=== PATIENT | female | born 1995 | race Caucasian/White ===

== ENCOUNTER 2021-02-15 17:50 | Emergency (ER) | payer OTHER, BC, SELFPAY ==
[2021-02-15 18:05] VITALS: BP 137/84; PULSE 81; RESP 16; TEMP 37; O2SAT 99
[2021-02-15 18:07] VITALS: BP 137/84; PULSE 81; RESP 16; TEMP 37; O2SAT 99
--- NOTE | 2021-02-15 18:31 | ED.EAR ---
HPI - Ear Problem General Chief complaint: Ear Stated complaint: Ear Pain Time Seen by Provider: 02/15/21 18:21 Source: patient and RN notes reviewed Mode of arrival: ambulatory Limitations: no limitations History of Present Illness HPI Narrative: Patient presents today complaining of right ear pain x1 week with sore throat, congestion, sinus pressure, and headache x2 days. Patient saw a teledoc 3 days ago and was placed on azithromycin for her right ear pain and is on the last day of her pills and is not having any relief. She has not tried any [id number] medication for her symptoms. MD Complaint: ear pain Related Data Home Medications Medication Instructions Recorded Confirmed azithromycin 250 mg PO DIRECTED 02/15/21 02/15/21 medroxyprogesterone 10 mg PO DAILY 02/15/21 02/15/21 Allergies Allergy/AdvReac Type Severity Reaction Status Date / Time No Known Allergies Allergy Verified 02/15/21 18:04 Review of Systems Review of Systems: CONSTITUTIONAL: Denies body aches, fever, chills, or sweats. EYES: Denies visual changes, redness, or discharge. ENT: Denies rhinorrhea. + Sore throat, right ear pain, nasal congestion CARDIOVASCULAR: Denies chest pain, palpitations, or edema. RESPIRATORY: Denies cough or dyspnea. GASTROINTESTINAL: Denies abdominal pain, nausea, vomiting, or diarrhea. GENITOURINARY: Denies dysuria or hematuria. SKIN: Denies rash, itching, or wounds. MUSCULOSKELETAL: Denies back pain, joint pain, or myalgia. NEUROLOGIC: Denies numbness, tingling, or weakness.+ Headache PSYCH: Denies depression or anxiety. PMFSH Comments At time of signature, I have reviewed and agree with nursing past medical, surgical, social and family history unless otherwise noted. Please see nursing chart for further information. There is no relevant family history pertinent to the presenting complaint Exam Narrative: GENERAL: Well-appearing, well-nourished, and in no acute distress. HEAD: Normocephalic, atraumatic. EYES: EOMI. No redness or drainage. Conjunctivae normal. ENT: Mucous membranes pink and moist. Nares congested. No rhinorrhea. Left TM normal. Right TM is occluded with a deep cerumen impaction. Throat mildly erythematous without edema or exudate. Uvula midline. NECK: Normal AROM. Supple. No lymphadenopathy. CHEST: No respiratory distress. Clear to auscultation. HEART: Regular rate and rhythm. No murmur appreciated. Normal peripheral pulses. EXTREMITIES: Normal range of motion. No edema. SKIN: Warm, dry, no rash. Capillary refill normal. Normal skin turgor. NEURO: No focal deficits. Alert and oriented x3. Gait steady. PSYCH: Normal affect. No signs of depression or anxiety. Course Vital Signs Vital signs: Vital Signs Temperature 98.6 F 02/15/21 18:05 Pulse Rate 81 02/15/21 18:05 Respiratory Rate 16 02/15/21 18:05 Blood Pressure 137/84 02/15/21 18:05 Pulse Oximetry 99 02/15/21 18:05 Temperature 98.6 F 02/15/21 18:07 Pulse Rate 81 02/15/21 18:07 Respiratory Rate 16 02/15/21 18:07 Blood Pressure 137/84 02/15/21 18:07 Pulse Oximetry 99 02/15/21 18:07 Reviewed. Pt has been instructed to follow up with her PCP regarding her elevated blood pressure today. Medical Decision Making Differential Diagnosis Differential Diagnosis: URI, AOM, otitis externa, rhinitis, migraine Vital Signs Vital Signs: Vital Signs Temperature 98.6 F 02/15/21 18:05 Pulse Rate 81 02/15/21 18:05 Respiratory Rate 16 02/15/21 18:05 Blood Pressure 137/84 02/15/21 18:05 Pulse Oximetry 99 02/15/21 18:05 Temperature 98.6 F 02/15/21 18:07 Pulse Rate 81 02/15/21 18:07 Respiratory Rate 16 02/15/21 18:07 Blood Pressure 137/84 02/15/21 18:07 Pulse Oximetry 99 02/15/21 18:07 Critical Care Time Critical Care Time Critical Care Time: No Discharge Plan Discharge Clinical Impression: Right ear impacted cerumen URI (upper respiratory infection)
== END 2021-02-15 18:40 | disposition home or self-care (01) ==
PROVIDERS: Emergency Provider Nurse Practitioner; PCP Family Medicine
DX: H61.21 Impacted cerumen, right ear (principal); J06.9 Acute upper respiratory infection, unspecified; J02.9 Acute pharyngitis, unspecified; E28.2 Polycystic ovarian syndrome
CPT/HCPCS: 99213; G0463

== ENCOUNTER 2022-03-29 10:59 | Outpatient (RCR) | payer BC, SELFPAY ==
[2022-03-29 11:42] VITALS: BP 123/74; PULSE 89
== END 2022-06-27 23:59 | disposition home or self-care (01) ==
LOC: ANHOBOP 10:59
PROVIDERS: PCP Family Medicine; Visit Provider Obstetrics & Gynecology
DX: O36.8120 Decreased fetal movements, second trimester, not applicable or unspecified (principal); Z3A.21 21 weeks gestation of pregnancy
CPT/HCPCS: 59025

== ENCOUNTER 2024-05-03 20:19 | Emergency (ER) | payer OTHER, SELFPAY ==
[2024-05-03 20:20] VITALS: BP 135/79; PULSE 90; RESP 18; TEMP 36.2; O2SAT 100
--- OUTSIDE RECORDS SUMMARY | 2024-05-03 20:21 | XMS_ITS | Clinical Summary ---
Author Organization [facility] Address [address] [place] [address] Phone Care Team Providers Care [employer] P8 Developer Name Role Phone Lexx Varma MD Primary Care Provider [phone] Lexx Varma MD Unavailable [phone] Medications Norethindrone, Contraceptive, 0.35 MG Tablet TK 1 T PO QD 02/27/2019 Active Family History Medical History Relation Name Comments No Known Problems Father Liver Disease Maternal Aunt Thyroid Cancer Mother Liver Disease Paternal Grandmother MCGRATH Relation Name Status Comments Father Maternal Aunt Mother Paternal Grandmother Social History Tobacco Use Types Packs/Day Years Used Date Smoking Tobacco: Never Smokeless Tobacco: Never Tobacco Cessation:Counseling Given: No Alcohol Use Standard Drinks/Week Comments Yes 0 (1 standard drink = 0.6 oz pur e alcohol) coulpe times a month Sexually Active Control Partners Comments Yes Comments No Sex and Gender Information Value Date Recorded Sex Assigned at Not on file Legal Sex Female 2:51 AM EGG SEPARATOR Gender Identity Not on file Sexual Orientation Not on file 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 Not on file Not on file Student Not on file Not on file Not on file Last Filed Vital Signs Vital Sign Reading Time Taken Comments Blood Pressure 118/76 03/27/2019 9:25 AM EGG SEPARATOR Pulse 82 03/27/2019 9:25 AM EGG SEPARATOR Temperature - - Respiratory Rate 16 03/27/2019 9:25 AM EGG SEPARATOR Oxygen Saturation 98% 03/27/2019 9:25 AM EGG SEPARATOR Inhaled Oxygen Concentration - - Weight 94.8 kg (209 lb) 03/27/2019 9:25 AM EGG SEPARATOR Height 167.6 cm (5' 6 ) 03/27/2019 9:25 AM EGG SEPARATOR Body Mass Index 33.73 03/27/2019 9:25 AM EGG SEPARATOR Plan of Treatment Health Maintenance Due Date Last Done Comments Hepatitis C Virus (HCV) Screening 1994 Influenza Immunization (#1) 2023 03/27/2008 SARS-COV-2 Immunization ( season) 2023 02/28/2021, 07/02/2020, 06/11/2020 Respiratory Syncytial Virus (RSV) Immunization (Adult) (1 - 1-dose 75+ series) 2069 Hepatitis B Immunization Completed 996, 01/31/1995, 1994, Additional history exists DTaP/Tdap/Td Immunization Discontinued 2006, 03/21/1997, 12/14/1995, Additional history exists TdaP Immunization Completed 06/26/2006 Human Papillomavirus (HPV) Immunization Discontinued 11/04/2008 Meningococcal Immunization (ACWY) Aged Out 11/04/2008 No longer eligible based on patient's age to complete this topic Pneumococcal Immunization Combined Aged Out No longer eligible based on patient's age to complete this topic Rotavirus Immunization Aged Out No lo nger eligible based on patient's age to complete this topic Insurance MEDICAID [place] [employer] Care Teams [employer] P8 Developer Relationship Specialty Start Date End Date Lexx Varma MD [address] [place] [address] [place] [address] PCP - General Family Medicine 11/23/20 Lexx Varma MD [address] [place] [address] [place] [address] Family Medicine 11/23/20
--- OUTSIDE RECORDS SUMMARY | 2024-05-03 20:21 | XMS_ITS | Referral Summary ---
Author Organization [facility] Address [address] [place] [address] Care Team Providers Care Bight Maker Name Role Phone Hazel Foley RONN-MINCING MACHINE OPERATOR Primary Care Provider [phone] Source Comments [facility],non-owned Affiliates and Associated Physician Practices is amultiple site organization consisting of ambulatory clinics and [place]in [place] and [place]. This disclosure is being madepursuant to the Care Everywhere program and may not contain all information available regarding this patient. Last updated 17.[facility] Encounters Date Type Department Care Team Description 04/11/2024 Travel 04/11/2024 8:00 AM CONCRETE ENGINEERING TECHNICIAN Procedure visit [facility] - WAX COATING MACHINE TENDER [address] [place] [address] Encounter for imaging to assess myocardial viability 03/20/2024 Orders Only [facility] - WAX COATING MACHINE TENDER [address] [place] [phone] Jacobo Mukherjee MD Missed menses 02/23/2024 Orders Only [facility] - WAX COATING MACHINE TENDER [address] [place] [phone] Jacobo Mukherjee MD 02/05/2024 11:30 AM CDT Procedure visit [facility] - WAX COATING MACHINE TENDER [address] [place] [phone] Jacobo Mukherjee MD Encounter for IUD removal 02/05/2024 Travel from Last 3 Months Allergies No known active allergies Medications * Be aware that medications may not be up to date on this document. Alwaysverify current medications with the patient. Medication Sig Dispensed Refills Start Date End Date Status Vit-DSS-Fe Fum-FA ( vitamin with iron) tablet Take 1 (one) tablet by mouth once daily Active busPIRone (Buspar) 7.5 MG tablet TAKE 1 TABLET BY MOUTH TWICE DAILY AND 1 TABLET NEEDED FOR ANXIETY Active escitalopram (Lexapro) 10 MG tablet Take 1 (one) tablet by mouth once daily 10/04/2023 Active ondansetron, disintegrating, (Zofran ODT) 4 MG tablet Take 2 (two) tablets by mouth every 8 hours as needed 01/01/2024 Active semaglutide (Wegovy) 1.7 MG/0.75ML pen Inject 1.7 mg subcutaneously every 7 days 01/29/2024 Active letrozole (Femara) 2.5 MG tablet Take two tablets daily days 3-7 of your cycle 10 tablet 5 02/23/2024 Active Active Problems Problem Noted Date Diagnosed Date Irregular menses 12/19/2022 Postcoital bleeding 12/19/2022 Encounter for routine checki ng of intrauterine contraceptive device (IUD) 12/19/2022 Encounter for supervision of low-risk , antepartum 08/02/2022 Abdominal cramping affecting 3 Comments Yes Immunizations Name Administration Dates Next Due MMR 08/05/2022(Deferred: - Mother is rubella immune) TDAP (7yrs+) 08/04/2022(Deferred: See Comment s - received 05/16/22),05/16/2022 Social History Tobacco Use Types Packs/Day Years Used Date Smoking Tobacco: Never Smokeless Tobacco: Never Tobacco Cessation:Counseling Given: Not Answered Alcohol Use Standard Drinks/Week Comments Never 0 (1 standard drink = 0.6 oz pur e alcohol) AUDIT-C Answer Date Recorded Q1: How often do you have a drink containing alc ohol? Never 06/02/2020 Average Number of Drinks Not on file 021 Q3: How often do you have si x or more drinks on one occasion? Never 06/02/2020 Overall Financial Resource Strain (CARDIA) Answe r Date Recorded How hard is it for you to pa y for the very basics like food, housing, medical care, and heating? Not very hard 08/02/2022 PHQ-2 Answer Date Recorded PHQ2 TOTAL SCORE 0 10/19/2022 [facility] - Occupational Stress Questionnaire Answer Date Recorded Do you feel stress - tense, restless, nervous, or anxious, or unable to sleep at night because your mind is troubled all the time - these days? Not at all 08/02/2022 Hunger Vital Sign Answer Date Recorded Within the past 12 months, y ou worried that your food would run out before you got the money to buy more. Never true 08/03/19 Within the past 12 months, t he food you bought just didn't last and you didn't have money to get more. Never true 08/02/2022 PRAPARE - Transportation Answer Date Re corded In the past 12 months, has l ack of transportation kept you from medical appointments or from getting medications? No 07/10 In the past 12 months, has l ack of transportation kept you from meetings, work, or from getting things needed for daily living? No 08/02/2022 Housing Stability Vital Sign Answer Juventino e Recorded In the last 12 months, was t here a time when you were not able to pay the mortgage or rent on time? No 08/02/2022 In the last 12 months, how many places have you lived? 1 08/02/2022 In the last 12 months, was t here a time when you did not have a steady place to sleep or slept in a long-term (including now)? No 08/02/2022 [place] Depression Scale Answer Date Recorded [place] Depression Scale Total 1 08/04/2022 The thought of harming myself has occurred to me . Never 08/04/2022 Comments Yes Sex and Gender Information Value Date Recorded Sex Assigned at Not on file Gender Identity Not on file Sexual Orientation Straight 11/23/2020 11 :24 AM CDT Last Filed Vital Signs Vital Sign Reading Time Taken Comments Blood Pressure 120/80 02/05/2024 11:05 AM CDT Pulse 56 08/05/2022 9:55 AM CDT Temperature 36.8 ??C (98.2 ??F) 08/05/2022 9:55 AM CD T Respiratory Rate 18 08/05/2022 9:55 AM CDT Oxygen Saturation 98% 08/05/2022 9:55 AM CDT Inhaled Oxygen Concentration - - Weight 76.2 kg (168 lb) 02/05/2024 11:05 AM CDT Height 167.6 cm (5' 6 ) 02/05/2024 11:05 AM CDT Body Mass Index 27.12 02/05/2024 11:05 AM CDT Functional Status Functional Status Response Date of Assess ment Is person deaf or have serious hearing difficult y? No 08/02/2022 Is person blind or have serious difficulty seein g? No 08/02/2022 Does person have serious dif ficulty walking/climbing stairs? No 08/02/2022 Does person have difficulty dressing/bathing? No 08/02/2022 Does person have difficulty doing errands alone? No 08/02/2022 Cognitive Status Response Date of Assessm ent Does person have difficulty concentrating/remembering/making decisions? No 08/02/2022 Plan of Treatment Upcoming Encounters Date Type Department Care Team (Late st Contact Info) Description 05/08/2024 9:00 AM CONCRETE ENGINEERING TECHNICIAN visit [facility] - WAX COATING MACHINE TENDER [address] [phone] Jacobo Mukherjee MD [address] [place] [phone] 06/05/2024 9:00 AM CONCRETE ENGINEERING TECHNICIAN visit [facility] - WAX COATING MACHINE TENDER [address] [facility] [address] [place] [phone] Jacobo Mukherjee MD [address] [place] [address] [address] [place] [phone] Procedures Procedure Name Priority Date/Time Associated Diagnosis Comments SONOGRAM - TRANSVAGINAL Routine 04/11/2024 8:20 AM CONCRETE ENGINEERING TECHNICIAN Encounter for imaging to assess myocardial viability HCG BETA BLOOD QUANTITATIVE Routine 03/25/2024 10:35 AM CONCRETE ENGINEERING TECHNICIAN Missed menses HCG BETA BLOOD QUANTITATIVE BRYCE 03/19/2024 3:26 PM CONCRETE ENGINEERING TECHNICIAN Positive urine test (HCC) FL REMOVE INTRAUTERINE DEVICE Routine 02/05/2024 11:34 AM CDT Encounter for IUD removal CULTURE STREP B Routine 07/11/2022 3:51 PM CDT Normal , third trimester (HCC) HIV-1 HIV-2 ANTIBODY + HIV P24 AG PANEL Routine 05/16/2022 Supervision of normal first in third trimester (HCC) GTT 1 HR (50G) GESTATIONAL SCREEN Routine 04/30/2022 8:04 AM CONCRETE ENGINEERING TECHNICIAN 24 weeks gestation of (HCC) HEPATITIS C AB W/RFLX TO HCV RNA QN PCR 12/25/2021 12:34 PM CDT from Last 3 Months or Most Recently Relevant to Health Maintenance Results * SONOGRAM - TRANSVAGINAL (04/11/2024 8:20 AM CONCRETE ENGINEERING TECHNICIAN) Linked Results Indication ======== NOB History ====== OB History ? 2. Para 1 Maternal Assessment Physical Exam ??Height 168 cm, 5 ft 6 in. Weight 78 kg, 172 lb. Initial weight 78 kg, 172 lb. BMI 27.76 kg/m?. Initial BMI 27.76 kg/m?. Weight gain 0 ? kg, 0 lb Method ====== Transvaginal ultrasound. View: Sufficient ========= [place] . Number of embryos: 1 Dating ====== ? Date ?Details ? Gest. age ? JOAN LMP ?02/22/2024 ?7 w + 0 d ? 11/28/2024 U/S ? 04/11/2024 ? based upon CRL ?6 w + 6 d ? 11/29/2024 Assigned dating based on the LMP, selected on 04/11/2024 ?7 w + 0 d ? 11/28/2024 Assessment Gestational sac: visualized. Location: intrauterine Yolk sac: visualized Embryo: visualized Cardiac activity: present YS ? 3.3 ? mm ?3% ?Grisolia CRL ?8.5 ? mm ?6w 6d ?? 49% ? Hadlock FHR ?125 ? bpm Maternal Structures Uterus Size 97 mm x 70 mm x 50 mm. Vol 178.2 cm? Right Ovary ?Visualized ? Size 26 mm x 15 mm x 26 mm. Vol 5.3 cm? Left Ovary ? Visualized ? Size 40 mm x 34 mm x 48 mm. Vol 34.4 cm? Cyst(s) ? 1. ?Size 34.9 mm x 27.0 mm x 30.3 mm. Mean 30.7 mm. Vol 14.950 cm?. Simple cyst ? 2. ?Size 28.7 mm x 26.9 mm x 31.6 mm. Mean 29.1 mm. Vol 12.774 cm?. Simple cyst Cul de Sac ? Visualized. Minimal free fluid visualized Impression ========= Single, live, intrauterine at 7w 0d Follow-up ======== Follow up Follow up ultrasound in 3 weeks Coding ====== Procedures ? 40306: US Preg Uterus Transvaginal [place] PACS Anatomical Region Laterality Modality Other 04/11/2024 8:20 AM CONCRETE ENGINEERING TECHNICIAN Jacobo Mukherjee MD [facility] ORDERABLES * (ABNORMAL) HCG BETA BLOOD QUANTITATIVE (03/25/2024 10:35 AM CONCRETE ENGINEERING TECHNICIAN) Only the most recent of2 resultswithin the time period is included. HCG Quant 522(H) mIU/mL [facility] Comment: Reference Range Non or premenopausal ?<5 Postmenopausal ? <10 Values from different assay methods may vary. The use of this assay to monitor or to diagnose patients with cancer or any condition unrelated to has not been cleared or approved by the FDA or the pyrometallurgical engineer of the assay. Test Performed at: [email or web address] ??[id number] DEE ARELLANO MD Blood BLOOD SPECIMEN / Unknown 03/25/2024 10:35 AM CONCRETE ENGINEERING TECHNICIAN 03/25/2024 10:37 AM CONCRETE ENGINEERING TECHNICIAN Jacobo Mukherjee MD LAB - CHEMISTRY ORD ERABLES [address] [address] * FL REMOVE INTRAUTERINE DEVICE (02/05/2024 11:34 AM CDT) Narrative Jacobo Mukherjee MD - 02/05/2024 11:34 AM CDT Jacobo Mukherjee MD ? 02/05/2024 11:34 AM See note Jacobo Mukherjee MD PROCEDURE/MINOR SABRINA GICAL ORDERABLES * CULTURE STREP B (07/11/2022 3:51 PM CDT) [facility] Culture [facility] Comment: ??STREPTOCOCCUS, GROUP B CULTURE ?Micro Number: ?[id number] ??Test Status: ? Final ??Specimen Source: ?? Anorectum/va ??Specimen Quality: ??Adequate ??Result: ?No group B Streptococcus isolated ? Note per CDC guidelines optimal recovery is ? achieved by swabbing both the lower vagina and ? rectum (through the anal sphincter). Test Performed at: [email or web address] ??[phone] DEE ARELLANO MD Microbiology MISCELLANEOUS SAMPLES / Unknown 07/11/2022 3:51 PM CDT 07/12/2022 1:56 AM CDT Jacobo Mukherjee MD LAB - MICROBIOLOGY ORDERABLES Performing Organization Address [facility] Co de Phone Number [address] [address] * HIV-1 HIV-2 ANTIBODY + HIV P24 AG PANEL (05/16/2022) [facility] HIV Screen 4th Generation w Reflex NON-REACT DALIA NON-REACT DALIA [facility] Comment: HIV-1 antigen and HIV-1/HIV-2 antibodies were not detected. There is no laboratory evidence of HIV infection. PLEASE NOTE: This information has been disclosed to you from records whose confidentiality may be protected by state law. ??If your state requires such protection, then the state law prohibits you from making any further disclosure of the information without the specific written consent of the person to whom it pertains, or as otherwise permitted by law. A general authorization for the release of medical or other information is NOT sufficient for this purpose. ?? For additional information please refer to http://education.CEPA Safe Drive/faq/IZO786 (This link is being provided for informational/ educational purposes only.) The performance of this assay has not been clinically validated in patients less than 2 years old. Test Performed at: [facility] [address] [place], [place] ??[phone] DEE ARELLANO MD Blood BLOOD SPECIMEN / Unknown 05/16/2022 05/16/2022 3:17 PM CONCRETE ENGINEERING TECHNICIAN Jacobo Mukherjee MD LAB - CHEMISTRY ORD ERABLES Performing Organization Address [facility] Co de Phone Number [facility] [address] [place] [address] * GTT 1 HR (50G) GESTATIONAL SCREEN (04/30/2022 8:04 AM CONCRETE ENGINEERING TECHNICIAN) Pathologist [facility] Glucose Gestational Screen 128 <140 mg/dL [facility] Comment: REPORT COMMENT: FASTING:YES Test Performed at: [place] ??[phone] JENNIFER AMOR DO,MPH Blood BLOOD SPECIMEN / Unknown 04/30/2022 8:04 AM CONCRETE ENGINEERING TECHNICIAN 04/30/2022 8:10 AM CONCRETE ENGINEERING TECHNICIAN Jacobo Mukherjee MD LAB - CHEMISTRY ORD ERABLES Performing Organization Address [facility] Co de Phone Number [facility] [address] [place] [address] * HEPATITIS C AB W/RFLX TO HCV RNA QN PCR (12/25/2021 12:34 PM CDT) Pathologist [facility] Hepatitis C Antibody NON-REACTI VE NON-REACT DALIA [facility] Signal to Cut-Off 0.01 <1.00 [facility] Comment: HCV antibody was non-reactive. There is no laboratory evidence of HCV infection. In most cases, no further action is required. However, if recent HCV exposure is suspected, a test for HCV RNA (test code 89931) is suggested. For additional information please refer to http://education.CEPA [address]/faq/VBI78o5 (This link is being provided for informational/ educational purposes only.) Test Performed at: [facility] [address] [place], [place] ??[phone] JENNIFER AMOR DO,MPH 12/25/2021 12:3 4 PM CDT 12/25/2021 12:39 PM CDT Jacobo Mukherjee MD LAB - CHEMISTRY ORD ERABLES [facility] [address] [place] [address] from Last 3 Months or Most Recently Relevant to Health Maintenance Insurance Payer Benefit Plan / Group Subscriber ID Effective Dates Phone Address Type ANTHEM BLUE CROSS TRADITIONAL [id number] 01/18/2021-Pr esent [address] [place] [address] PPO ANTHEM BLUE CROSS TRADITIONAL [id number] 01/18/2021-Pr esent [address] [place] [address] PPO ANTHEM BLUE CROSS TRADITIONAL [id number] 01/18/2021-Pr esent [address] [place] [address] PPO ANTHEM BLUE CROSS TRADITIONAL [id number] 01/18/2021-Pr esent [address] [place] [address] PPO ANTHEM BLUE CROSS TRADITIONAL [id number] 01/18/2021-Pr esent [address] [place] [address] PPO ANTHEM BLUE CROSS TRADITIONAL [id number] 01/18/2021-Pr esent [address] [place] [address] PPO ANTHEM BLUE CROSS TRADITIONAL [id number] 01/18/2021-Pr esent [address] [place] [address] PPO ANTHEM BLUE CROSS TRADITIONAL [id number] 01/18/2021-Pr esent [address] [place] [address] PPO ANTHEM BLUE CROSS TRADITIONAL [id number] 01/18/2021-Pr esent [address] [place] [address] PPO ANTHEM BLUE CROSS TRADITIONAL [id number] 01/18/2021-Pr esent [address] [place] [address] PPO ANTHEM BLUE CROSS TRADITIONAL [id number] 01/18/2021-Pr esent [address] [place] [address] PPO ANTHEM BLUE CROSS TRADITIONAL [id number] 01/18/2021-Pr esent [address] [place] [address] PPO ANTHEM BLUE CROSS TRADITIONAL [id number] 01/18/2021-Pr esent [address] [place] [address] PPO ANTHEM BLUE CROSS TRADITIONAL [id number] 01/18/2021-Pr esent [address] [place] [address] PPO ANTHEM BLUE CROSS TRADITIONAL [id number] 01/18/2021-Pr esent [address] [place] [address] PPO ANTHEM BLUE CROSS TRADITIONAL [id number] 01/18/2021-Pr esent [address] [place] [address] PPO ANTHEM BLUE CROSS TRADITIONAL [id number] 01/18/2021-Pr esent [address] [place] [address] PPO ANTHEM BLUE CROSS TRADITIONAL [id number] 01/18/2021-Pr esent [address] [place] [address] PPO ANTHEM BLUE CROSS TRADITIONAL [id number] 01/18/2021-Pr esent [address] [place] [address] PPO ANTHEM BLUE CROSS TRADITIONAL [id number] 01/18/2021-Pr esent [address] [place] [address] PPO ANTHEM BLUE CROSS TRADITIONAL [id number] 01/18/2021-Pr esent [address] [place] [address] PPO ANTHEM BLUE CROSS TRADITIONAL [id number] 01/18/2021-Pr esent [address] [place] [address] PPO ANTHEM BLUE CROSS TRADITIONAL [id number] 01/18/2021-Pr esent [address] [place] [address] PPO ANTHEM BLUE CROSS TRADITIONAL [id number] 01/18/2021-Pr esent [address] [place] [address] PPO ANTHEM BLUE CROSS TRADITIONAL [id number] 01/18/2021-Pr esent [address] [place] [address] PPO CIGNA CIGNA OAP Skyera [id number] 04/10/2021-Pres ent [phone] [address] MELISSA THOMPSON [address] O [facility] [id number] Effective for all dates [address] [place] [address] Medicaid [place] ANTHEM BLUE CROSS TRADITIONAL [id number] 01/18/2021-Pr esent [address] [place] [address] PPO [facility] [id number] Effective for all dates [address] [place] [address] Medicaid [place] ANTHEM BLUE CROSS TRADITIONAL [id number] 01/18/2021-Pr esent [address] [place] [address] [facility]PO [facility] [id number] Effective for all dates [address] [place] [address] Medicaid [place] ANTHEM BLUE CROSS TRADITIONAL [id number] 01/18/2021-Pr esent [address] [place] [address] [facility]PO [facility] [id number] Effective for all dates [address] [place] [address] Medicaid [place] ANTHEM BLUE CROSS TRADITIONAL [id number] 01/18/2021-Pr esent [address] [place] [address] [facility]PO [facility] [id number] Effective for all dates [address] [place] [address] Medicaid [place] ANTHEM BLUE CROSS TRADITIONAL [id number] 01/18/2021-Pr esent [address] [place] [address] PPO [facility] [id number] Effective for all dates [address] [place] [address] Medicaid [place] ANTHEM BLUE CROSS TRADITIONAL [id number] 01/18/2021-Pr esent [address] [place] [address] PPO [facility] [id number] Effective for all dates [address] [place] [address] Medicaid [place] ANTHEM BLUE CROSS TRADITIONAL [id number] 01/18/2021-Pr esent [address] [place] [address] PPO [facility] [id number] Effective for all dates [address] [place] [address] Medicaid [place] ANTHEM BLUE CROSS TRADITIONAL [id number] 01/18/2021-Pr esent [address] [place] [address] PPO [facility] [id number] Effective for all dates [address] [place] [address] Medicaid [place] ANTHEM BLUE CROSS TRADITIONAL [id number] 01/18/2021-Pr esent [address] [place] [address] [facility]PO [facility] [id number] Effective for all dates [address] [place] [address] Medicaid [place] ANTHEM BLUE CROSS TRADITIONAL [id number] 01/18/2021-Pr esent [address] [place] [address] [facility]PO [facility] [id number] Effective for all dates [address] [place] [address] Medicaid [place] ANTHEM BLUE CROSS TRADITIONAL [id number] 01/18/2021-Pr esent [address] [place] [address] PPO [facility] [id number] Effective for all dates [address] [place] [address] Medicaid [place] ANTHEM BLUE CROSS TRADITIONAL [id number] 01/18/2021-Pr esent [address] [place] [address] [facility]PO [facility] [id number] Effective for all dates [address] [place] [address] Medicaid [place] ANTHEM BLUE CROSS TRADITIONAL [id number] 01/18/2021-Pr esent [address] [place] [address] PPO [facility] [id number] Effective for all dates [address] [place] [address] Medicaid [place] ANTHEM BLUE CROSS TRADITIONAL [id number] 01/18/2021-Pr esent [address] [place] [address] PPO [facility] [id number] Effective for all dates [address] [place] [address] Medicaid [place] ANTHEM BLUE CROSS TRADITIONAL [id number] 01/18/2021-Pr esent [address] [place] [address] PPO [facility] [id number] Effective for all dates [address] [place] [address] Medicaid [place] ANTHEM BLUE CROSS TRADITIONAL [id number] 01/18/2021-Pr esent [address] [place] [address] PPO [facility] [id number] Effective for all dates [address] [place] [address] Medicaid [place] ANTHEM BLUE CROSS TRADITIONAL [id number] 01/18/2021-Pr esent [address] [place] [address] PPO [facility] [id number] Effective for all dates [address] [place] [address] Medicaid [place] ANTHEM BLUE CROSS TRADITIONAL [id number] 01/18/2021-Pr esent [address] [place] [address] PPO [facility] [id number] Effective for all dates [address] [place] [address] Medicaid [place] ANTHEM BLUE CROSS TRADITIONAL [id number] 01/18/2021-Pr esent [address] [place] [address] PPO ANTHEM BLUE CROSS TRADITIONAL [id number] 01/18/2021-Pr esent [address] [place] [address] PPO ANTHEM BLUE CROSS TRADITIONAL [id number] 01/18/2021-Pr esent [address] [place] [address] PPO ANTHEM BLUE CROSS TRADITIONAL [id number] 01/18/2021-Pr esent [address] [place] [address] PPO ANTHEM BLUE CROSS TRADITIONAL [id number] 01/18/2021-Pr esent [address] [place] [address] PPO ANTHEM BLUE CROSS TRADITIONAL [id number] 01/18/2021-Pr esent [address] [place] [address] PPO ANTHEM BLUE CROSS TRADITIONAL [id number] 01/18/2021-Pr esent [address] [place] [address] PPO ANTHEM BLUE CROSS TRADITIONAL [id number] 01/18/2021-Pr esent [address] [place] [address] PPO ANTHEM BLUE CROSS TRADITIONAL [id number] 01/18/2021-Pr esent [address] [place] [address] PPO ANTHEM BLUE CROSS TRADITIONAL [id number] 01/18/2021-Pr esent [address] [place] [address] PPO ANTHEM BLUE CROSS TRADITIONAL [id number] 01/18/2021-Pr esent [address] [place] [address] PPO ANTHEM BLUE CROSS TRADITIONAL [id number] 01/18/2021-Pr esent [address] [place] [address] PPO ANTHEM BLUE CROSS TRADITIONAL [id number] 01/18/2021-Pr esent [address] [place] [address] PPO ANTHEM BLUE CROSS TRADITIONAL [id number] 01/18/2021-Pr esent [address] [place] [address] PPO ANTHEM BLUE CROSS TRADITIONAL [id number] 01/18/2021-Pr esent [address] [place] [address] PPO ANTHEM BLUE CROSS TRADITIONAL [id number] 01/18/2021-Pr esent [address] [place] [address] PPO ANTHEM BLUE CROSS TRADITIONAL [id number] 01/18/2021-Pr esent [address] [place] [address] PPO ANTHEM BLUE CROSS TRADITIONAL [id number] 01/18/2021-Pr esent [address] [place] [address] PPO ANTHEM BLUE CROSS TRADITIONAL [id number] 01/18/2021-Pr esent [address] [place] [address] PPO ANTHEM BLUE CROSS TRADITIONAL [id number] 01/18/2021-Pr esent [address] [place] [address] PPO ANTHEM BLUE CROSS TRADITIONAL [id number] 01/18/2021-Pr esent [address] [place] [address] PPO ANTHEM BLUE CROSS TRADITIONAL 01/18/2021-Pr esent [address] [place] [address] PPO [facility] PPO [id number] 11/09/2019-[facility] [address] [address] [place] [address] PPO ANTHEM BLUE CROSS TRADITIONAL 01/18/2021-Pr esent [address] [place] [address] PPO ANTHEM BLUE CROSS TRADITIONAL 01/18/2021-Pr esent [address] [place] [address] PPO [facility] PPO [id number] 11/09/2019-Pres ent [phone] [address] [address] [place] [address] PPO MEDICAID - OUT OF STATE MEDICAID - [place] [employer] [id number] Effective for all dates [address] [address] [place] [address] Medicaid Advance Directives * Full Code (Latest Code Status on File) Date Activated Date Inactivated Comments 08/02/2022 8:15 AM 08/05/2022 2:02 PM Care Teams Bight Maker Relationship Specialty Start Date End Date Hazel Foley APRN-NADINE [address] [place] [address] PCP - General Nurse Practitioner Family 02/05/24
--- OUTSIDE RECORDS SUMMARY | 2024-05-03 20:21 | XMS_ITS | Referral Summary ---
Author Organization [facility] [address] Address [address] [place] [id number] Care Team Providers Care Human Resources Supervisor Name Role Phone Lexx Varma MD Unavailable [phone] Hazel Foley NP Primary Care Provider [phone] Allergies No known active allergies Medications cetirizine (ZyrTEC) 10 mg tablet Take by mouth 020 Active levonorgestreL (MIRENA) IUD 1 each by intrauterine route once Active busPIRone (BUSPAR) 7.5 mg tablet TAKE 1 TABLET BY MOUTH TWICE DAILY AND 1 TABLET NEEDED FOR ANXIETY 90 tablet 3 024 Active ondansetron ODT (ZOFRAN-ODT) 4 mg disintegrating tablet Take 2 tablets (8 mg total) by mouth every 8 (eight) hours as needed for nausea or vomiting 20 tablet 024 Active semaglutide (WEGOVY) 1.7 mg/0.75 mL auto-injector Inject 0.75 mL (1.7 mg total) under the skin every 7 days 9 mL 1 024 Active escitalopram (LEXAPRO) 10 mg tablet TAKE 1 TABLET(10 MG) BY MOUTH DAILY 90 tablet 1 025 Active escitalopram (LEXAPRO) 10 mg tablet Take 1 tablet (10 mg total) by mouth daily 90 tablet 1 024 2024 Discontinued Active Problems Problem Noted Date Diagnosed Date Encounter for routine adult physical exam with abnormal findings 01/10/2024 Assessment & Plan (01/10/2024 9:05 AM CDT): -Recommended: Healthy diet. Avoiding junk food/fast food. -30 minutes of exercise most days of the week. Increase to 45 minutes for weight loss. Health Maintenance reviewed - reviewed labs. -Influenza vaccine every year Recommend: -There are no preventive care reminders to display for this patient. -F/u in 1 year for Annual PE or sooner if needed BMI 27.0-27.9,adult 01/10/2024 Other headache syndrome 10/04/2023 Assessment & Plan (10/04/2023 8:58 AM CDT): Patient will continue taking supportive measures (hydrating and ibuprofen as needed). If Headaches continue patient instructed to come back in to talk about migraine medications Class 2 severe obesity due t o excess calories with serious comorbidity and body mass index (BMI) of 35.0 to 35.9 in adult 08/03/2023 Assessment & Plan (01/10/2024 9:06 AM CDT): Improved. BMI down to 27.5. Doing quite well on Wegovy. Can continue on 1 mg as long as she is tolerating. Can increase to 1.7 mg when tolerating 1 mg well or weight loss lows. Assessment & Plan (10/04/2023 8:24 PM CDT): Continue with Wegovy. Will send over refill. Tolerating well without side effects. Increasing to 1.7mg weekly. F/u 3 months. Encouraged to reach out as needed. Assessment & Plan (08/03/2023 2:41 PM CDT): Increase Wegovy 2.5 mg weekly. She may call in 1 month and ask for refill of the 0.5 or if she feels like she wants to increase to 1 mg we could do that as well. Will have her follow-up in 2 months in office for med check Attention deficit hyperactiv ity disorder (ADHD), predominantly inattentive type 07/06/2023 Assessment & Plan (07/07/2023 7:59 AM CDT): CAARS score (scanned into media): Inattention/ Memory Problems: 70% Hyperactivity/ Restlessness:65% Impulsivity/emotional Lability:55% Problems with Self-Concept:50% ADHD Index: 67% Her screening is positive for ADD however patient states she is doing so much better on the Lexapro and symptoms are so much more controlled that she would like to hold off on starting any further medication at this time. She would like to see how well the Lexapro continues to do for her. Will have her follow-up in 3 months for med check. PCOS (polycystic ovarian syndrome) 06/08/2023 Assessment & Plan (01/10/2024 9:06 AM CDT): Improved. Patient currently has IUD and is managed by Gynecology. Has periodic spotting Assessment & Plan (08/03/2023 2:41 PM CDT): BMI Follow-up includes: nutrition counseling. Oral aphthous ulcer 06/08/2023 Assessment & Plan (06/08/2023 8:40 AM PLANING MACHINE OPERATOR): Seem to be resolving. Told her to call or message me if they seem to reoccur and we can try medication Anxiety 08/27/2019 Assessment & Plan (01/10/2024 9:06 AM CDT): Stable. Doing well on Lexapro 10 mg once daily Assessment & Plan (10/04/2023 8:23 PM CDT): Improved, continue lexapro at 10mg. Buspar 7.5 bid, third dose as needed. F/u 6 months Assessment & Plan (08/03/2023 2:40 PM CDT): States she wanted to discuss anxiety as well today. She still sees improvement from starting Lexapro. She used to not be able to walk through crowds. The other week she went to a baseball game with her and was able to get out of her chair and go to the bathroom and this was new for her. She would never have been able to get off the chair in a crowded baseball stadium and manage the crowd even to go to the bathroom. However she is noticed that she is still having some anxiety. She is still having thoughts that something bad is going to happen to her daughter. When she takes a shower she was afraid that her daughter is going to suffocate while lying in bed with her . If she is out with her in someone else's watching her daughter she is worried that something bad could happen to her and her and her daughter would be left without parents. At the same time she is having sexual side effects and this is causing difficulty for her. Plan: Will try adding BuSpar 7.5 mg b.i.d.. May add 3rd dose in the afternoon if needed. After 3-4 weeks can decrease Lexapro to 5 mg once daily. Will have her follow-up in 2 months for med check. May call in interim if any problems or concerns with medication changes Assessment & Plan (07/07/2023 7:58 AM CDT): Much improved on Lexapro 10 mg once daily. We will continue current medication and have her follow-up in 3 months for recheck Assessment & Plan (06/08/2023 8:36 AM PLANING MACHINE OPERATOR): Discussed starting a medication and pt is agreeable. Will start lexapro . Discussed starting dose and titration to full dose, possible SE and time frame for expected results. Call if any suicidal thoughts or questions concerning SE. Do not abruptly stop medication without calling office. Follow up in 3-4 weeks for recheck and continuation of medications. Seasonal allergies 08/27/2019 Overview (05/24/2023): Last Assessment & Plan: Condition: stable Discussed with Nikik to continue to take her allergy medications daily. If symptoms should worsen discussed with her other pharmaceutical options. Follow up as needed with PCP. Resolved Problems Problem Noted Date Diagnosed Date Resolved Date Acute non-recurrent frontal sinusitis 07/07/2023 10/04/2023 Assessment & Plan (07/07/2023 7:59 AM CDT): 1. Sudafed 2. Augmentin 3. Nasal saline rinses as needed for congestion. 4. Follow-up in 5-7 days - if symptoms worsen or persist Irregular menses 12/19/2022 06/08/2023 Postcoital bleeding 12/19/2022 06/08/19 Abdominal cramping affecting 07/04/2022 06/08/2023 GERD (gastroesophageal reflux disease) 08/27/2019 06/08/2023 Overview (05/24/2023): Last Assessment & Plan: Condition: stable Reviewed use of antacid medication and/or diet modifications of decreasing caffeine, spicy foods, chocolate, and avoiding alcohol, tobacco, NSAIDs, and reducing citrus acids. Follow up as scheduled with PCP/specialist. Immunizations Name Administration Dates Next Due DTP 01/31/1995 DTP / HiB 12/14/1995,1994,1994 DTaP 2016,07/12/2016,03/21/1997 HPV, Bivalent 11/04/2008 HPV9 04/16/2018,09/20/2017 Hep A, Adult 09/22/2015 Hep A, Pediatric 06/26/2006,10/05/2004 Hep B, Adolescent or Pediatric 6,01/31/1995,1994,09/08,1994 HiB 03/21/1997 IPV 11/26/1999 Influenza, Quadrivalent, Spl it, Preservative Free, Intramuscular 05/07/2019 Influenza, Trivalent, Preser vative Free, Intramuscular 01/10/2024 Influenza, Unspecified 06/08/2023(Deferr ed: Patient Refused),04/10/2022(Deferred: Patient Refused),03/27/2008 MMR 11/26/1999,03/21/1997 Meningococcal ACWY, Unspecified 11/04/2008 OPV 03/21/1997, 6,1994,09/22 Pfizer SARS-CoV-2 Monovalent Vaccination (12+ Yrs) PURPLE 07/02/2020,06/11/2020 Tdap 05/16/2022,06/26/2006 Varicella 11/04/2008,03/27/2008 Social History Tobacco Use Types Packs/Day Years Used Date Smoking Tobacco: Never Smokeless Tobacco: Never Tobacco Cessation:Counseling Given: Not Answered PHQ-2 Answer Date Recorded PHQ-2 Total Score (If total score is 3 or more points, staff should administer the PHQ-9) 0 01/10/2024 Comments Unknown Sex and Gender Information Value Date Recorded Sex Assigned at Not on file Legal Sex Female 10:18 AM PLANING MACHINE OPERATOR Gender Identity Not on file Sexual Orientation Not on file Last Filed Vital Signs Vital Sign Reading Time Taken Comments Blood Pressure 124/74 01/10/2024 8:32 AM CDT Pulse 82 01/10/2024 8:32 AM CDT Temperature 36.7 ??C (98.1 ??F) 01/10/2024 8:32 AM CD T Respiratory Rate 20 05/24/2023 11:0 3 AM PLANING MACHINE OPERATOR Oxygen Saturation 98% 01/10/2024 8:32 AM CDT Inhaled Oxygen Concentration - - Weight 77.4 kg (170 lb 11.2 oz) 01/10/2024 8:32 AM CDT Height 167.6 cm (5' 6 ) 01/10/2024 8:32 AM CDT Body Mass Index 27.55 01/10/2024 8:32 AM CDT Plan of Treatment Not on file Insurance [employer] Care Teams Human Resources Supervisor Relationship Specialty Start Date End Date Hazel Foley NP PCP - General Family Medicine 06/08/23 Lexx Varma MD 05/10/23
--- OUTSIDE RECORDS SUMMARY | 2024-05-03 20:21 | XMS_ITS | Clinical Summary ---
Author Organization [facility] Address [address] [address] [place] [phone] Phone Care Team Providers Care Wine Maker Name Role Phone Unavailable Primary Care Provider Unavailabl e Medications semaglutide, weight loss, (Wegovy) 0.25 mg/0.5 mL Pen Injector Inject 0.5 mL (0.25 mg total) under the skin every 7 days 2 mL 07/12/2023 4:40 PM CDT 07/11/2023 Active semaglutide, weight loss, (Wegovy) 0.5 mg/0.5 mL Pen Injector Inject 0.5 mL (0.5 mg total) under the skin every 7 days 2 mL 1 08/03/2023 5:39 PM CDT 08/03/2023 Active Encounters Date Type Department Care Team Description 05/01/2024 External Device Data [facility] Provider, Abstract 04/30/2024 External Device Data [facility] Provider, Abstract from Last 3 Months Social History Tobacco Use Types Packs/Day Years Used Date Smoking Tobacco: Never Assessed Comments Unknown Sex and Gender Information Value Date Recorded Sex Assigned at Not on file Legal Sex Female 3:28 PM CDT Gender Identity Not on file Sexual Orientation Not on file Plan of Treatment Health Maintenance Due Date Last Done Comments DTAP/TDAP/TD VACCINES (1 - Tdap) 2013 HEPATITIS B VACCINES (1 of 3 - 19+ 3-dose series) 2013 CERVICAL CANCER SCREENING 07/28/2015 INFLUENZA VACCINE (#1) 2023 HPV VACCINES Aged Out No longer eligi ble based on patient's age to complete this topic PNEUMOCOCCAL VACCINE 0-64 YEARS Aged Out No longer eligible based on patient's age to complete this topic Insurance RX [employer] Member Subscriber Plan / Payer (Ef fective 2023-Present) Name:Nikki Reddy Relation to Subscriber:Self Name:Nikki Reddy Subscriber ID:Not on file Payer ID:Not on file Group ID:[id number] Type:RX Commercial Address: [place]
--- OUTSIDE RECORDS SUMMARY | 2024-05-03 20:21 | XMS_ITS | Patient Health Summary ---
Author Organization [facility] Active[employer] Address [address] [place] [address] Care Team Providers Care Hotel Baggage Handler Name Role Phone Hazel Foley RONN-MARKETING REPORTING ANALYST Primary Care Provider [phone] Note from [facility],non-owned Affiliates and Associated Physician Practices is amultiple site organization consisting of ambulatory clinics and hospital sitesin [place], [place], [place] and [place]. This disclosure is being madepursuant to the Care Everywhere program and may not contain all information available regarding this patient. Last updated 17.[facility] Allergies No known active allergies Medications * Be aware that medications may not be up to date on this document. Alwaysverify current medications with the patient. * Vit-DSS-Fe Fum-FA ( vitamin with iron) tablet Take 1 (one) tablet by mouth once daily * busPIRone (Buspar) 7.5 MG tablet TAKE 1 TABLET BY MOUTH TWICE DAILY AND 1 TABLET NEEDED FOR ANXIETY * escitalopram (Lexapro) 10 MG tablet(Started 10/04/2023) Take 1 (one) tablet by mouth once daily * ondansetron, disintegrating, (Zofran ODT) 4 MG tablet(Started 01/01/2024) Take 2 (two) tablets by mouth every 8 hours as needed * semaglutide (Wegovy) 1.7 MG/0.75ML pen(Started 01/29/2024) Inject 1.7 mg subcutaneously every 7 days * letrozole (Femara) 2.5 MG tablet(Started 02/23/2024) Take two tablets daily days 3-7 of your cycle 5 refills by 02/22/2025 Active Problems Problem Noted Date Diagnosed Date Irregular menses 12/19/2022 Postcoital bleeding 12/19/2022 Encounter for routine checki ng of intrauterine contraceptive device (IUD) 12/19/2022 Encounter for supervision of low-risk , antepartum 08/02/2022 Abdominal cramping affecting Immunizations * TDAP (7yrs+)(Given 05/16/2022) Social History Tobacco Use Types Packs/Day Years [...] Date Recorded PHQ2 TOTAL SCORE 0 10/19/2022 [facility] - Occupational Stress [...] place to sleep or slept in a long term (including now)? No 08/02/2022 [place] Depression Scale Answer Date Recorded [place] Depression Scale Total 1 08/04/2022 The thought [...] Mass Index 27.12 02/05/2024 11:05 AM CDT Procedures * SONOGRAM - TRANSVAGINAL(Performed 04/11/2024) Performed for Encounter for imaging to assess myocardial viability * HCG BETA BLOOD QUANTITATIVE(Performed 03/25/2024) Performed for Missed menses * HCG BETA BLOOD QUANTITATIVE(Performed 03/19/2024) Performed for Positive urine test (HCC) * AR REMOVE INTRAUTERINE DEVICE(Performed 02/05/2024) Performed for Encounter for IUD removal * CULTURE URINE(Performed 03/21/2023) Performed for Dysuria * AR SONO EXAM, TRANSVAGINAL(Performed 01/09/2023) Performed for Irregular menses * IMAGING/RADIOLOGY/XRAY RESULTS ORDER(Performed 01/09/2023) * AR SONO EXAM, TRANSVAGINAL(Performed 09/28/2022) Performed for Encounter for routine checking of intrauterine contraceptive device (IUD) * HCG URINE QUALITATIVE - POINT OF CARE (AMB)(Performed 09/28/2022) Performed for Encounter for insertion of intrauterine contraceptive device (IUD) * IMAGING/RADIOLOGY/XRAY RESULTS ORDER(Performed 09/28/2022) * COMPREHENSIVE METABOLIC PANEL(Performed 08/04/2022) * CBC W AUTO DIFFERENTIAL(Performed 08/04/2022) * BLOOD GASES CORD CONNOR (ISTAT)(Performed 08/03/2022) * BLOOD GASES CORD ART (ISTAT)(Performed 08/03/2022) * NEURAXIAL BLOCK(Performed 08/02/2022) * BLOOD TYPE VERIFICATION(Performed 08/02/2022) * TYPE + SCREEN PANEL(Performed 08/02/2022) * SYPHILIS ANTIBODY CASCADING REFLEX(Performed 08/02/2022) * CBC W AUTO DIFFERENTIAL(Performed 08/02/2022) * URINALYSIS - POINT OF CARE (AMB) [facility](Performed 07/25/2022) Performed for Third trimester ([facility]) * URINALYSIS - POINT OF CARE (AMB) [facility](Performed 07/18/2022) Performed for Supervision of normal first in third trimester ([facility]) * CULTURE STREP B(Performed 07/11/2022) Performed for Normal , third trimester ([facility]) * AR SONO FU OR REPEAT(Performed 07/11/2022) Performed for Supervision of normal first in third trimester ([facility]), Low weight gain, antepartum, third trimester ([facility]), Encounter for ultrasound to assess growth ([facility]), Maternal obesity, antepartum, third trimester ([facility]) * IMAGING/RADIOLOGY/XRAY RESULTS ORDER(Performed 07/11/2022) * URINALYSIS - POINT OF CARE (AMB) [facility](Performed 07/11/2022) Performed for Normal , third trimester ([facility]) * NON-STRESS TEST(Performed 07/04/2022) * URINE MICROSCOPIC ONLY REFLEX TO CULTURE(Performed 07/04/2022) Performed for Abdominal cramping affecting ([facility]) * URINALYSIS REFLEX MICROSCOPIC REFLEX CULTURE(Performed 07/04/2022) Performed for Abdominal cramping affecting ([facility]) * CULTURE URINE(Performed 07/04/2022) Performed for Abdominal cramping affecting ([facility]) * CULTURE URINE(Performed 06/28/2022) Performed for Supervision of normal first in third trimester ([facility]) * URINALYSIS - POINT OF CARE (AMB) [facility](Performed 06/27/2022) Performed for Supervision of normal first in third trimester ([facility]) * AR SONO FU OR REPEAT(Performed 06/13/2022) Performed for Low weight gain, antepartum, third trimester ([facility]), Encounter for ultrasound to assess growth ([facility]), Maternal obesity, antepartum, third trimester ([facility]) * IMAGING/RADIOLOGY/XRAY RESULTS ORDER(Performed 06/13/2022) * URINALYSIS - POINT OF CARE (AMB) [facility](Performed 06/13/2022) Performed for Supervision of normal first in third trimester ([facility]) * URINALYSIS - POINT OF CARE (AMB) [facility](Performed 05/30/2022) Performed for Supervision of normal first in third trimester ([facility]) * AR SONO FU OR REPEAT(Performed 05/16/2022) Performed for Low weight gain during in second trimester ([facility]), Obesity affecting in second trimester ([facility]), Encounter for ultrasound to assess growth ([facility]) * IMAGING/RADIOLOGY/XRAY RESULTS ORDER(Performed 05/16/2022) * HIV-1 HIV-2 ANTIBODY + HIV P24 AG PANEL(Performed 05/16/2022) Performed for Supervision of normal first in third trimester ([facility]) * TREPONEMA PALLIDUM POS REFLX RPR(Performed 05/16/2022) Performed for Supervision of normal first in third trimester ([facility]) * CBC W/O DIFFERENTIAL(Performed 05/16/2022) Performed for Supervision of normal first in third trimester ([facility]) * GTT 1 HR (50G) GESTATIONAL SCREEN(Performed 04/30/2022) Performed for 24 weeks gestation of ([facility]) * URINALYSIS - POINT OF CARE (AMB) [facility](Performed 04/18/2022) Performed for 24 weeks gestation of ([facility]) * AR ULTRASND,PREG UTERUS,IMAGE DOC(Performed 03/21/2022) Performed for Encounter for anatomic survey ([facility]), 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 ([facility]), Obesity affecting in second trimester ([facility]), BMI 34.0-34.9,adult * IMAGING/RADIOLOGY/XRAY RESULTS ORDER(Performed 03/21/2022) * URINALYSIS - POINT OF CARE (AMB) [facility](Performed 03/21/2022) Performed for 20 weeks gestation of ([facility]) * CULTURE URINE(Performed 03/09/2022) * URINALYSIS - POINT OF CARE (AMB) [facility](Performed 02/14/2022) Performed for 15 weeks gestation of ([facility]) * LAB RESULTS ORDER(Performed 02/02/2022) * URINALYSIS - POINT OF CARE (AMB) [facility](Performed 01/17/2022) Performed for 11 weeks gestation of ([facility]) * BLOOD TYPE ABO+ RH PANEL(Performed 12/25/2021) * ANTIBODY SCREEN(Performed 12/25/2021) * TREPONEMA PALLIDUM POS REFLX RPR(Performed 12/25/2021) * RUBELLA ANTIBODY IGG(Performed 12/25/2021) * HEPATITIS C AB W/RFLX TO HCV RNA QN PCR(Performed 12/25/2021) * HEPATITIS B SURFACE ANTIGEN W RFLX CONFIRMATION(Performed 12/25/2021) * CBC W AUTO DIFFERENTIAL(Performed 12/25/2021) * HIV-1 HIV-2 ANTIBODY + HIV P24 AG PANEL(Performed 12/25/2021) * C. TRACHOMATIS + N. GONORRHOEAE + TRICH IHSAN(Performed 12/20/2021) Performed for 6 weeks gestation of ([facility]) * AR ULTRASND,PREG UTER,TRANSVAGIN(Performed 12/20/2021) Performed for PCOS (polycystic ovarian syndrome), Maternal obesity, antepartum, first trimester ([facility]), Encounter for routine ultrasound ([facility]) * IMAGING/RADIOLOGY/XRAY RESULTS ORDER(Performed 12/20/2021) * URINALYSIS - POINT OF CARE (AMB) [facility](Performed 12/20/2021) Performed for 6 weeks gestation of ([facility]) * HCG BETA BLOOD QUANTITATIVE(Performed 12/11/2021) Performed for Early stage of ([facility]) * HCG BETA BLOOD QUANTITATIVE(Performed 12/09/2021) Performed for Early stage of ([facility]) * HCG BETA BLOOD QUANTITATIVE(Performed 11/26/2021) Performed for Low maternal serum human chorionic gonadotropin (hCG) * HCG BETA BLOOD QUANTITATIVE(Performed 11/24/2021) Performed for Early stage of (HCC) * AR SPERM WASHING FOR ARTIF INSEM(Performed 11/15/2021) Performed for Infertility associated with anovulation * AR ARTIF INSEMINATION,INTRA-UTERINE(Performed 11/15/2021) Performed for Infertility associated with anovulation * LIPID PROFILE(Performed 10/27/2021) Performed for PCO (polycystic ovaries) * GTT 2 HR (75G) NON GESTATIONAL(Performed 10/27/2021) Performed for PCO (polycystic ovaries) * PROLACTIN(Performed 10/27/2021) Performed for PCO (polycystic ovaries) * TSH(Performed 10/27/2021) Performed for PCO (polycystic ovaries) * HYDROXYPROGESTERONE 17- QUANT(Performed 10/27/2021) Performed for PCO (polycystic ovaries) * DHEA SULFATE(Performed 10/27/2021) Performed for PCO (polycystic ovaries) * TESTOSTERONE TOTAL(Performed 10/27/2021) Performed for PCO (polycystic ovaries) * VITAMIN D 25-HYDROXY(Performed 10/27/2021) Performed for PCO (polycystic ovaries) * HCG URINE QUALITATIVE - POINT OF CARE (AMB)(Performed 09/21/2021) Performed for PCOS (polycystic ovarian syndrome) * US SONOHYSTEROGRAM(Performed 09/21/2021) Performed for PCOS (polycystic ovarian syndrome) Results * SONOGRAM - TRANSVAGINAL (04/11/2024 8:20 AM RECORDING CLERK) Linked Results Indication ======== NOB History ====== OB History ? 2. Para 1 Maternal Assessment Physical Exam ??Height 168 cm, 5 ft 6 in. Weight 78 kg, 172 lb. Initial weight 78 kg, 172 lb. BMI 27.76 kg/m?. Initial BMI 27.76 kg/m?. Weight gain 0 ? kg, 0 lb Method ====== Transvaginal ultrasound. View: Sufficient ========= Pope . Number of embryos: 1 Dating ====== [...] in 3 weeks Coding ====== Procedures ? 53319: US Preg Uterus Transvaginal Flickme PACS Anatomical Region Laterality Modality Other 04/11/2024 8:20 AM RECORDING CLERK Emily Mukherjee MD [facility] ORDERABLES * (ABNORMAL) HCG BETA BLOOD QUANTITATIVE (03/25/2024 10:35 AM RECORDING CLERK) Only the most recent of6 resultswithin the time period is included. HCG Quant 522(H) mIU/mL [facility] Comment: Reference Range Non or premenopausal ?<5 Postmenopausal ? <10 Values from different assay methods may vary. The use of this assay to monitor or to diagnose patients with cancer or any condition unrelated to has not been cleared or approved by the FDA or the numerical control lathe operator of the assay. Test Performed at: [facility] ??[id number] DEE ARELLANO MD Blood BLOOD SPECIMEN / Unknown 03/25/2024 10:35 AM RECORDING CLERK 03/25/2024 10:37 AM RECORDING CLERK Emily Mukherjee MD LAB - CHEMISTRY ORD ERABLES [facility] [address] [place] [address] * AR REMOVE INTRAUTERINE DEVICE (02/05/2024 11:34 AM CDT) Narrative Emily Mukherjee MD - 02/05/2024 11:34 AM CDT Emily Mukherjee MD ? 02/05/2024 11:34 AM See note Emily Mukherjee MD PROCEDURE/MINOR SABRINA GICAL ORDERABLES * CULTURE URINE (03/21/2023 3:48 PM RECORDING CLERK) Only the most recent of4 resultswithin the time period is included. Culture [facility] Comment: ??CULTURE, URINE, ROUTINE ?Micro Number: ?[id number] ??Test Status: ? Final ??Specimen Source: ?? Urine, clean catch ??Specimen Quality: ??Adequate ??Result: ?Mixed genital cierra isolated. These superficial ? bacteria are not indicative of a urinary tract ? infection. No further organism identification is ? warranted on this specimen. If clinically ? indicated, recollect clean-catch, mid-stream ? urine and transfer immediately to Urine Culture ? Transport Tube. REPORT COMMENT: FASTING:NO Test Performed at: [facility] ??[id number] DEE ARELLANO MD Urine URINE SPECIMEN OBTAINED BY CLEAN CATCH PROCEDURE / Unknown 03/21/2023 3:48 PM RECORDING CLERK 03/21/2023 3:49 PM RECORDING CLERK Emily Mukherjee MD LAB - MICROBIOLOGY ORDERABLES [facility] [address] [place] [address] * AR SONO EXAM, TRANSVAGINAL (01/09/2023 9:05 AM CDT) Narrative Herbie Branham RDMS - 01/09/2023 9:05 AM CDT Herbie Branham RDMS ? 01/09/2023 ??9:05 AM Documentation in digisonics. Daphnie Pederson CLINICAL DOCUMENTATION DEVELOPER-MARKETING REPORTING ANALYST PROCEDURE/MINOR CROWDER RGICAL ORDERABLES * IMAGING RADIOLOGY XRAY RESULTS ORDER (01/09/2023) Only the most recent of7 resultswithin the time period is included. Anatomical Region Laterality Modality Other Narrative 01/09/2023 Ordered by an unspecified provider. Scanned Document IMAGING * AR SONO EXAM, TRANSVAGINAL (09/28/2022 11:34 AM CDT) Narrative Brittni Fallon RDMS - 09/28/2022 11:34 AM CDT Brittni Fallon RDMS ? 09/28/2022 11:35 AM Documentation in digisonics. Emily Mukherjee MD PROCEDURE/MINOR SABRINA GICAL ORDERABLES * HCG URINE QUALITATIVE - POINT OF CARE (AMB) (09/28/2022 10:55 AM CDT) Only the most recent of2 resultswithin the time period is included. HCG Qual Urine Negative Negative [facility] [address] QC Verified Yes Yes [facility] [address] Urine URINE / Unknown 09/28/2022 1 0:55 AM CDT Emily Mukherjee MD LAB - POINT OF CARE ORDERABLES [facility] [address] [place] [address], [facility] [phone] * (ABNORMAL) COMPREHENSIVE METABOLIC PANEL (08/04/2022 8:51 AM CDT) Glucose 87 70 - 105 mg/dL 08/04/2022 9:33 AM [facility] Sodium 139 136 - 145 mmol/L 08/04/2022 9:33 AM [facility] Potassium 3.6 3.5 - 5.1 mmol/L 08/04/2022 9:33 AM [facility] Chloride 111(H) 98 - 107 mmol/L 08/04/2022 9:33 AM [facility] CO2 18(L) 23 - 31 mmol/L 08/04/2022 9:33 AM [facility] Calcium 8.7 8.4 - 10.4 mg/dL 08/04/2022 9:33 AM [facility] Anion Gap 10 8 - 18 mmol/L 08/04/2022 9:33 AM [facility] BUN 5(L) 7 - 18.7 mg/dL 08/04/2022 9:33 AM [facility] Creatinine 0.62 0.57 - 1.11 mg/dL 08/04/2022 9:33 AM [facility] Alkaline Phosphatase 94 40 - 150 U/L 08/04/2022 9:33 AM [facility] ALT 8 0 - 61 U/L 08/04/2022 9:33 AM [facility] AST 17 5 - 34 U/L 08/04/2022 9:33 AM [facility] Protein Total 5.5(L) 6.4 - 8.3 gm/dL 08/04/2022 9:33 AM [facility] Albumin 2.8(L) 3.5 - 5.2 gm/dL 08/04/2022 9:33 AM [facility] Bilirubin Total 0.5 0.2 - 1.2 mg/dL 08/04/2022 9:33 AM [facility] eGFR by CKD-EPI >90 >=90 mL/min/1.7 3 m2 08/04/2022 9:33 AM [facility] Blood BLOOD SPECIMEN / Unknown Lab Venipuncture / Unknown 08/04/2022 8:51 AM CDT 08/04/2022 9:13 AM T Ani Hope MD LAB - CHEMISTRY ORDE RABLES [facility] Organization Address City/State/ZIP Co de Phone Number [facility] [address] [place] [address] * (ABNORMAL) CBC W AUTO DIFFERENTIAL (08/04/2022 3:23 AM CDT) Only the most recent of3 resultswithin the time period is included. WBC 17.6(H) 4.4 - 10.7 x10E9/L 08/04/2022 3:51 AM CDT [facility] WBC Corrected 08/04/2022 3:51 AM CDT [facility] RBC 3.70(L) 3.80 - 5.20 x10E12/L 08/04/2022 3:51 AM CDT [facility] Hemoglobin 10.3(L) 12.0 - 15.6 gm/dL 08/04/2022 3:51 AM CDT [facility] Hematocrit 31.5(L) 35.9 - 45.5 % 08/04/2022 3:51 AM CDT [facility] MCV 85.1 80.7 - 98.3 fl 08/04/2022 3:51 AM CDT [facility] MCH 27.8 26.7 - 34.0 pg 08/04/2022 3:51 AM CDT [facility] MCHC 32.7 30.8 - 35.9 gm/dL 08/04/2022 3:51 AM CDT [facility] Platelet Count 207 153 - 416 x10E9/L 08/04/2022 3:51 AM CDT [facility] RDW-CV 14.7 12.1 - 14.9 % 08/04/2022 3:51 AM CDT [facility] MPV 10.8 9.4 - 12.9 fl 08/04/2022 3:51 AM CDT [facility] Neutrophils % 76.1(H) 44.0 - 73.0 % 08/04/2022 3:51 AM CDT [facility] Lymphocytes % 13.3(L) 20.0 - 43.0 % 08/04/2022 3:51 AM CDT [facility] Monocytes % 9.2 5.0 - 13.0 % 08/04/2022 3:51 AM CDT [facility] Eosinophils % 0.4 0.0 - 6.0 % 08/04/2022 3:51 AM CDT [facility] Basophils % 0.3 0.0 - 2.0 % 08/04/2022 3:51 AM CDT [facility] Immature Granulocytes 0.7 0 - 1 % 08/04/2022 3:51 AM CDT [facility] Neutrophil Absolute 13.38(H) 2.01 - 7.14 x10E9/L 08/04/2022 3:51 AM CDT [facility] Lymphocytes Absolute 2.34 1.07 - 3.94 x10E9/L 08/04/2022 3:51 AM CDT [facility] Monocytes Absolute 1.62(H) 0.26 - 1.07 x10E9/L 08/04/2022 3:51 AM CDT [facility] Eosinophils Absolute 0.07 0 - 0.47 x10E9/L 08/04/2022 3:51 AM CDT [facility] Basophils Absolute 0.05 0 - 0.08 x10E9/L 08/04/2022 3:51 AM CDT [facility] Immature Granulocytes Absolute 0.12(H) 0.00 - 0.06 x10E9/L 08/04/2022 3:51 AM CDT [facility] nRBC Auto 0 /100 WBC 08/04/2022 3:51 AM CDT [facility] Blood BLOOD SPECIMEN / Unknown Lab Venipuncture / Unknown 08/04/2022 3:23 AM CDT 08/04/2022 3:42 AM CDT Daniel Arauz MD LAB - HEMATOLOGY ORD ERABLES [facility] [address] [place], [place] [id number] * (ABNORMAL) BLOOD GASES CORD CONNOR (ISTAT) (08/03/2022 9:54 AM CDT) pH Cord Venous POCT 7.23(L) 7.28 - 7.40 pH 08/03/2022 10:01 AM CDT [facility] pCO2 Cord Venous POCT 42.4 35 - 45 mm hg 08/03/2022 10:01 AM CDT [facility] pO2 Cord Venous POCT 33 22 - 33 mm hg 08/03/2022 10:01 AM [facility] HCO3 Cord Arterial POCT 17.6(L) 22 - 24 mmol/L 08/03/2022 10:01 AM [facility] BE Cord Venous POCT Calc -10(L) -6.4 - 1.6 mmol/L 08/03/2022 10:01 AM [facility] TCO2 Cord Venous POCT 19(L) 22 - 30 mmol/L 08/03/2022 10:01 AM [facility] O2 Saturation % Cord Venous Calc POCT 52 % 08/03/2022 10:01 AM [facility] Site CORD CONNOR 08/03/2022 10:01 AM [facility] Sample iSTAT CORD CONNOR 08/03/2022 10:01 AM [facility] Blood CORD BLOOD SPECIMEN / Unknown 08/03/2022 9:54 AM CDT 08/03/2022 10:01 AM T Daniel Arauz MD LAB - POINT OF CARE ORDERABLES [facility] [address] [place], [place] [id number] * (ABNORMAL) BLOOD GASES CORD ART (ISTAT) (08/03/2022 9:49 AM CDT) pH Cord Arterial POCT 7.08(L) 7.20 - 7.34 pH 08/03/2022 10:01 AM [facility] pCO2 Cord Arterial POCT 69.2(H) 45 - 55 mm hg 08/03/2022 10:01 AM [facility] pO2 Cord Arterial POCT 20 12 - 25 mm hg 08/03/2022 10:01 AM [facility] HCO3 Cord Arterial POCT 20.3(L) 22 - 24 mmol/L 08/03/2022 10:01 AM [facility] BE Cord Arterial POCT -11(L) -2.9 - 8.3 mmol/L 08/03/2022 10:01 AM [facility] TCO2 Cord Arterial POCT 22 mmol/L 08/03/2022 10:01 AM CDT [facility] O2 Saturation Cord Art % Calc POCT 17 % 08/03/2022 10:01 AM CDT [facility] Site CORD ART 08/03/2022 10:01 AM CDT [facility] Sample iSTAT CORD ART 08/03/2022 10:01 AM CDT [facility] Blood CORD BLOOD SPECIMEN / Unknown 08/03/2022 9:49 AM CDT 08/03/2022 10:01 AM CDT Daniel Arauz MD LAB - POINT OF CARE ORDERABLES [facility] [address] [place], [place] [id number] * EPIDURAL BLOCK PERF (08/02/2022 11:30 PM CDT) Narrative Dulce Maria Holland APRN-CRNA - 08/02/2022 11:30 PM CDT Dulce Maria Holland APRN-CRNA ? 08/02/2022 11:41 PM Neuraxial Block Note ?? Pre-Procedure: ?? Procedure Name: ??Neuraxial Block Patient Location: ??OB Indications: ??labor analgesia Pre-Anesthetic Checklist: ??Patient identified, IV Checked, Risks and benefits discussed, Surgical consent verified, Monitors and equipment, Site examined, Pre-op evaluation done, Time-out performed, Informed consent obtained, Questions answered/anesthesia questions answered and Allergies reviewed Anticoagulation/ Anti-thrombosis status confirmed? ??Yes Monitors: ??BP and continuous pluse ox Patient Condition: ??awake Patient Sedated? ??No Procedure: ?? Block Type: ??Epidural Prep: ??Betadine Sterile Field: ??mask, cap/hat, sterile established and sterile gloves Approach: ??midline Skin was localized? ??Yes Skin localized with: lidocaine (XYLOCAINE MPF) 1 % injection - Infiltration 1 mL - 08/02/2022 11:30:00 PM Epidural Block: ?? Is this procedure for postop pain? ??No Needle Type: ??Tuohy Needle gauge: ??18 G Needle length: ??90 mm Placement Site: ??L3-L4 Number of Attempts: ??1 Loss of Resistance: ??7 ?? air Catheter length at skin (cm): ??11 CSF Aspirated from catheter: ??No Blood Aspirated: ??No Test Dose: ??lidocaine 1.5% with 1-200,000 epinephrine ?? 5 ??mL at ?? 08/02/2022 11:33 PM Test Dose Response: ??No Epidural Infusion Medications: ? Ropivacaine: ??0.2% with Fentanyl 2mcg/mL in NS , ??at 12 mL/hr Degree of difficulty: ??none Procedure Tolerance: ??tolerated well Sensory Level: ??T7 Motor Blockade: ??Yes Position post procedure: ??left uterine displacement Vital Signs: ??Vital signs moniitored and stable throughout. ??See nursing vitals flowsheet for details. Start Time: ??08/02/2022 11:30 PM End Time: ??08/02/2022 11:33 PM Total Time: ??3 Staff: ?? Anesthesia Provider: ??Dulce Maria Holland APRN-QUICK MIXER OPERATOR ?? - ?? performed the procedure Dat Gage DO GENERAL ANESTHESIA O RDERABLES * BLOOD TYPE VERIFICATION (08/02/2022 9:42 AM CDT) ABO Rh A POS 08/02/2022 10:29 AM CDT [facility] Blood Bank BLOOD SPECIMEN / Unknown Venipuncture / Unknown 08/02/2022 9:42 AM CDT 08/02/2022 9:54 AM CDT Daniel Arauz MD LAB - BLOOD BANK ORD ERABLES [facility] [address] [phone] * SYPHILIS ANTIBODY CASCADING REFLEX (08/02/2022 8:42 AM CDT) Treponema pallidum Antibody Non Reactive Non Reactive 08/02/2022 10:29 AM CDT [facility] Comment: No Laboratory evidence of syphilis infection. ?? Note: ??Circulating antibodies may be low or undetectable in early infection. ??If recent exposure is suspected, re-draw sample in 2-4 weeks and repeat testing. Blood BLOOD SPECIMEN / Unknown Venipuncture / Unknown 08/02/2022 8:42 AM CDT 08/02/2022 9:21 AM CDT Daniel Arauz MD LAB - SEROLOGY ORDER NOHEMY Performing Organization Address [facility] Co de Phone Number [facility] [address] [place] [address] * TYPE + SCREEN PANEL (08/02/2022 8:42 AM CDT) ABO Rh A POS 08/02/2022 10:16 AM CDT [facility] Comment:No history; collect retype. Antibody Screen NEG 10:16 AM CDT [facility] Blood Bank BLOOD SPECIMEN / Unknown Venipuncture / Unknown 08/02/2022 8:42 AM CDT 08/02/2022 9:21 AM CDT Daniel Arauz MD LAB - BLOOD BANK ORD ERABLES Performing Organization Address [facility] Co de Phone Number [facility] BLOOD BANK LAB [address] [place] [address] * URINALYSIS - POINT OF CARE (AMB) [facility] (07/25/2022) Only the most recent of11 resultswithin the time period is included. Specific [place] UA 1.015 pH UA 7 WBC UA + Nitrite UA n Protein UA trace Glucose UA n Ketones UA POCT n Urobilinogen UA n Bilirubin UA POCT n Blood Urine POCT n Urine URINE / Unknown 07/25/2022 Emliy Mukherjee MD LAB - POINT OF CARE ORDERABLES * CULTURE STREP B (07/11/2022 3:51 PM CDT) Culture [facility] Comment: ??STREPTOCOCCUS, GROUP B CULTURE ?Micro Number: ?[id number] ??Test Status: ? Final ??Specimen Source: ?? Anorectum/va ??Specimen Quality: ??Adequate ??Result: ?No group B Streptococcus isolated ? Note per CDC guidelines optimal recovery is ? achieved by swabbing both the lower vagina and ? rectum (through the anal sphincter). Test Performed at: [facility] ??[phone] DEE ARELLANO MD Microbiology MISCELLANEOUS SAMPLES / Unknown 07/11/2022 3:51 PM CDT 07/12/2022 1:56 AM CDT Emily Mukherjee MD LAB - MICROBIOLOGY ORDERABLES Performing Organization Address [facility]/State/[facility] Co de Phone Number [address] [address] * AR SONO FU OR REPEAT (07/11/2022 3:12 PM CDT) Narrative Herbie Branham RDMS - 07/11/2022 3:12 PM CDT Herbie Branham RDMS ? 07/11/2022 ??3:12 PM Documentation in digisonics. Emily Mukherjee MD PROCEDURE/MINOR SABRINA GICAL ORDERABLES * NON-STRESS TEST (07/04/2022 10:34 PM CDT) Anatomical Region Laterality Modality Other Narrative 07/04/2022 10:34 PM CDT Jazmin Wahl MD ? 07/05/2022 ??1:31 AM Name: ??Nikki Christine Reddy Date of : ??1995 Today's Date: ??07/04/2022 35w2d ?NST RESULTS (POPE) OBJECTIVE FINDINGS Temp: 98.4 ??F (36.9 ??C), ??, Resp: 18, BP: 130/81 NST Indication(s): labor Uterine Irritability: No Contractions: Not present OBJECTIVE FINDINGS Movement: Present Monitoring Mode: External Baseline: 130 BPM Variability: Moderate Decelerations: None Accelerations: Yes OTHER INFORMATION Carin Hernandez RN Non-Stress Test [facility] Patient Name: Nikki Reddy LMP: Patient's last menstrual period was 09/14/2021. Gestational Age: 35w3d as of 07/05/2022 Estimated Date of Delivery: 08/06/22 Indications: Abdominal pain in NST date: 07/05/2022 NST duration: >20 mins Interpretation: Baseline: ??130 beats/minute moderate variability ?Reactive ?Contractions: ??none ?Decelerations: ??none Impression and Plan: FWB reassuring, continue monitoring as scheduled. Jazmin Wahl MD 07/05/2022 1:30 AM Cindy Jesus MD [facility] ORDERABLES * (ABNORMAL) URINE MICROSCOPIC ONLY REFLEX TO CULTURE (07/04/2022 10:12 PM CDT) Reflex Status Culture to follow 07/04/2022 10:34 PM CDT [facility] RBC UA 3-5 0 - 5 # /hpf 07/04/2022 10:34 PM CDT [facility] WBC UA 6-10(A) 0 - 5 # /hpf 07/04/2022 10:34 PM CDT [facility] Bacteria UA Trace(A) None Seen 07/04/2022 10:34 PM CDT [facility] Squamous Epithelial Cells >20(A) 0 - 5 /hpf 07/04/2022 10:34 PM CDT [facility] Mucus UA 1+ /LPF 07/04/2022 10:34 PM CDT [facility] Urine URINE SPECIMEN OBTAINED BY CLEAN CATCH PROCEDURE / Unknown Collection / Unknown 07/04/2022 10:12 PM CDT 07/04/2022 10:19 PM CDT Narrative [facility] - 07/04/2022 10:34 PM CDT Adrienne Leo MD LAB - URINALYSIS OR DERABLES Performing Organization Address City/[facility]/ZIP Co de Phone Number [facility] [address] [place] [address] * (ABNORMAL) URINALYSIS REFLEX MICROSCOPIC REFLEX CULTURE (07/04/2022 10:12 PM CDT) Color UA Kamila(A) Straw, Yellow 07/04/2022 10:26 PM CDT [facility] Clarity UA Cloudy(A) Clear 07/04/2022 10:26 PM CDT [facility] Glucose UA Negative Negative 07/04/2022 10:26 PM CDT [facility] Bilirubin UA Negative Negative 07/04/2022 10:26 PM CDT [facility] Ketone UA 1+(A) Negative 07/04/2022 10:26 PM CDT [facility] Specific [place] UA 1.019 1.005 - 1.030 07/04/2022 10:26 PM CDT [facility] Blood UA Negative Negative 07/04/2022 10:26 PM CDT [facility] pH UA 6.0 5.0 - 8.0 pH 07/04/2022 10:26 PM CDT [facility] Protein UA Negative Negative 07/04/2022 10:26 PM CDT [facility] Urobilinogen UA Negative Negative mg/dL 07/04/2022 10:26 PM CDT [facility] Nitrite UA Negative Negative 07/04/2022 10:26 PM CDT [facility] Leukocyte UA 3+(A) Negative 07/04/2022 10:26 PM CDT [facility] Urine Microscopy Urine microscopy to follow 07/04/2022 10:26 PM CDT [facility] Reflex Status Culture to follow 07/04/2022 10:26 PM CDT [facility] Urine URINE SPECIMEN OBTAINED BY CLEAN CATCH PROCEDURE / Unknown Collection / Unknown 07/04/2022 10:12 PM CDT 07/04/2022 10:19 PM CDT Narrative [facility] - 07/04/2022 10:26 PM CDT Adrienne Leo MD LAB - URINALYSIS OR DERABLES [facility] [address] [place] [address] * AR SONO FU OR REPEAT (06/13/2022 3:16 PM RECORDING CLERK) Narrative Vasyl Brittni ChipVIOLETTE - 06/13/2022 3:16 PM RECORDING CLERK Brittni FallonVIOLETTE ? 06/13/2022 ??3:16 PM Documentation in digisonics. Emily Mukherjee MD PROCEDURE/MINOR SABRINA GICAL ORDERABLES * AR SONO FU OR REPEAT (05/16/2022 3:02 PM RECORDING CLERK) Narrative Herbie Branham RDMS - 05/16/2022 3:02 PM RECORDING CLERK Herbie Branham RDMS ? 05/16/2022 ??3:03 PM Documentation in digisonics. Emily Mukherjee MD PROCEDURE/MINOR SABRINA GICAL ORDERABLES * HIV-1 HIV-2 ANTIBODY + HIV P24 AG PANEL (05/16/2022) Only the most recent of2 resultswithin the time period is included. [facility] HIV Screen 4th Generation w Reflex NON-REACT [...] ?? For additional information please refer to http://education.FullStory.Corent Technology/faq/GQU161 (This link is being provided for informational/ educational purposes only.) The performance of this assay has not been clinically validated in patients less than 2 years old. Test Performed at: [facility] [id number] [place] [address] ??[phone] DEE ARELLANO MD Blood BLOOD SPECIMEN / Unknown 05/16/2022 05/16/2022 3:17 PM RECORDING CLERK Emily Mukherjee MD LAB - CHEMISTRY ORD ACNA Performing Organization Address [facility]/ZIP Co de Phone Number [facility] [address] [place] [address] * TREPONEMA PALLIDUM POS REFLX RPR (05/16/2022) Only the most recent of2 resultswithin the time period is included. Pathologist [facility] Treponema pallidum Antibody EIA NEGATIVE NEGATIVE [facility] Comment: No antibodies to T. pallidum (the agent causing syphilis) were detected in the specimen. This result, however, does not exclude very recent T. pallidum infection; testing of a second specimen, collected 2-4 weeks after this specimen, is recommended if the index of suspicion for recent infection is high. REPORT COMMENT: FASTING:NO Test Performed at: [facility] [address] ??[phone] IZZY Griffiths NESTOR Blood BLOOD SPECIMEN / Unknown 05/16/2022 05/16/2022 3:17 PM RECORDING CLERK Emily Mukherjee MD LAB - SEROLOGY JESSICA LOPEZ Performing Organization Address City/[facility]/ZIP Co de Phone Number [facility] [address] [place] [address] * (ABNORMAL) CBC W/O DIFFERENTIAL (05/16/2022) Pathologist [facility] White Blood Cell Count 13.1(H) 3.8 - 10.8 Thousand/u L [facility] RBC 4.38 3.80 - 5.10 Million/uL [facility] Hemoglobin 12.1 11.7 - 15.5 g/dL [facility] Hematocrit 36.8 35.0 - 45.0 % [facility] MCV 84.0 80.0 - 100.0 fL [facility] MCH 27.6 27.0 - 33.0 pg [facility] MCHC 32.9 32.0 - 36.0 g/dL [facility] RDW 13.8 11.0 - 15.0 % [facility] Platelet Count 343 140 - 400 Thousand/u L [facility] MPV 10.6 7.5 - 12.5 fL [facility] Comment: Test Performed at: [facility] [id number] [address] [place] ??[phone] DEE ARELLANO MD Blood BLOOD SPECIMEN / Unknown 05/16/2022 05/16/2022 3:17 PM RECORDING CLERK Emily Mukherjee MD LAB - HEMATOLOGY OR DERABLES Performing Organization Address [facility] Co de Phone Number [facility] [address] [place] [address] * GTT 1 HR (50G) GESTATIONAL SCREEN (04/30/2022 8:04 AM RECORDING CLERK) Glucose Gestational Screen 128 <140 mg/dL [facility] Comment: REPORT COMMENT: FASTING:YES Test Performed at: [facility] ??[phone] JENNIFER AMOR DO,MPH Blood BLOOD SPECIMEN / Unknown 04/30/2022 8:04 AM RECORDING CLERK 04/30/2022 8:10 AM RECORDING CLERK Emily Mukherjee MD LAB - CHEMISTRY ORD ERABLES Performing Organization Address [facility] Co de Phone Number [phone] [place] [address] * AR ULTRASND,PREG UTERUS,IMAGE DOC (03/21/2022 3:39 PM RECORDING CLERK) Narrative Camelia Montes - 03/21/2022 3:39 PM RECORDING CLERK Camelia Montes ? 03/21/2022 ??3:39 PM Documentation in digisonics. Emily Mukherjee MD PROCEDURE/MINOR SABRINA GICAL ORDERABLES * LAB RESULTS ORDER (02/02/2022) 02/02/2022 Narrative 02/02/2022 Ordered by an unspecified provider. Scanned Document LAB - THERAPEUTIC DR LYNN MONITORING ORDERABLES * HEPATITIS C AB W/RFLX TO HCV RNA QN PCR (12/25/2021 12:34 PM CDT) Hepatitis C Antibody NON-REACTI VE NON-REACT DALIA [facility] Signal to Cut-Off 0.01 <1.00 [facility] Comment: HCV antibody was non-reactive. There is no laboratory evidence of HCV infection. In most cases, no further action is required. However, if recent HCV exposure is suspected, a test for HCV RNA (test code 36591) is suggested. For additional information please refer to http://education.RevoDeals/faq/GUI74z7 (This link is being provided for informational/ educational purposes only.) Test Performed at: [facility] [address] [place], [place] ??[address] JENNIFER AMOR DO,MPH 12/25/2021 12:3 4 PM CDT 12/25/2021 12:39 PM CDT Emily Mukherjee MD LAB - CHEMISTRY ORD ANCA Performing Organization Address [facility] de Phone Number [facility] [address] [place] [address] * RUBELLA ANTIBODY IGG (12/25/2021 12:34 PM CDT) Rubella Antibody 2.43 Index [facility] Comment: ?Index ?Interpretation ?----- ?<0.90 ?Not consistent with immunity ?0.90-0.99 ?Equivocal ?> or = 1.00 ?Consistent with immunity The presence of rubella IgG antibody suggests immunization or past or current infection with rubella virus. Test Performed at: [facility] [address] [place], [place] ??[phone] JENNIFER AMOR DO,MPH 12/25/2021 12:3 4 PM CDT 12/25/2021 12:39 PM CDT Emily Mukherjee MD LAB - SEROLOGY ORDYazan LOPEZ Performing Organization Address [facility] de Phone Number [facility] [address] [place] [address] * BLOOD TYPE ABO+ RH PANEL (12/25/2021 12:34 PM CDT) [facility] ABO A [facility] Rh Type RH(D) POSITIVE [facility] Comment: For additional information, please refer to http://education.LineMetrics/faq/SLS915 (This link is being provided for informational/ educational purposes only.) REPORT COMMENT: VARIFIED ALL INFO FASTING:NO PATIENT UNABLE TO VOID; ADVISED TO RETURN FOR COL Test Performed at: [facility] [address] [place] [address] ??[phone] JENNIFER AMOR DO,MPH 12/25/2021 12:3 4 PM CDT 12/25/2021 12:39 PM CDT Emily Mukherjee MD LAB - BLOOD BANK OR DERABLES Performing Organization Address [facility] de Phone Number [facility] [address] [place] [address] * ANTIBODY SCREEN (12/25/2021 12:34 PM CDT) [facility] Antibody Screen NO ANTIBODIES DETECTED [facility] Comment: ?Reference range ?No antibodies detected This assay is a screening test for the detection of red blood cell antibodies. The test is not to be used for pretransfusion screening or for the medical management of an alloimmunized . ? Test Performed at: [facility] ??[phone] JENNIFER AMOR DO,MPH 12/25/2021 12:3 4 PM CDT 12/25/2021 12:39 PM CDT Emily Mukherjee MD LAB - BLOOD BANK OR DERABLES Performing Organization Address [facility] de Phone Number [facility] [address] [place] [address] * HEPATITIS B SURFACE ANTIGEN W RFLX CONFIRMATION (12/25/2021 12:34 PM CDT) [facility] Hepatitis B Virus Surface Antigen NON-REACT DALIA NON-REACT DALIA [facility] Comment: Test Performed at: [facility] [place], [place] ??[address] JENNIFER AMOR DO,MPH Confirmation [facility] Comment: Test Performed at: [facility] [address] [place], [place] ??[address] JENNIFER AMOR DO,MPH 12/25/2021 12:3 4 PM CDT 12/25/2021 12:39 PM CDT Emily Mukherjee MD LAB - CHEMISTRY ORD ERABLES [facility] [address] [place] [address] * C. TRACHOMATIS + N. GONORRHOEAE + TRICH IHSAN (12/20/2021 4:34 PM CDT) Chlamydia Trachomatis IHSAN Not detected Not detected 12/22/2021 4:09 PM CDT [facility] Neisseria Gonorrhoeae IHSAN Not detected Not detected 12/22/2021 4:09 PM CDT [facility] Trichomonas Vaginalis IHSAN Not detected Not detected 12/22/2021 4:09 PM CDT [facility] Microbiology VAGINA AND CERVIX, CS / Unknown Collection / Unknown 12/20/2021 4:34 PM CDT 12/21/2021 12:41 PM CDT Narrative [facility] - 12/22/2021 4:09 PM CDT This analysis was performed using Gen-Probe Aptima Combo 2 and Gen-Probe Aptima Assay. These methodologies are U.S. FDA approved for Chlamydia trachomatis, Neisseria gonorrhoeae testing for urine and urogenital swabs from men and women, and cervical cells submitted in ThinPrep vials. Performance characteristics of testing for Trichomonas vaginalis on specimens using the Gen-Probe Aptima Trichomonas vaginalis Assay on the ViSSee system and rectal and pharyngeal swabs with Gen-Probe Aptima combo 2 were determined by the [facility] at [facility]. ??They have not been cleared or approved by the U.S Food and Drug Administration (FDA). ??The FDA has determined that such clearance approval is not necessary. ??This test is used for clinical purposes and should not be regarded as investigational or for research. ??This laboratory is certified under the Clinical Laboratory Improvements Amendments of 1988 (CLIA 1988), as qualified to perform high complexity laboratory testing. Emily Mukherjee MD LAB - MICROBIOLOGY ORDERABLES [facility] [address] [place] [address], [facility] [phone] * AR ULTRASND,PREG UTER,TRANSVAGIN (12/20/2021 2:57 PM CDT) Narrative Brittni Fallon RDMS - 12/20/2021 2:57 PM CDT Brittni Fallon RDMS ? 12/20/2021 ??2:58 PM Documentation in digisonics. Emily Mukherjee MD PROCEDURE/MINOR SABRINA GICAL ORDERABLES * AR ARTIF INSEMINATION,INTRA-UTERINE, AR SPERM WASHING FOR ARTIF INSEM (11/15/2021 8:29 AM CDT) Narrative Emily Mukherjee MD - 11/15/2021 8:29 AM CDT Emily Mukherjee MD ? 11/15/2021 ??8:31 AM Patient here for IUI. Informed Consent was obtained. Wash was performed here in the office. Speculum was introduced and the IUI catheter was placed into the uterine cavity and the washed specimen was slowly introduced. Speculum removed. Patient tolerated the procedure well. See IUI flowsheet for details. TNTC total motile inseminated Emily Mukherjee MD PROCEDURE/MINOR SABRINA GICAL ORDERABLES * HYDROXYPROGESTERONE 17- QUANT (10/27/2021 7:46 AM CDT) 17-Hydroxyproges terone LC/MS/MS 29 ng/dL [facility] Comment: Adult Female Reference Ranges for 17-Hydroxyprogesterone: ??Pre-Menopausal Mid Follicular: ??23-102 ng/dL ??Pre-Menopausal Surge: ? 67-349 ng/dL ??Pre-Menopausal Mid Luteal: ? 139-431 ng/dL ??Postmenopausal Phase: ?< or = 45 ng/dL : ?? First Trimester: ??78-457 ng/dL ?? Second Trimester: 90-357 ng/dL ?? Third Trimester: 144-578 ng/dL This test was developed and its analytical performance characteristics have been determined by [facility]. It has not been cleared or approved by FDA. This assay has been validated pursuant to the CLIA regulations and is used for clinical purposes. Test Performed at: [facility] [address] [place], [place] ??[address] AMANUEL CARRANZA MD,PHD,TITI Blood BLOOD SPECIMEN / Unknown 10/27/2021 7:46 AM CDT 10/27/2021 7:48 AM CDT Emily Mukherjee MD LAB - CHEMISTRY ORD ERABLES Performing Organization Address City/State/[facility] Co de Phone Number [facility] [address] [place] [address] * GTT 2 HR (75G) NON GESTATIONAL (10/27/2021 7:46 AM CDT) Fasting Specimen 92 65 - 99 mg/dL [facility] 2 Hour Specimen 108 <140 mg/dL [facility] See Below [facility] Comment: [place] Diabetes Association Diagnostic Criteria for Diabetes Mellitus ?Glucose Value (mg/dL) Interpretation ?Fasting ?2 hr Tolerance ?------- ? Normal ?<100 ? <140 Impaired Fasting ?100-125 Impaired Tolerance ? 140-199 Diabetes ? > or =126* ? > or =200* * Must be confirmed by testing on a subsequent day. Test Performed at: [facility] [place] [address] [place], [place] ??[phone] JENNIFER AMOR DO,MPH Blood BLOOD SPECIMEN / Unknown 10/27/2021 7:46 AM CDT 10/27/2021 7:48 AM CDT Emily Mukherjee MD LAB - CHEMISTRY ORD ERABLES Performing Organization Address [facility] de Phone Number [facility] [phone] [place] [address] * DHEA SULFATE (10/27/2021 7:46 AM CDT) Dehydroepiandrosterone Sulfate (DHEAS) 282 14 - 349 mcg/dL [facility] Comment: Test Performed at: [facility] [place] [address] [place], [place] ??[address] JENNIFER AMOR DO,MPH Blood BLOOD SPECIMEN / Unknown 10/27/2021 7:46 AM CDT 10/27/2021 7:48 AM CDT Emily Mukherjee MD LAB - CHEMISTRY ORD ERABLES Performing Organization Address [facility] de Phone Number [facility] [phone] [place] [address] * TESTOSTERONE TOTAL (10/27/2021 7:46 AM CDT) Pathologist [facility] Testosterone Total MS 38 2 - 45 ng/dL [facility] Comment: For additional information, please refer to https://education.FullStory.Corent Technology/faq/TotalTestosteroneLCMSMS (This link is being provided for informational/educational purposes only.) (Note) This test was developed and its analytical performance characteristics have been determined by [facility]. It has not been cleared or approved by the FDA. This assay has been validated pursuant to the CLIA regulations and is used for clinical purposes. [facility] [address] [address],[address] [facility] [address] Emily Hooks MD REPORT COMMENT: FASTING:YES Test Performed at: [facility] [address] [address] [address] [place], [place] ??[phone] EMILY HOOKS MD Blood BLOOD SPECIMEN / Unknown 10/27/2021 7:46 AM CDT 10/27/2021 7:48 AM CDT Emily Mukherjee MD LAB - CHEMISTRY ORD KnowledgeTreeBLES Performing Organization Address [facility] Phone Number [facility] [address] [place] [address] * PROLACTIN (10/27/2021 7:46 AM CDT) Pathologist [facility] Prolactin 8.1 ng/mL [facility] Comment: ?Reference Range Females ?Non- ?3.0-30.0 ? 10.0-209.0 ?Postmenopausal ?2.0-20.0 ? Test Performed at: [facility] ??[phone] JENNIFER AMOR DO,MPH Blood BLOOD SPECIMEN / Unknown 10/27/2021 7:46 AM CDT 10/27/2021 7:48 AM CDT Emily Mukherjee MD LAB - CHEMISTRY ORD KnowledgeTreeBLES Performing Organization Address [facility] Phone Number [facility] [address] [place] [address] * (ABNORMAL) VITAMIN D 25-HYDROXY (10/27/2021 7:46 AM CDT) Pathologist [facility] Vitamin D, 25 Hydroxy 22(L) 30 - 100 ng/mL [facility] Comment: Vitamin D Status ? 25-OH Vitamin D: Deficiency: ?<20 ng/mL Insufficiency: ? 20 - 29 ng/mL Optimal: ? > or = 30 ng/mL For 25-OH Vitamin D testing on patients on D2-supplementation and patients for whom quantitation of D2 and D3 fractions is required, the QuestAssureD(TM) 25-OH VIT D, (D2,D3), LC/MS/MS is recommended: order code 24287 (patients >2yrs). See Note 1 Note 1 For additional information, please refer to http://education.LineMetrics/faq/LTR503 (This link is being provided for informational/ educational purposes only.) Test Performed at: [facility] [address] [place], [place] ??[phone] JENNIFER AMOR DO,MPH Blood BLOOD SPECIMEN / Unknown 10/27/2021 7:46 AM CDT 10/27/2021 7:48 AM CDT Emily Mukherjee MD LAB - CHEMISTRY ORD ERABLES Performing Organization Address [facility] Phone Number [facility] [address] [place] [phone] * TSH (10/27/2021 7:46 AM CDT) TSH 2.01 mIU/L [facility] Comment: ?Reference Range ?> or = 20 Years ??0.40-4.50 ? Ranges ?First trimester ?0.26-2.66 ?Second trimester ?? 0.55-2.73 ?Third trimester ?0.43-2.91 Test Performed at: [facility] [address] [place], [place] ??[address] JENNIFER AMOR DO,MPH Blood BLOOD SPECIMEN / Unknown 10/27/2021 7:46 AM CDT 10/27/2021 7:48 AM CDT Emily Mukherjee MD LAB - CHEMISTRY ORD ERABLES Performing Organization Address [facility] Co de Phone Number [facility] [address] [place] [phone] * (ABNORMAL) LIPID PROFILE (10/27/2021 7:46 AM CDT) Cholesterol 165 <200 mg/dL [facility] HDL Cholesterol 50 > OR = 50 mg/dL [facility] Triglycerides 205(H) <150 mg/dL [facility] Comment: If a non-fasting specimen was collected, consider repeat triglyceride testing on a fasting specimen if clinically indicated. Luca et al. J. of Clin. Lipidol. 2015;9:129-169. LDL Calculated 85 mg/dL (calc) [facility] Comment: Reference range: <100 Desirable range <100 mg/dL for primary prevention; ?? <70 mg/dL for patients with CHD or diabetic patients with > or = 2 CHD risk factors. LDL-C is now calculated using the Sandor-Carla calculation, which is a validated novel method providing better accuracy than the Friedewald equation in the estimation of LDL-C. Sandor SS et al. SHAUNA. 2013;310(19): 2529-5291 (http://education.LineMetrics/faq/AXT749) CHOL/HDLC RATIO 3.3 <5.0 (calc) [facility] Non HDL Cholesterol 115 <130 mg/dL (calc) [facility] Comment: For patients with diabetes plus 1 major ASCVD risk factor, treating to a non-HDL-C goal of <100 mg/dL (LDL-C of <70 mg/dL) is considered a therapeutic option. Test Performed at: [facility] [address] [place] [address] ??[phone] JENNIFER AMOR DO,MPH Blood BLOOD SPECIMEN / Unknown 10/27/2021 7:46 AM CDT 10/27/2021 7:48 AM CDT Emily Mukherjee MD LAB - CHEMISTRY ORD ERABLES Performing Organization Address [facility] Co de Phone Number [facility] [address] [place] [address] * US SONOHYSTEROGRAM (09/21/2021) Anatomical Region Laterality Modality Pelvis, Abdomen Ultrasound Narrative 09/21/2021 Tabby Roberts MD ? 09/21/2021 ??2:35 PM See digi Procedure Note Tabby Roberts MD - 09/21/2021 2:34 PM CDT See digi Tabby Roberts MD [facility] Care Teams Hotel Baggage Handler Relationship Specialty Start Date End Date Hazel Foley, CLINICAL DOCUMENTATION DEVELOPER-MARKETING REPORTING ANALYST [address] [place] [address] PCP - General Nurse Practitioner Family 02/05/24
--- OUTSIDE RECORDS SUMMARY | 2024-05-03 20:21 | XMS_ITS | Encounter Summary ---
Author Organization [facility] Address [address] [place] [address] Care Team Providers Care Ferryboat Ticket Taker Name Role Phone Unavailable Primary Care Provider Unavailabl e Encounter Details Date Type Department Care Team (Late st Contact Info) Description 05/01/2024 External Device Data [facility] ABSTRACTION Provider, Abstract NO ADDRESS ON FILE Social History Tobacco Use Types Packs/Day Years Used Date Smoking Tobacco: Never Assessed Comments Unknown Sex and Gender Information Value Date Recorded Sex Assigned at Not on file Legal Sex Female 3:28 PM CDT Gender Identity Not on file Sexual Orientation Not on file documented as of this encounter Plan of Treatment Not on file documented as of this encounter Visit Diagnoses Not on filedocumented in this encounter
--- OUTSIDE RECORDS SUMMARY | 2024-05-03 20:21 | XMS_ITS | Encounter Summary ---
Author Organization [facility] Address [address] [place] [address] Care Team Providers Care Wool Tamper Name Role Phone Lexx Varma MD Primary Care Provider [phone] Hazel Foley Primary Care Provider [phone] Reason for Visit * Reason Onset Date Comments Concerns 12/21/2022 Encounter Details Date Type Department Care Team (Late st Contact Info) Description 12/21/2022 Telephone [facility] - GEOPHYSICAL PROSPECTING PERMIT AGENT [address] [place] [address] Daphnie Pederson APRN-CNP [address] [place] [address] Concerns Social History Tobacco Use Types Packs/Day Years Used Date Smoking Tobacco: Never Smokeless Tobacco: Never Alcohol Use Standard Drinks/Week Comments Never 0 [...] Date Recorded PHQ2 TOTAL SCORE 0 10/19/2022 [facility] - Occupational Stress Questionnaire Answer Date Recorded [...] money to buy more. Never true 08/03/19 23 Within the past 12 months, t he [...] place to sleep or slept in a fci (including now)? No 08/02/2022 Bradford Depression Scale Answer Date Recorded Bradford Depression Scale Total 1 08/04/2022 The thought of harming myself has occurred to me . Never 08/04/2022 Sex and Gender Information Value Date Recorded Sex Assigned at Not on file Gender Identity Not on file Sexual Orientation Straight 11/23/2020 11 :24 AM CDT documented as of this encounter Functional Status Functional Status Response Date of [...] person have difficulty concentrating/remembering/making decisions? No 08/02/2022 documented as of this encounter Miscellaneous Notes * Telephone Encounter - Camelia Paredes RN - 12/21/2022 10:14 AM CDT RN returned call to [facility] main lab. They received the patients sureswab but should have went to [facility]. They cannot run this lab there with the swab it was collected on. RN will make CAN FILLER aware * Telephone Encounter - Claribel Land - 12/21/2022 9:55 AM CDT Caryn from [facility] lab called because patient swap test for BV was sent to there main lab it was suppose to go straight to [facility] they would like to know next steps. Thank You Claribel [phone] documented in this encounter Plan of Treatment Upcoming Encounters Date Type Department Care Team (Late st Contact Info) Description 05/08/2024 9:00 AM [employer] OFFICER visit [facility] - GEOPHYSICAL PROSPECTING PERMIT AGENT [address] [place] [phone] Jacobo Mukherjee MD [address] [place] [phone] 06/05/2024 9:00 AM [employer] OFFIC[employer] visit [facility] - GEOPHYSICAL PROSPECTING PERMIT AGENT [address] [place] [phone] Jacobo Mukherjee MD [address] [place] [phone] Scheduled Orders Name Type Priority Associated Diagnoses Orde r Schedule SURESWAB VAGINOSIS/VAGINITIS PLUS Microbiology Routine Irregular menses Ordered: 12/21/2022 documented as of this encounter Visit Diagnoses Diagnosis Irregular menses- Primary Irregular menstrual cycle documented in this encounter Care Teams Wool Tamper Relationship Specialty Start Date End Date Lexx Varma MD [address] [place] [phone] PCP - General 04/07/20 02/04/24 Hazel Foley APRN-CERAMICS INSTRUCTOR [facility] [place] [address] PCP - General Nurse Practitioner Family 02/05/24 documented as of this encounter
--- OUTSIDE RECORDS SUMMARY | 2024-05-03 20:21 | XMS_ITS | Encounter Summary ---
Author Organization [facility] Address [address] [place] [address] Care Team Providers Care Medical Imaging Specialist Name Role Phone Unavailable Primary Care Provider Unavailabl e Encounter Details Date Type Department Care Team (Late st Contact Info) Description 04/30/2024 External Device Data [facility] ABSTRACTION Provider, [...]
--- OUTSIDE RECORDS SUMMARY | 2024-05-03 20:21 | XMS_ITS | Clinical Summary ---
Author Organization [facility] [address] [place] Address [address] [place] [phone] Care Team Providers Care Rodding Machine Tender Name Role Phone Lexx Varma MD Unavailable [phone] Hazel Foley NP Primary Care Provider [phone] Allergies No known active allergies Medications cetirizine [...] 06/08/2023 Assessment & Plan (06/08/2023 8:40 AM ELECTION WATCHER): Seem to be resolving. Told her to [...] recheck Assessment & Plan (06/08/2023 8:36 AM ELECTION WATCHER): Discussed starting a medication and pt is [...] Assessment & Plan: Condition: stable Discussed with Nikki to continue to take her allergy medications [...] Yrs) PURPLE 07/02/2020,06/11/2020 Tdap 05/16/2022,06/26/2006 Varicella 11/04/2008,03/27/2008 Medical History Medical History Date Comments GERD (gastroesophageal reflux disease) Anxiety Depression Migraines ADHD (attention deficit hyperactivity disorder) Family History Relation Name Status Comments Brother 1 Alive Brother 2 Alive Father Alive Mother Alive Sister Alive Social History Tobacco Use Types Packs/Day Years Used Date Smoking Tobacco: Never Smokeless Tobacco: Never Tobacco Cessation:Counseling Given: Not Answered PHQ-2 Answer Date Recorded PHQ-2 Total Score (If total score is 3 or more points, staff should administer the PHQ-9) 0 01/10/2024 Comments Unknown Sex and Gender Information Value Date Recorded Sex Assigned at Not on file Legal Sex Female 10:18 AM ELECTION WATCHER Gender Identity Not on file Sexual Orientation Not on file Obstetrics History Last Filed Vital Signs Vital Sign Reading Time Taken Comments Blood Pressure 124/74 01/10/2024 8:32 AM CDT Pulse 82 01/10/2024 8:32 AM CDT Temperature 36.7 ??C (98.1 ??F) 01/10/2024 8:32 AM CD T Respiratory Rate 20 05/24/2023 11:0 3 AM ELECTION WATCHER Oxygen Saturation 98% 01/10/2024 8:32 AM CDT Inhaled Oxygen Concentration - - Weight 77.4 kg (170 lb 11.2 oz) 01/10/2024 8:32 AM CDT Height 167.6 cm (5' 6 ) 01/10/2024 8:32 AM CDT Body Mass Index 27.55 01/10/2024 8:32 AM CDT Plan of Treatment Health Maintenance Due Date Last Done Comments Cervical Cancer Screening 1994 Hepatitis C Screening 1995 Covid-19 Vaccine ( season) 2023 07/02/2020, 06/11/2020 Depression Screening 01/09/2025 01/10/2024, 10/04/2023, 08/03/2023, Additional history exists Regular Well Visit/Exam 18-64 01/09/2025 01/10/2024 DTaP/Tdap/Td Vaccine (9 - Td or Tdap) 05/16/2032 05/16/2022, 2016, 07/12/2016, Additional history exists Varicella Vaccines Completed 11/04/2008, 03/27/2008 HPV Vaccines Completed 04/16/2018, 09/08, 11/04/2008 Influenza Vaccine Completed 01/10/2024, , 03/27/2008 Pneumococcal vaccine <65 Aged Out No longer eligible based on patient's age to complete this topic Insurance [employer] Care Teams Rodding Machine Tender Relationship Specialty Start Date End Date Hazel Foley NP PCP - General Family Medicine 06/08/23 Lexx Varma MD 05/10/23
--- OUTSIDE RECORDS SUMMARY | 2024-05-03 20:21 | XMS_ITS | Clinical Summary ---
Author Organization [facility] Address [address] [place] [address] Care Team Providers Care Pulmonologist Intensivist Name Role Phone Hazel Foley RONN-ROTARY SCREEN PRINTING MACHINE OPERATOR Primary Care Provider [phone] Source Comments [facility],non-owned Affiliates and Associated Physician Practices is amultiple site organization consisting of ambulatory clinics and hospital sitesin [place], [place], [place] and [place]. This disclosure is being madepursuant to the Care Everywhere program and may not contain all information available regarding this patient. Last updated 17.[facility] Allergies No known active allergies Medications * [...] low-risk , antepartum 08/02/2022 Abdominal cramping affecting Comments Yes Encounters Date Type Department Care Team Description 04/11/2024 8:00 AM HUMAN RESOURCES OPERATIONS COORDINATOR Procedure visit [facility] - TALENT SOLUTIONS MANAGER [address] [place] [address] [address] [place] [address] Encounter for imaging to assess myocardial viability 04/11/2024 Travel 03/20/2024 Orders Only [facility] - TALENT SOLUTIONS MANAGER [address] [place] [address] Ave [address] [place] [address] Jacobo Mukherjee MD Missed menses 02/23/2024 Orders Only [facility] - TALENT SOLUTIONS MANAGER [address] [place] [address] [address] [place] [address] Jacobo Mukherjee MD 02/05/2024 11:30 AM CDT Procedure visit [facility] - TALENT SOLUTIONS MANAGER [address] [place] [address] Ave [address] [place] [address] Jacobo Mukherjee MD Encounter for IUD removal 02/05/2024 Travel from Last 3 Months Immunizations Name Administration Dates Next Due MMR 08/05/2022(Deferred: - Mother is rubella immune) TDAP (7yrs+) 08/04/2022(Deferred: See Comment s - received 05/16/22),05/16/2022 Family History Medical History Relation Name Comments Hypertension Mother Depression Other family hx Diabetes; unknown type Other family hx High Cholesterol Other family hx Cancer - Breast Neg Hx Relation Name Status Comments Mother Other family hx Social History Tobacco Use Types Packs/Day Years [...] Date Recorded PHQ2 TOTAL SCORE 0 10/19/2022 [facility] - Occupational Stress [...] place to sleep or slept in a usp (including now)? No 08/02/2022 Oberon Depression Scale Answer Date Recorded Oberon Depression Scale Total 1 08/04/2022 The thought [...] Mass Index 27.12 02/05/2024 11:05 AM CDT Plan of Treatment Upcoming Encounters Date Type Department Care Team (Late st Contact Info) Description 05/08/2024 9:00 AM HUMAN RESOURCES OPERATIONS COORDINATOR visit [facility] - TALENT SOLUTIONS MANAGER [address] [place] [address] [place] [phone] Jacobo Mukherjee MD [address] [place] [address] [address] [place] [phone] 06/05/2024 9:00 AM HUMAN RESOURCES OPERATIONS COORDINATOR visit [facility] - TALENT SOLUTIONS MANAGER [address] [place] [phone] Jacobo Mukherjee MD [address] [place] [address] [address] [place] [phone] Health Maintenance Due Date Last Done Comments PAP SMEAR 1994 HEPATITIS B VACCINE (1 of 3 - 19+ 3-dose series) 2013 COVID-19 VACCINE ( season) 2023 02/28/2021, 07/02/2020, 06/11/2020 DEPRESSION SCREENING 04/10/2024 DTAP/TDAP/TD VACCINES (2 - Td or Tdap) 05/16/2032 05/16/2022 ZOSTER VACCINE (1 of 2) 2044 Respiratory Syncytial Virus (RSV) Vaccine Pt: or over 60 yrs (1 - 1-dose 75+ series) 2069 HEPATITIS C SCREENING Completed 12/25/2021 HIV SCREENING Completed 05/16/2022, 12/25/2021 INFLUENZA VACCINE Completed 01/10/2024, , 05/07/2019, Additional history exists HIB VACCINE Aged Out No longer eligi ble based on patient's age to complete this topic HPV VACCINE Aged Out No longer eligi ble based on patient's age to complete this topic MENINGOCOCCAL (Group B) VACCINE Aged Out No longer eligible based on patient's age to complete this topic MENINGOCOCCAL VACCINE Aged Out No jane marisol eligible based on patient's age to complete this topic PNEUMOCOCCAL VACCINE Aged Out No long er eligible based on patient's age to complete this topic Procedures Procedure Name Priority Date/Time Associated Diagnosis Comments SONOGRAM - TRANSVAGINAL Routine 04/11/2024 8:20 AM HUMAN RESOURCES OPERATIONS COORDINATOR Encounter for imaging to assess myocardial viability HCG BETA BLOOD QUANTITATIVE Routine 03/25/2024 10:35 AM HUMAN RESOURCES OPERATIONS COORDINATOR Missed menses HCG BETA BLOOD QUANTITATIVE BRYCE 03/19/2024 3:26 PM HUMAN RESOURCES OPERATIONS COORDINATOR Positive urine test (HCC) MD REMOVE INTRAUTERINE DEVICE Routine 02/05/2024 11:34 AM CDT Encounter for IUD removal CULTURE STREP B Routine 07/11/2022 3:51 PM CDT Normal , third trimester (HCC) HIV-1 HIV-2 ANTIBODY + HIV P24 AG PANEL Routine 05/16/2022 Supervision of normal first in third trimester (HCC) GTT 1 HR (50G) GESTATIONAL SCREEN Routine 04/30/2022 8:04 AM HUMAN RESOURCES OPERATIONS COORDINATOR 24 weeks gestation of (HCC) HEPATITIS C AB W/RFLX TO HCV RNA QN PCR 12/25/2021 12:34 PM CDT from Last 3 Months or Most Recently Relevant to Health Maintenance Results * SONOGRAM - TRANSVAGINAL (04/11/2024 8:20 AM HUMAN RESOURCES OPERATIONS COORDINATOR) Linked Results Indication ======== NOB History ====== [...] in 3 weeks Coding ====== Procedures ? 75285: US Preg Uterus Transvaginal [facility] PACS Anatomical Region Laterality Modality Other 04/11/2024 8:20 AM HUMAN RESOURCES OPERATIONS COORDINATOR Jacobo Mukherjee MD [facility] ORDERABLES * (ABNORMAL) HCG BETA BLOOD QUANTITATIVE (03/25/2024 10:35 AM HUMAN RESOURCES OPERATIONS COORDINATOR) Only the most recent of2 resultswithin the time period is included. HCG Quant 522(H) mIU/mL [facility] Comment: Reference Range Non or premenopausal ?<5 Postmenopausal ? <10 Values from different assay methods may vary. The use of this assay to monitor or to diagnose patients with cancer or any condition unrelated to has not been cleared or approved by the FDA or the manual arts teacher of the assay. Test Performed at: [facility] ??[id number] DEE ARELLANO MD Blood BLOOD SPECIMEN / Unknown 03/25/2024 10:35 AM HUMAN RESOURCES OPERATIONS COORDINATOR 03/25/2024 10:37 AM HUMAN RESOURCES OPERATIONS COORDINATOR Jacobo Mukherjee MD LAB - CHEMISTRY ORD ERABLES [address] [address] * MD REMOVE INTRAUTERINE DEVICE (02/05/2024 11:34 AM CDT) Narrative Jacobo Mukherjee MD - 02/05/2024 11:34 AM CDT Jacobo Mukherjee MD ? 02/05/2024 11:34 AM See note Jacobo Mukherjee MD PROCEDURE/MINOR SABRINA GICAL ORDERABLES * CULTURE STREP B (07/11/2022 3:51 PM CDT) Culture [facility] Comment: ??STREPTOCOCCUS, GROUP B CULTURE ?Micro Number: ?[id number] ??Test Status: ? Final ??Specimen Source: ?? Anorectum/va ??Specimen Quality: ??Adequate ??Result: ?No group B Streptococcus isolated ? Note per CDC guidelines optimal recovery is ? achieved by swabbing both the lower vagina and ? rectum (through the anal sphincter). Test Performed at: [facility] ??[phone] DEE ARELLANO MD Microbiology MISCELLANEOUS SAMPLES / Unknown 07/11/2022 3:51 PM CDT 07/12/2022 1:56 AM CDT Jacobo Mukherjee MD LAB - MICROBIOLOGY ORDERABLES Performing Organization Address [facility]/ZIP Co de Phone Number [address] [address] * HIV-1 HIV-2 ANTIBODY + HIV P24 AG PANEL (05/16/2022) HIV Screen 4th Generation w Reflex NON-REACT [...] ?? For additional information please refer to http://education.ITI Tech/faq/PQS943 (This link is being provided for informational/ educational purposes only.) The performance of this assay has not been clinically validated in patients less than 2 years old. Test Performed at: [facility] [address] [place], [place] ??[address] DEE ARELLANO MD Blood BLOOD SPECIMEN / Unknown 05/16/2022 05/16/2022 3:17 PM HUMAN RESOURCES OPERATIONS COORDINATOR Jacobo Mukherjee MD LAB - CHEMISTRY ORD ERABLES Performing Organization Address [facility]/ZIP Co de Phone Number [address] [address] * GTT 1 HR (50G) GESTATIONAL SCREEN (04/30/2022 8:04 AM HUMAN RESOURCES OPERATIONS COORDINATOR) Glucose Gestational Screen 128 <140 mg/dL [facility] Comment: REPORT COMMENT: FASTING:YES Test Performed at: [facility] [address] [place], [place] ??[address] JENNIFER AMOR DO,MPH Blood BLOOD SPECIMEN / Unknown 04/30/2022 8:04 AM HUMAN RESOURCES OPERATIONS COORDINATOR 04/30/2022 8:10 AM HUMAN RESOURCES OPERATIONS COORDINATOR Jacobo Mukherjee MD LAB - CHEMISTRY ORD ERABLES Performing Organization Address [facility] Co de Phone Number [facility] [address] [place] [address] * HEPATITIS C AB W/RFLX TO HCV RNA QN PCR (12/25/2021 12:34 PM CDT) [facility] Hepatitis C Antibody NON-REACTI VE NON-REACT DALIA [facility] Signal to Cut-Off 0.01 <1.00 [facility] Comment: HCV antibody was non-reactive. There is no laboratory evidence of HCV infection. In most cases, no further action is required. However, if recent HCV exposure is suspected, a test for HCV RNA (test code 45158) is suggested. For additional information please refer to http://education.ITI Tech/faq/XPQ59k4 (This link is being provided for informational/ educational purposes only.) Test Performed at: [facility] [address] [place], [place] ??[phone] JENNIFER AMOR DO,MPH 12/25/2021 12:3 4 PM CDT 12/25/2021 12:39 PM CDT Jacobo Mukherjee MD LAB - CHEMISTRY ORD ERABLES Performing Organization Address City/[facility] Co de Phone Number [facility] [address] [place] [address] from Last 3 Months or Most Recently Relevant to Health Maintenance Insurance Payer Benefit Plan / Group Subscriber ID Effective Dates Phone Address Type WINIFRED BLUE CROSS TRADITIONAL [id number] 01/18/2021-Pr esent [address] [place] [address] PPO [employer]RED [employer]OSS TRADITIONAL [id number] 01/18/2021-Pr esent [address] [place] [address] PPO ANTHEM BLUE CROSS TRADITIONAL [id number] 01/18/2021-Pr esent [address] [place] [address] PPO ANTHEM BLUE CROSS TRADITIONAL [id number] 01/18/2021-Pr esent [address] [place] [address] PPO ANTHEM BLUE CROSS TRADITIONAL [id number] 01/18/2021-Pr esent [address] [place] [address] PPO ANTHEM BLUE CROSS TRADITIONAL [id number] 01/18/2021-Pr esent [address] [place] [address] PPO ANTHEM BLUE CROSS TRADITIONAL [id number] 01/18/2021-Pr esent [address] [place] [address] PPO ANTHEM BLUE CROSS TRADITIONAL [id number] 01/18/2021-Pr esent [address] [place] [address] PPO ANTHEM BLUE CROSS TRADITIONAL [id number] 01/18/2021-Pr esent [address] [place] [address] PPO ANTHEM BLUE CROSS TRADITIONAL [id number] 01/18/2021-Pr esent [address] [place] [address] PPO ANTHEM BLUE CROSS TRADITIONAL [id number] 01/18/2021-Pr esent [address] [place] [address] PPO ANTHEM BLUE CROSS TRADITIONAL [id number] 01/18/2021-Pr esent [address] [place] [address] PPO ANTHEM BLUE CROSS TRADITIONAL [id number] 01/18/2021-Pr esent [address] [place] [address] PPO ANTHEM BLUE CROSS TRADITIONAL [id number] 01/18/2021-Pr esent [address] [place] [address] PPO ANTHEM BLUE CROSS TRADITIONAL [id number] 01/18/2021-Pr esent [address] [place] [address] PPO ANTHEM BLUE CROSS TRADITIONAL [id number] 01/18/2021-Pr esent [address] [place] [address] PPO ANTHEM BLUE CROSS TRADITIONAL [id number] 01/18/2021-Pr esent [address] [place] [address] PPO ANTHEM BLUE CROSS TRADITIONAL [id number] 01/18/2021-Pr esent [address] [place] [address] PPO ANTHEM BLUE CROSS TRADITIONAL [id number] 01/18/2021-Pr esent [address] [place] [address] PPO ANTHEM BLUE CROSS TRADITIONAL [id number] 01/18/2021-Pr esent [address] [place] [address] PPO ANTHEM BLUE CROSS TRADITIONAL [id number] 01/18/2021-Pr esent [address] [place] [address] PPO ANTHEM BLUE CROSS TRADITIONAL [id number] 01/18/2021-Pr esent [address] [place] [address] PPO ANTHEM BLUE CROSS TRADITIONAL [id number] 01/18/2021-Pr esent [address] [place] [address] PPO ANTHEM BLUE CROSS TRADITIONAL [id number] 01/18/2021-Pr esent [address] [place] [address] PPO ANTHEM BLUE CROSS TRADITIONAL [id number] 01/18/2021-Pr esent [address] [place] [address] PPO CIGNA CIGNA OAP [employer] [id number] 04/10/2021-Pres ent [phone] [address] [place] TH[place] [address] [facility] [id number] Effective for all dates [address] [place] [address] Medicaid [place] ANTHEM BLUE CROSS TRADITIONAL [id number] 01/18/2021-Pr esent [address] [place] [address] [facility]PO [facility] [id number] Effective for all dates [address] [place] [address] Medicaid [place] ANTHEM BLUE CROSS TRADITIONAL [id number] 01/18/2021-Pr esent [address] [place] [address] [facility]PO [facility] [id number] Effective for all dates [address] [place] [address] Medicaid [place] ANTHEM BLUE CROSS TRADITIONAL [id number] 01/18/2021-Pr esent [address] [place] [address] [facility]PO [facility] [id number] Effective for all dates [address] [place] [address] Medicaid [place] ANTHEM BLUE CROSS TRADITIONAL [id number] 01/18/2021-Pr esent [address] [place] [address] [facility] [id number] Effective for all dates [address] [place] [address] Medicaid [place] ANTHEM BLUE CROSS TRADITIONAL [id number] 01/18/2021-Pr esent [address] [place] [address] PPO [facility] [id number] Effective for all dates [address] [place] [address] Medicaid [place] ANTHEM BLUE CROSS TRADITIONAL [id number] 01/18/2021-Pr esent [address] [place] [address] [facility] [id number] Effective for all dates [address] [place] [address] Medicaid [place] ANTHEM BLUE CROSS TRADITIONAL [id number] 01/18/2021-Pr esent [address] [place] [address] [facility] [id number] Effective for all dates [address] [place] [address] Medicaid [place] ANTHEM BLUE CROSS TRADITIONAL [id number] 01/18/2021-Pr esent [address] [place] [address] [facility] [id number] Effective for all dates [address] [place] [address] Medicaid [place] ANTHEM BLUE CROSS TRADITIONAL [id number] 01/18/2021-Pr esent [address] [place] [address] [facility] [id number] Effective for all dates [address] [place] [address] Medicaid [place] ANTHEM BLUE CROSS TRADITIONAL [id number] 01/18/2021-Pr esent [address] [place] [address] PPO [facility] [id number] Effective for all dates [address] [place] [address] Medicaid [place] ANTHEM BLUE CROSS TRADITIONAL [id number] 01/18/2021-Pr esent [address] [place] [address] PPO [facility] [id number] Effective for all dates [address] [place] [address] Medicaid [place] ANTHEM BLUE CROSS TRADITIONAL [id number] 01/18/2021-Pr esent [address] [place] [address] [facility] [id number] Effective for all dates [address] [place] [address] Medicaid [place] ANTHEM BLUE CROSS TRADITIONAL [id number] 01/18/2021-Pr esent [address] [place] [address] PPO [facility] [id number] Effective for all dates [address] [place] [address] Medicaid [place] ANTHEM BLUE CROSS TRADITIONAL [id number] 01/18/2021-Pr esent [address] [place] [address] [facility] [id number] Effective for all dates [address] [place] [address] Medicaid [place] ANTHEM BLUE CROSS TRADITIONAL [id number] 01/18/2021-Pr esent [address] [place] [address] [facility]PO [facility] [id number] Effective for all dates [address] [place] [address] Medicaid [place] ANTHEM BLUE CROSS TRADITIONAL [id number] 01/18/2021-Pr esent [address] [place] [address] PPO [facility] [id number] Effective for all dates [address] [place] [address] Medicaid [place] ANTHEM BLUE CROSS TRADITIONAL [id number] 01/18/2021-Pr esent [address] [place] [address] PPO [facility] [id number] Effective for all dates [address] [place] [address] Medicaid [place] ANTHEM BLUE CROSS TRADITIONAL [id number] 01/18/2021-Pr esent [address] [place] [address] [facility] [id number] Effective for all dates [address] [place] [address] Medicaid [place] ANTHEM BLUE CROSS TRADITIONAL [id number] 01/18/2021-Pr esent [address] [place] [address] PPO ANTHEM BLUE CROSS TRADITIONAL [id number] 01/18/2021-Pr esent [address] [place] [address] PPO ANTHEM BLUE CROSS TRADITIONAL [id number] 01/18/2021-Pr esent [address] [place] [address] PPO ANTHEM BLUE CROSS TRADITIONAL [id number] 01/18/2021-Pr esent [address] [place] [address] PPO ANTHEM BLUE CROSS TRADITIONAL [id number] 01/18/2021-Pr esent [address] [place] [address] PPO ANTHEM BLUE CROSS TRADITIONAL [id number] 01/18/2021-Pr esent [address] [place] [address] PPO ANTHEM BLUE CROSS TRADITIONAL [id number] 01/18/2021-Pr esent [address] [place] [address] PPO ANTHEM BLUE CROSS TRADITIONAL [id number] 01/18/2021-Pr esent [address] [place] [address] PPO ANTHEM BLUE CROSS TRADITIONAL [id number] 01/18/2021-Pr esent [address] [place] [address] PPO ANTHEM BLUE CROSS TRADITIONAL [id number] 01/18/2021-Pr esent [address] [place] [address] PPO ANTHEM BLUE CROSS TRADITIONAL [id number] 01/18/2021-Pr esent [address] [place] [address] PPO ANTHEM BLUE CROSS TRADITIONAL [id number] 01/18/2021-Pr esent [address] [place] [address] PPO ANTHEM BLUE CROSS TRADITIONAL [id number] 01/18/2021-Pr esent [address] [place] [address] PPO ANTHEM BLUE CROSS TRADITIONAL [id number] 01/18/2021-Pr esent [address] [place] [address] PPO ANTHEM BLUE CROSS TRADITIONAL [id number] 01/18/2021-Pr esent [address] [place] [address] PPO ANTHEM BLUE CROSS TRADITIONAL [id number] 01/18/2021-Pr esent [address] [place] [address] PPO ANTHEM BLUE CROSS TRADITIONAL [id number] 01/18/2021-Pr esent [address] [place] [address] PPO ANTHEM BLUE CROSS TRADITIONAL [id number] 01/18/2021-Pr esent [address] [place] [address] PPO ANTHEM BLUE CROSS TRADITIONAL [id number] 01/18/2021-Pr esent [address] [place] [address] PPO ANTHEM BLUE CROSS TRADITIONAL [id number] 01/18/2021-Pr esent [address] [place] [address] PPO ANTHEM BLUE CROSS TRADITIONAL [id number] 01/18/2021-Pr esent [address] [place] [address] PPO ANTHEM BLUE CROSS TRADITIONAL 01/18/2021-Pr esent [address] [place] [address] PPO [facility] PPO [id number] 11/09/2019-Pres ent [address] [address] [place] [address] PPO ANTHEM BLUE CROSS TRADITIONAL 01/18/2021-Pr esent [address] [place] [address] PPO ANTHEM BLUE CROSS TRADITIONAL 01/18/2021-Pr esent [address] [place] [address] PPO [facility] PPO [id number] 11/09/2019-Pres ent [address] [address] [place] [address] PPO MEDICAID - OUT OF STATE MEDICAID - [place] [employer] [id number] Effective for all dates [address] [address] [place] [address] Medicaid Advance Directives * Full Code (Latest Code Status on File) Date Activated Date Inactivated Comments 08/02/2022 8:15 AM 08/05/2022 2:02 PM Care Teams Pulmonologist Intensivist Relationship Specialty Start Date End Date Hazel Foley APRN-ROTARY SCREEN PRINTING MACHINE OPERATOR [address] [place] [address] PCP - General Nurse Practitioner Family 02/05/24
--- OUTSIDE RECORDS SUMMARY | 2024-05-03 23:29 | XMS_ITS | Encounter Summary ---
Author Organization [facility] Address [address] [place] [address] Care Team Providers Care Drag Car Racer Name Role Phone Lexx Varma MD Primary Care Provider [phone] Hazel Foley Primary Care Provider [phone] Reason for Visit * Reason Onset Date Comments Concerns 12/21/2022 Encounter Details Date Type Department Care Team (Late st Contact Info) Description 12/21/2022 Telephone [facility] - EVENT DECORATOR [address] [place] [address] Daphnie Pederson APRN-CNP [address] [place] [address] Concerns Social History Tobacco Use [...] Date Recorded PHQ2 TOTAL SCORE 0 10/19/2022 [facility] - Occupational Stress Questionnaire Answer Date Recorded [...] place to sleep or slept in a chcf (including now)? No 08/02/2022 [place] Depression Scale Answer Date Recorded [place] Depression Scale Total 1 08/04/2022 The thought [...] AM CDT RN returned call to [facility] main lab. They received the patients sureswab but should have went to [facility]. They cannot run this lab there with the swab it was collected on. RN will make BIKE ASSEMBLER aware * Telephone Encounter - Claribel Land - 12/21/2022 9:55 AM CDT Caryn from [facility] lab called because patient swap test for BV was sent to there main lab it was suppose to go straight to [facility] they would like to know next steps. Thank You Claribel [phone] documented in this encounter Plan of Treatment Upcoming Encounters Date Type Department Care Team (Late st Contact Info) Description 05/08/2024 9:00 AM ORDNANCE KEEPER visit [facility] - EVENT DECORATOR [address] [place] [phone] Jacobo Mukherjee MD [address] [place] [phone] 06/05/2024 9:00 AM ORDNANCE KEEPER visit [facility] - EVENT DECORATOR [address] [place] [phone] Jacobo Mukherjee MD [address] [place] [phone] Scheduled Orders Name Type Priority Associated Diagnoses Orde r Schedule SURESWAB VAGINOSIS/VAGINITIS PLUS Microbiology Routine Irregular menses Ordered: 12/21/2022 documented as of this encounter Visit Diagnoses Diagnosis Irregular menses- Primary Irregular menstrual cycle documented in this encounter Care Teams Drag Car Racer Relationship Specialty Start Date End Date Lexx Varma MD [address] [place] [phone] PCP - General 04/07/20 02/04/24 Hazel Foley APRN-HATCHERY MAN [facility] [place] [address] PCP - General Nurse Practitioner Family 02/05/24 documented as of this encounter
--- OUTSIDE RECORDS SUMMARY | 2024-05-03 23:29 | XMS_ITS | Clinical Summary ---
Author Organization [facility] [email or web address] Address [address] [facility] [place] [address] Care Team Providers Care Wrong Address Clerk Name Role Phone Hazel Foley RONN-WELT MAKER Primary Care Provider [phone] Source Comments [facility] [email or web address],non-owned Affiliates and Associated Physician Practices is amultiple site organization consisting of ambulatory clinics and hospital sitesin [place], [place], [place] and [place]. This disclosure is being madepursuant to the Care Everywhere program and may not contain all information available regarding this patient. Last updated 17.[facility] [email or web address] Allergies No known active allergies Medications * [...] Department Care Team Description 04/11/2024 8:00 AM ANTENNA RIGGER Procedure visit [facility] - RADIOISOTOPE TECHNICIAN [address] [place] [address] Ave [address] [place] [address] Encounter for imaging to assess myocardial viability 04/11/2024 Travel 03/20/2024 Orders Only [facility] - RADIOISOTOPE TECHNICIAN [address] [place] [address] Ave [address] [place] [address] Jacobo Mukherjee MD Missed menses 02/23/2024 Orders Only [facility] - RADIOISOTOPE TECHNICIAN [address] [place] [address] Ave [address] [place] [address] Jacobo Mukherjee MD 02/05/2024 11:30 AM CDT Procedure visit [facility] - RADIOISOTOPE TECHNICIAN [address] [place] [address] [address] [place] [address] Jacobo Mukherjee MD Encounter for IUD removal [...] Date Recorded PHQ2 TOTAL SCORE 0 10/19/2022 [employer] [facility] - Occupational Stress [...] place to sleep or slept in a prison (including now)? No 08/02/2022 [place] Depression Scale Answer Date Recorded [place] Depression Scale Total 1 08/04/2022 The thought [...] st Contact Info) Description 05/08/2024 9:00 AM ANTENNA RIGGER visit [facility] - RADIOISOTOPE TECHNICIAN [address] [place] [address] [place] [phone] Jacobo Mukherjee MD [address] [place] [address] [place] [phone] 06/05/2024 9:00 AM ANTENNA RIGGER visit [facility] - RADIOISOTOPE TECHNICIAN [address] [facility] [address] [place] [phone] Jacobo Mukherjee MD [address] [place] [address] [address] [place] [phone] Health Maintenance Due Date Last Done Comments [...] SONOGRAM - TRANSVAGINAL Routine 04/11/2024 8:20 AM ANTENNA RIGGER Encounter for imaging to assess myocardial viability HCG BETA BLOOD QUANTITATIVE Routine 03/25/2024 10:35 AM ANTENNA RIGGER Missed menses HCG BETA BLOOD QUANTITATIVE BRYCE 03/19/2024 3:26 PM ANTENNA RIGGER Positive urine test (HCC) [place] REMOVE INTRAUTERINE DEVICE Routine 02/05/2024 11:34 AM CDT Encounter for IUD removal CULTURE STREP B Routine 07/11/2022 3:51 PM CDT Normal , third trimester (HCC) HIV-1 HIV-2 ANTIBODY + HIV P24 AG PANEL Routine 05/16/2022 Supervision of normal first in third trimester (HCC) GTT 1 HR (50G) GESTATIONAL SCREEN Routine 04/30/2022 8:04 AM ANTENNA RIGGER 24 weeks gestation of (HCC) HEPATITIS C AB W/RFLX TO HCV RNA QN PCR 12/25/2021 12:34 PM CDT from Last 3 Months or Most Recently Relevant to Health Maintenance Results * SONOGRAM - TRANSVAGINAL (04/11/2024 8:20 AM ANTENNA RIGGER) Linked Results Indication ======== NOB History ====== [...] in 3 weeks Coding ====== Procedures ? 11183: US Preg Uterus Transvaginal [facility] [employer] PACS Anatomical Region Laterality Modality Other 04/11/2024 8:20 AM ANTENNA RIGGER Jacobo Mukherjee MD [facility] ORDERABLES * (ABNORMAL) HCG BETA BLOOD QUANTITATIVE (03/25/2024 10:35 AM ANTENNA RIGGER) Only the most recent of2 resultswithin the time period is included. HCG Quant 522(H) mIU/mL [facility] Comment: Reference Range Non or premenopausal ?<5 Postmenopausal ? <10 Values from different assay methods may vary. The use of this assay to monitor or to diagnose patients with cancer or any condition unrelated to has not been cleared or approved by the FDA or the computer peripheral equipment operator of the assay. Test Performed at: [facility] ??[id number] DEE ARELLANO MD Blood BLOOD SPECIMEN / Unknown 03/25/2024 10:35 AM ANTENNA RIGGER 03/25/2024 10:37 AM ANTENNA RIGGER Jacobo Mukherjee MD LAB - CHEMISTRY ORD ERABLES [address] [address] * NH REMOVE INTRAUTERINE DEVICE (02/05/2024 11:34 AM CDT) Narrative Jacobo Mukherjee MD - 02/05/2024 11:34 AM CDT Jacobo Mukherjee MD ? 02/05/2024 11:34 AM See note Jacobo Mukherjee MD PROCEDURE/MINOR SABRINA GICAL ORDERABLES * CULTURE STREP B (07/11/2022 3:51 PM CDT) Culture [facility] Comment: ??STREPTOCOCCUS, GROUP B CULTURE ?Micro Number: ?[id number] ??Test Status: ? Final ??Specimen Source: ?? Anorectum/va ??Specimen Quality: ??Adequate ??Result: ?No group B Streptococcus isolated ? Note per CDC guidelines optimal recovery is ? achieved by swabbing both the lower vagina and ? rectum (through the anal sphincter). Test Performed at: [facility] ??[id number] DEE ARELLANO MD Microbiology MISCELLANEOUS SAMPLES / Unknown 07/11/2022 3:51 PM CDT 07/12/2022 1:56 AM CDT aJcobo Mukherjee MD LAB - MICROBIOLOGY ORDERABLES Performing Organization Address [facility]/ZIP Co de Phone Number [address] [address] * HIV-1 HIV-2 ANTIBODY + HIV P24 [...] ?? For additional information please refer to http://education.[employer]/faq/ARG704 (This link is being provided for informational/ educational purposes only.) The performance of this assay has not been clinically validated in patients less than 2 years old. Test Performed at: [facility] [place] [address] [place], [place] ??[phone] DEE ARELLANO MD Blood BLOOD SPECIMEN / Unknown 05/16/2022 05/16/2022 3:17 PM ANTENNA RIGGER Jacobo Mukherjee MD LAB - CHEMISTRY ORD ERABLES Performing Organization Address [facility]/ZIP Co de Phone Number [address] [address] * GTT 1 HR (50G) GESTATIONAL SCREEN (04/30/2022 8:04 AM ANTENNA RIGGER) Glucose Gestational Screen 128 <140 mg/dL [facility] Comment: REPORT COMMENT: FASTING:YES Test Performed at: [facility] [address] [place] ??[address] JENNIFER AMOR DO,MPH Blood BLOOD SPECIMEN / Unknown 04/30/2022 8:04 AM ANTENNA RIGGER 04/30/2022 8:10 AM ANTENNA RIGGER Jacobo Mukherjee MD LAB - CHEMISTRY ORD ERABLES Performing Organization Address [facility] Co de Phone Number [facility] [address] [place] [address] * HEPATITIS C AB W/RFLX TO HCV RNA QN PCR (12/25/2021 12:34 PM CDT) [facility] Hepatitis C Antibody NON-REACTI VE NON-REACT DALIA [facility] Signal to Cut-Off 0.01 <1.00 [facility] Comment: HCV antibody was non-reactive. There is no laboratory evidence of HCV infection. In most cases, no further action is required. However, if recent HCV exposure is suspected, a test for HCV RNA (test code 74379) is suggested. For additional information please refer to http://education.[employer]/faq/FLK09g6 (This link is being provided for informational/ educational purposes only.) Test Performed at: [facility] [address] [place], [place] ??[address] JENNIFER AMOR DO,MPH 12/25/2021 12:3 4 PM CDT 12/25/2021 12:39 PM CDT Jacobo Mukherjee MD LAB - CHEMISTRY ORD ERABLES Performing Organization Address City/[facility] Co de Phone Number [facility] [address] [place] [address] from Last 3 Months or Most Recently Relevant to Health Maintenance Insurance Payer Benefit Plan / Group Subscriber ID Effective Dates Phone Address Type [employer] [id number] 01/18/2021-Pr esent [address] [place] [address] PPO [employer] [id number] 01/18/2021-Pr esent [address] [place] [address] PPO [employer]M [employer] [id number] 01/18/2021-Pr esent [address] [place] [address] PPO [employer]M [employer] [id number] 01/18/2021-Pr esent [address] [place] [address] PPO [employer]M [employer]AL [id number] 01/18/2021-Pr esent [address] [place] [address] PPO AN[employer]M [employer] [id number] 01/18/2021-Pr esent [address] [place] [address] PPO [employer]M [employer]AL [id number] 01/18/2021-Pr esent [address] [place] [address] PPO AN[employer]M [employer]AL [id number] 01/18/2021-Pr esent [address] [place] [address] PPO ANTHEM [employer]ITIONAL [id number] 01/18/2021-Pr esent [address] [place] [address] PPO AN[employer]M [employer]AL [id number] 01/18/2021-Pr esent [address] [place] [address] PPO [employer]M [employer]AL [id number] 01/18/2021-Pr esent [address] [place] [address] PPO AN[employer]M [employer]AL [id number] 01/18/2021-Pr esent [address] [place] [address] PPO ANTHEM [employer]OSS [employer]ITIONAL [id number] 01/18/2021-Pr esent [address] [place] [address] PPO ANTHEM [employer]ITIONAL [id number] 01/18/2021-Pr esent [address] [place] [address] PPO [employer]M [employer]AL [id number] 01/18/2021-Pr esent [address] [place] [address] PPO ANTHEM [employer]AL [id number] 01/18/2021-Pr esent [address] [place] [address] PPO ANTHEM [employer]ITIONAL [id number] 01/18/2021-Pr esent [address] [place] [address] PPO ANTHEM [employer]OSS TRADITIONAL [id number] 01/18/2021-Pr esent [address] [place] [address] PPO ANTHEM [employer]ITIONAL [id number] 01/18/2021-Pr esent [address] [place] [address] PPO [employer]M [employer]AL [id number] 01/18/2021-Pr esent [address] [place] [address] PPO ANTHEM [employer]AL [id number] 01/18/2021-Pr esent [address] [place] [address] PPO AN[employer]M [employer]AL [id number] 01/18/2021-Pr esent [address] [place] [address] PPO AN[employer]M [employer]AL [id number] 01/18/2021-Pr esent [address] [place] [address] PPO ANTHEM [employer]AL [id number] 01/18/2021-Pr esent [address] [place] [address] PPO ANTHEM [employer]ITIONAL [id number] 01/18/2021-Pr esent [address] [place] [address] PPO CIGNA CIGNA OAP [employer] [id number] 04/10/2021-Pres ent [address] MELISSA THOMPSON [phone] [facility] [id number] Effective for all dates [address] [place] [address] Medicaid [place] ANTHEM [employer]ADITIONAL [id number] 01/18/2021-Pr esent [address] [place] [address] [facility] [id number] Effective for all dates [address] [place] [address] Medicaid [place] ANTHEM [employer]ITIONAL [id number] 01/18/2021-Pr esent [address] [place] [address] [facility] [id number] Effective for all dates [address] [place] [address] Medicaid [place] ANTHEM BL[employer] CROSS TRADITIONAL [id number] 01/18/2021-Pr esent [address] [place] [address] [facility] [id number] Effective for all dates [address] [place] [address] Medicaid [place] ANTHEM BL[employer] CROSS TRADITIONAL [id number] 01/18/2021-Pr esent [address] [place] [address] PPO [facility] [id number] Effective for all dates [address] [place] [address] Medicaid [place] ANTHEM BLUE CROSS TRADITIONAL [id number] 01/18/2021-Pr esent [address] [place] [address] PPO [facility] [id number] Effective for all dates [address] [place] [address] Medicaid [place] ANTHEM BLUE CROSS TRADITIONAL [id number] 01/18/2021-Pr esent [address] [place] [address] PPO IVY [facility] [id number] Effective for all dates [address] [place] [address] Medicaid [place] ANTHEM [employer] TRADITIONAL [id number] 01/18/2021-Pr esent [address] [place] [address] PPO IVY [facility] [id number] Effective for all dates [address] [place] [address] Medicaid [place] ANTHEM [employer]ITIONAL [id number] 01/18/2021-Pr esent [address] [place] [address] PPO IVY [facility] [id number] Effective for all dates [address] [place] [address] Medicaid [place] ANTHEM BL[employer] CROSS TRADITIONAL [id number] 01/18/2021-Pr esent [address] [place] [address] PPO IVY [facility] [id number] Effective for all dates [address] [place] [address] Medicaid [place] ANTHEM BL[employer] CROSS TRADITIONAL [id number] 01/18/2021-Pr esent [address] [place] [address] PPO [facility] [id number] Effective for all dates [address] [place] [address] Medicaid [place] ANTHEM BLUE CROSS TRADITIONAL [id number] 01/18/2021-Pr esent [address] [place] [address] PPO [facility] [id number] Effective for all dates [address] [place] [address] Medicaid [place] ANTHEM BLUE CROSS TRADITIONAL [id number] 01/18/2021-Pr esent [address] [place] [address] PPO IVY [facility] [id number] Effective for all dates [address] [place] [address] Medicaid [place] ANTHEM BLUE CROSS TRADITIONAL [id number] 01/18/2021-Pr esent [address] [place] [address] PPO [facility] [id number] Effective for all dates [address] [place] [address] Medicaid [place] ANTHEM BLUE CROSS TRADITIONAL [id number] 01/18/2021-Pr esent [address] [place] [address] PPO IVY [facility] [id number] Effective for all dates [address] [place] [address] Medicaid [place] ANTHEM [employer]OSS TRADITIONAL [id number] 01/18/2021-Pr esent [address] [place] [address] PPO [facility] [id number] Effective for all dates [address] [place] [address] Medicaid [place] ANTHEM BLUE CROSS TRADITIONAL [id number] 01/18/2021-Pr esent [address] [place] [address] PPO [facility] [id number] Effective for all dates [address] [place] [address] Medicaid [place] ANTHEM BLUE CROSS TRADITIONAL [id number] 01/18/2021-Pr esent [address] [place] [address] PPO [facility] [id number] Effective for all dates [address] [place] [address] Medicaid [place] ANTHEM BLUE CROSS TRADITIONAL [id number] 01/18/2021-Pr esent [address] [place] [address] PPO IVY [facility] [id number] Effective for all dates [address] [place] [address] Medicaid [place] ANTHEM BLUE CROSS TRADITIONAL [id number] 01/18/2021-Pr esent [address] [place] [address] PPO ANTHEM BL[employer]OSS TRADITIONAL [id number] 01/18/2021-Pr esent [address] [place] [address] PPO ANTHEM BL[employer]OSS TRADITIONAL [id number] 01/18/2021-Pr esent [address] [place] [address] PPO ANTHEM [employer] TRADITIONAL [id number] 01/18/2021-Pr esent [address] [place] [address] PPO ANTHEM [employer] TRADITIONAL [id number] 01/18/2021-Pr esent [address] [place] [address] PPO ANTHEM BLUE CROSS TRADITIONAL [id number] 01/18/2021-Pr esent [address] [place] [address] PPO ANTHEM BL[employer] CROSS TRADITIONAL [id number] 01/18/2021-Pr esent [address] [place] [address] PPO ANTHEM BL[employer] CROSS TRADITIONAL [id number] 01/18/2021-Pr esent [address] [place] [address] PPO ANTHEM [employer] CROSS TRADITIONAL [id number] 01/18/2021-Pr esent [address] [place] [address] PPO ANTHEM BLUE CROSS TRADITIONAL [id number] 01/18/2021-Pr esent [address] [place] [address] PPO ANTHEM BL[employer] CROSS TRADITIONAL [id number] 01/18/2021-Pr esent [address] [place] [address] PPO ANTHEM BL[employer] CROSS TRADITIONAL [id number] 01/18/2021-Pr esent [address] [place] [address] PPO ANTHEM [employer] TR[employer]ITIONAL [id number] 01/18/2021-Pr esent [address] [place] [address] PPO ANTHEM BLUE CROSS TRADITIONAL [id number] 01/18/2021-Pr esent [address] [place] [address] PPO ANTHEM BLUE CROSS TRADITIONAL [id number] 01/18/2021-Pr esent [address] [place] [address] PPO ANTHEM [employer] CROSS TRADITIONAL [id number] 01/18/2021-Pr esent [address] [place] [address] PPO ANTHEM [employer]OSS TRADITIONAL [id number] 01/18/2021-Pr esent [address] [place] [address] PPO ANTHEM BLUE CROSS TRADITIONAL [id number] 01/18/2021-Pr esent [address] [place] [address] PPO ANTHEM BLUE CROSS TRADITIONAL [id number] 01/18/2021-Pr esent [address] [place] [address] PPO ANTHEM [employer]OSS TRADITIONAL [id number] 01/18/2021-Pr esent [address] [place] [address] PPO ANTHEM BL[employer] CROSS TRADITIONAL [id number] 01/18/2021-Pr esent [address] [place] [address] PPO ANTHEM [employer] CROSS TRADITIONAL 01/18/2021-Pr esent [address] [place] [address] PPO [facility] PPO [id number] 11/09/2019-Pres ent [address] [address] [place] [address] PPO ANTHEM [employer]ITIONAL 01/18/2021-Pr esent [address] [place] [address] PPO ANTHEM [employer]UE CROSS TRADITIONAL 01/18/2021-Pr esent [address] [place] [address] PPO [facility] PPO [id number] 11/09/2019-Pres ent [address] [address] [place] [address] PPO MEDICAID - OUT OF STATE MEDICAID [place] [employer] [id number] Effective for all dates [address] [address] [place] [address] Medicaid Advance Directives * Full Code (Latest Code Status on File) Date Activated Date Inactivated Comments 08/02/2022 8:15 AM 08/05/2022 2:02 PM Care Teams Wrong Address Clerk Relationship Specialty Start Date End Date Hazel Foley APRN-WELT MAKER [address] [place] [address] PCP - General Nurse Practitioner Family 02/05/24
--- OUTSIDE RECORDS SUMMARY | 2024-05-03 23:29 | XMS_ITS | Referral Summary ---
Author Organization [facility] Address [address] [place] [address] Care Team Providers Care Radio Division Lieutenant Name Role Phone Hazel Foley RONN-SUBSTATION SUPERVISOR Primary Care Provider [phone] Source Comments [facility],non-owned Affiliates and Associated Physician Practices is amultiple site organization consisting of ambulatory clinics and hospital sitesin [place], [place], [place] and [place]. This disclosure is being madepursuant to the Care Everywhere program and may not contain all information available regarding this patient. Last updated 17.[facility] Encounters Date Type Department Care Team Description 04/11/2024 Travel 04/11/2024 8:00 AM TRIM CARPENTER Procedure visit [facility] - PAPER MACHINE SUPERVISOR [address] [place] [address] Encounter for imaging to assess myocardial viability 03/20/2024 Orders Only [facility] - PAPER MACHINE SUPERVISOR [address] [place] [phone] Jacobo Mukherjee MD Missed menses 02/23/2024 Orders Only [facility] - PAPER MACHINE SUPERVISOR [address] [place] [phone] Jacobo Mukherjee MD 02/05/2024 11:30 AM CDT Procedure visit [facility] - PAPER MACHINE SUPERVISOR [address] [place] [phone] Jacobo Mukherjee MD Encounter for IUD removal [...] Date Recorded PHQ2 TOTAL SCORE 0 10/19/2022 [facility] - Occupational Stress [...] place to sleep or slept in a retirement (including now)? No 08/02/2022 [place] Depression Scale Answer Date Recorded [place] Depression Scale Total 1 08/04/2022 The thought [...] st Contact Info) Description 05/08/2024 9:00 AM TRIM CARPENTER visit [facility] - PAPER MACHINE SUPERVISOR [address] [phone] Jacobo Mukherjee MD [address] [place] [phone] 06/05/2024 9:00 AM TRIM CARPENTER visit [facility] - PAPER MACHINE SUPERVISOR [address] [facility] [address] [place] [phone] Jacobo Mukherjee MD [address] [place] [address] [address] [place] [phone] Procedures Procedure Name Priority Date/Time Associated Diagnosis Comments SONOGRAM - TRANSVAGINAL Routine 04/11/2024 8:20 AM TRIM CARPENTER Encounter for imaging to assess myocardial viability HCG BETA BLOOD QUANTITATIVE Routine 03/25/2024 10:35 AM TRIM CARPENTER Missed menses HCG BETA BLOOD QUANTITATIVE BRYCE 03/19/2024 3:26 PM TRIM CARPENTER Positive urine test (HCC) DC REMOVE INTRAUTERINE DEVICE Routine 02/05/2024 11:34 AM CDT Encounter for IUD removal CULTURE STREP B Routine 07/11/2022 3:51 PM CDT Normal , third trimester (HCC) HIV-1 HIV-2 ANTIBODY + HIV P24 AG PANEL Routine 05/16/2022 Supervision of normal first in third trimester (HCC) GTT 1 HR (50G) GESTATIONAL SCREEN Routine 04/30/2022 8:04 AM TRIM CARPENTER 24 weeks gestation of (HCC) HEPATITIS C AB W/RFLX TO HCV RNA QN PCR 12/25/2021 12:34 PM CDT from Last 3 Months or Most Recently Relevant to Health Maintenance Results * SONOGRAM - TRANSVAGINAL (04/11/2024 8:20 AM TRIM CARPENTER) Linked Results Indication ======== NOB History ====== [...] in 3 weeks Coding ====== Procedures ? 21563: US Preg Uterus Transvaginal e-volo PACS Anatomical Region Laterality Modality Other 04/11/2024 8:20 AM TRIM CARPENTER Jacobo Mukherjee MD [facility] ORDERABLES * (ABNORMAL) HCG BETA BLOOD QUANTITATIVE (03/25/2024 10:35 AM TRIM CARPENTER) Only the most recent of2 resultswithin the time period is included. HCG Quant 522(H) mIU/mL [facility] Comment: Reference Range Non or premenopausal ?<5 Postmenopausal ? <10 Values from different assay methods may vary. The use of this assay to monitor or to diagnose patients with cancer or any condition unrelated to has not been cleared or approved by the FDA or the teacher dancing of the assay. Test Performed at: [facility] ??[id number] DEE ARELLANO MD Blood BLOOD SPECIMEN / Unknown 03/25/2024 10:35 AM TRIM CARPENTER 03/25/2024 10:37 AM TRIM CARPENTER Jacobo Mukherjee MD LAB - CHEMISTRY ORD ERABLES [address] [address] * DC REMOVE INTRAUTERINE DEVICE (02/05/2024 11:34 AM CDT) Narrative Jacobo Mukherjee MD - 02/05/2024 11:34 AM CDT Jacobo Mukherjee MD ? 02/05/2024 11:34 AM See note Jacobo Mukherjee MD PROCEDURE/MINOR SAB[facility] ORDERABLES * CULTURE STREP B (07/11/2022 3:51 PM CDT) [facility] Culture [facility] Comment: ??STREPTOCOCCUS, GROUP B CULTURE ?Micro Number: ?[id number] ??Test Status: ? Final ??Specimen Source: ?? Anorectum/va ??Specimen Quality: ??Adequate ??Result: ?No group B Streptococcus isolated ? Note per CDC guidelines optimal recovery is ? achieved by swabbing both the lower vagina and ? rectum (through the anal sphincter). Test Performed at: [facility] ??[phone] DEE ARELLANO MD Microbiology MISCELLANEOUS SAMPLES / Unknown 07/11/2022 3:51 PM CDT 07/12/2022 1:56 AM CDT Jacobo Mukherjee MD LAB - MICROBIOLOGY ORDERABLES Performing Organization Address [facility] Co de Phone Number [address] [address] * HIV-1 HIV-2 ANTIBODY + HIV P24 AG PANEL (05/16/2022) [facility] HIV Screen 4th Generation w Reflex NON-REACT [...] ?? For additional information please refer to http://education.RIISnet/faq/JUP746 (This link is being provided for informational/ educational purposes only.) The performance of this assay has not been clinically validated in patients less than 2 years old. Test Performed at: [facility] [address] [place], [place] ??[phone] DEE ARELLANO MD Blood BLOOD SPECIMEN / Unknown 05/16/2022 05/16/2022 3:17 PM TRIM CARPENTER Jacobo Mukherjee MD LAB - CHEMISTRY ORD ERABLES Performing Organization Address [facility] Co de Phone Number [facility] [address] [place] [address] * GTT 1 HR (50G) GESTATIONAL SCREEN (04/30/2022 8:04 AM TRIM CARPENTER) Pathologist [facility] Glucose Gestational Screen 128 <140 mg/dL [facility] Comment: REPORT COMMENT: FASTING:YES Test Performed at: [facility] [place], [place] ??[phone] JENNIFER AMOR DO,MPH Blood BLOOD SPECIMEN / Unknown 04/30/2022 8:04 AM TRIM CARPENTER 04/30/2022 8:10 AM TRIM CARPENTER Jacobo Mukherjee MD LAB - CHEMISTRY ORD ERABLES Performing Organization Address [facility] Co de Phone Number [facility] [address] [place] [address] * HEPATITIS C AB W/RFLX TO HCV RNA QN PCR (12/25/2021 12:34 PM CDT) Pathologist [facility] Hepatitis C Antibody NON-REACTI VE NON-REACT [place] [facility] Signal to Cut-Off 0.01 <1.00 [facility] Comment: HCV antibody was non-reactive. There is no laboratory evidence of HCV infection. In most cases, no further action is required. However, if recent HCV exposure is suspected, a test for HCV RNA (test code 79323) is suggested. For additional information please refer to http://education.RIISnet/faq/CBH09z0 (This link is being provided for informational/ educational purposes only.) Test Performed at: [facility] [address] [place], [place] ??[phone] JENNIFER AMOR DO,MPH 12/25/2021 12:3 4 PM CDT 12/25/2021 12:39 PM CDT Jacobo Mukherjee MD LAB - CHEMISTRY ORD ERABLES [facility] [address] [place] [address] from Last 3 Months or Most Recently Relevant to Health Maintenance Insurance Payer Benefit Plan / Group Subscriber ID Effective Dates Phone Address Type ANTHEM BLUE CROSS TRADITIONAL [id number] 01/18/2021-Pr esent [address] [place] [address] PPO ANTHEM BLUE CROSS TRADITIONAL [id number] 01/18/2021-Pr esent [address] [place] [address] PPO ANTHEM BLUE CROSS TRADITIONAL [id number] 01/18/2021-Pr esent [address] [place] [address] PPO ANTHEM BLUE CROSS TRADITIONAL [id number] 01/18/2021-Pr esent [address] [place] [address] PPO ANTHEM BLUE CROSS TRADITIONAL [id number] 01/18/2021-Pr esent [address] [place] [address] PPO ANTHEM BLUE CROSS TRADITIONAL [id number] 01/18/2021-Pr esent [address] [place] [address] PPO ANTHEM BLUE CROSS TRADITIONAL [id number] 01/18/2021-Pr esent [address] [place] [address] PPO ANTHEM BLUE CROSS TRADITIONAL [id number] 01/18/2021-Pr esent [address] [place] [address] PPO ANTHEM BLUE CROSS TRADITIONAL [id number] 01/18/2021-Pr esent [address] [place] [address] PPO ANTHEM BLUE CROSS TRADITIONAL [id number] 01/18/2021-Pr esent [address] [place] [address] PPO ANTHEM BLUE CROSS TRADITIONAL [id number] 01/18/2021-Pr esent [address] [place] [address] PPO ANTHEM BLUE CROSS TRADITIONAL [id number] 01/18/2021-Pr esent [address] [place] [address] PPO ANTHEM BLUE CROSS TRADITIONAL [id number] 01/18/2021-Pr esent [address] [place] [address] PPO ANTHEM BLUE CROSS TRADITIONAL [id number] 01/18/2021-Pr esent [address] [place] [address] PPO ANTHEM BLUE CROSS TRADITIONAL [id number] 01/18/2021-Pr esent [address] [place] [address] PPO ANTHEM BLUE CROSS TRADITIONAL [id number] 01/18/2021-Pr esent [address] [place] [address] PPO ANTHEM BLUE CROSS TRADITIONAL [id number] 01/18/2021-Pr esent [address] [place] [address] PPO ANTHEM BLUE CROSS TRADITIONAL [id number] 01/18/2021-Pr esent [address] [place] [address] PPO ANTHEM BLUE CROSS TRADITIONAL [id number] 01/18/2021-Pr esent [address] [place] [address] PPO ANTHEM BLUE CROSS TRADITIONAL [id number] 01/18/2021-Pr esent [address] [place] [address] PPO ANTHEM BLUE CROSS TRADITIONAL [id number] 01/18/2021-Pr esent [address] [place] [address] PPO ANTHEM BLUE CROSS TRADITIONAL [id number] 01/18/2021-Pr esent [address] [place] [address] PPO ANTHEM BLUE CROSS TRADITIONAL [id number] 01/18/2021-Pr esent [address] [place] [address] PPO ANTHEM BLUE CROSS TRADITIONAL [id number] 01/18/2021-Pr esent [address] [place] [address] PPO ANTHEM BLUE CROSS TRADITIONAL [id number] 01/18/2021-Pr esent [address] [place] [address] PPO CIGNA CIGNA OAP [employer] [id number] 04/10/2021-Pres ent [address] [place] [address] [facility] [id number] Effective for all dates [address] [place] [address] Medicaid [place] ANTHEM BLUE CROSS TRADITIONAL [id number] 01/18/2021-Pr esent [address] [place] [address] PPO [facility] [id number] Effective for all dates [address] [place] [address] Medicaid [place] ANTHEM BLUE CROSS TRADITIONAL [id number] 01/18/2021-Pr esent [address] [place] [address] [facility]PO [facility] [id number] Effective for all dates [address] [place] [address] Medicaid [place] ANTHEM BLUE CROSS TRADITIONAL [id number] 01/18/2021-Pr esent [address] [place] [address] [facility]PO [facility] [id number] Effective for all dates [address] [place] [address] Medicaid [place] ANTHEM BLUE CROSS TRADITIONAL [id number] 01/18/2021-Pr esent [address] [place] [address] PPO [facility] [id number] Effective for all dates [address] [place] [address] Medicaid [place] ANTHEM BLUE CROSS TRADITIONAL [id number] 01/18/2021-Pr esent [address] [place] [address] PPO [facility] [id number] Effective for all dates [address] [place] [address] Medicaid [place] ANTHEM BLUE CROSS TRADITIONAL [id number] 01/18/2021-Pr esent [address] [place] [address] PPO [facility] [id number] Effective for all dates [address] [place] [address] Medicaid [place] ANTHEM BLUE CROSS TRADITIONAL [id number] 01/18/2021-Pr esent [address] [place] [address] PPO [facility] [id number] Effective for all dates [address] [place] [address] Medicaid [place] ANTHEM BLUE CROSS TRADITIONAL [id number] 01/18/2021-Pr esent [address] [place] [address] PPO [facility] [id number] Effective for all dates [address] [place] [address] Medicaid [place] ANTHEM BLUE CROSS TRADITIONAL [id number] 01/18/2021-Pr esent [address] [place] [address] PPO [facility] [id number] Effective for all dates [address] [place] [address] Medicaid [place] ANTHEM BLUE CROSS TRADITIONAL [id number] 01/18/2021-Pr esent [address] [place] [address] PPO [facility] [id number] Effective for all dates [address] [place] [address] Medicaid [place] ANTHEM BLUE CROSS TRADITIONAL [id number] 01/18/2021-Pr esent [address] [place] [address] PPO [facility] [id number] Effective for all dates [address] [place] [address] Medicaid [place] ANTHEM BLUE CROSS TRADITIONAL [id number] 01/18/2021-Pr esent [address] [place] [address] PPO [facility] [id number] Effective for all dates [address] [place] [address] Medicaid [place] ANTHEM BLUE CROSS TRADITIONAL [id number] 01/18/2021-Pr esent [address] [place] [address] PPO [facility] [id number] Effective for all dates [address] [place] [address] Medicaid [place] ANTHEM BLUE CROSS TRADITIONAL [id number] 01/18/2021-Pr esent [address] [place] [address] PPO [facility] [id number] Effective for all dates [address] [place] [address] Medicaid [place] ANTHEM BLUE CROSS TRADITIONAL [id number] 01/18/2021-Pr esent [address] [place] [address] PPO [facility] [id number] Effective for all dates [address] [place] [address] Medicaid [place] ANTHEM BLUE CROSS TRADITIONAL [id number] 01/18/2021-Pr esent [address] [place] [address] PPO [facility] [id number] Effective for all dates [address] [place] [address] Medicaid [place] ANTHEM BLUE CROSS TRADITIONAL [id number] 01/18/2021-Pr esent [address] [place] [address] PPO [facility] [id number] Effective for all dates [address] [place] [address] Medicaid [place] ANTHEM BLUE CROSS TRADITIONAL [id number] 01/18/2021-Pr esent [address] [place] [address] PPO [facility] [id number] Effective for all dates [address] [place] [address] Medicaid [place] ANTHEM BLUE CROSS TRADITIONAL [id number] 01/18/2021-Pr esent [address] [place] [address] PPO ANTHEM BLUE CROSS TRADITIONAL [id number] 01/18/2021-Pr esent [address] [place] [address] PPO ANTHEM BLUE CROSS TRADITIONAL [id number] 01/18/2021-Pr esent [address] [place] [address] PPO ANTHEM BLUE CROSS TRADITIONAL [id number] 01/18/2021-Pr esent [address] [place] [address] PPO ANTHEM BLUE CROSS TRADITIONAL [id number] 01/18/2021-Pr esent [address] [place] [address] PPO ANTHEM BLUE CROSS TRADITIONAL [id number] 01/18/2021-Pr esent [address] [place] [address] PPO ANTHEM BLUE CROSS TRADITIONAL [id number] 01/18/2021-Pr esent [address] [place] [address] PPO ANTHEM BLUE CROSS TRADITIONAL [id number] 01/18/2021-Pr esent [address] [place] [address] PPO ANTHEM BLUE CROSS TRADITIONAL [id number] 01/18/2021-Pr esent [address] [place] [address] PPO ANTHEM BLUE CROSS TRADITIONAL [id number] 01/18/2021-Pr esent [address] [place] [address] PPO ANTHEM BLUE CROSS TRADITIONAL [id number] 01/18/2021-Pr esent [address] [place] [address] PPO ANTHEM BLUE CROSS TRADITIONAL [id number] 01/18/2021-Pr esent [address] [place] [address] PPO ANTHEM BLUE CROSS TRADITIONAL [id number] 01/18/2021-Pr esent [address] [place] [address] PPO ANTHEM BLUE CROSS TRADITIONAL [id number] 01/18/2021-Pr esent [address] [place] [address] PPO ANTHEM BLUE CROSS TRADITIONAL [id number] 01/18/2021-Pr esent [address] [place] [address] PPO ANTHEM BLUE CROSS TRADITIONAL [id number] 01/18/2021-Pr esent [address] [place] [address] PPO ANTHEM BLUE CROSS TRADITIONAL [id number] 01/18/2021-Pr esent [address] [place] [address] PPO ANTHEM BLUE CROSS TRADITIONAL [id number] 01/18/2021-Pr esent [address] [place] [address] PPO ANTHEM BLUE CROSS TRADITIONAL [id number] 01/18/2021-Pr esent [address] [place] [address] PPO ANTHEM BLUE CROSS TRADITIONAL [id number] 01/18/2021-Pr esent [address] [place] [address] PPO ANTHEM BLUE CROSS TRADITIONAL [id number] 01/18/2021-Pr esent [address] [place] [address] PPO ANTHEM BLUE CROSS TRADITIONAL 01/18/2021-Pr esent [address] [place] [address] PPO [facility]MR PPO [id number] 11/09/2019-[facility] [address] [address] [place] [address] PPO ANTHEM BLUE CROSS TRADITIONAL 01/18/2021-Pr esent [address] [place] [address] PPO ANTHEM BLUE CROSS TRADITIONAL 01/18/2021-Pr esent [address] [place] [address] PPO [facility]MR PPO [id number] 11/09/2019-Pres ent [id number] [phone] [address] [place] [address] PPO MEDICAID - OUT OF STATE MEDICAID - [place] PUBLIC [employer] [id number] Effective for all dates [address] [address] [place] [address] Medicaid Advance Directives * Full Code (Latest Code Status on File) Date Activated Date Inactivated Comments 08/02/2022 8:15 AM 08/05/2022 2:02 PM Care Teams Radio Division Lieutenant Relationship Specialty Start Date End Date Hazel Foley APRN-NADINE [address] [place] [address] PCP - General Nurse Practitioner Family 02/05/24
--- OUTSIDE RECORDS SUMMARY | 2024-05-03 23:29 | XMS_ITS | Encounter Summary ---
Author Organization [facility] Address [address] [place] [address] Care Team Providers Care Purchasing Intern Name Role Phone Unavailable Primary Care Provider [...]
--- OUTSIDE RECORDS SUMMARY | 2024-05-03 23:29 | XMS_ITS | Referral Summary ---
Author Organization [facility] [address] [place] Address [address] [place] [address] Care Team Providers Care Direct Sales Consultant Name Role Phone Lexx Varma MD Unavailable [phone] Hazel Foley NP Primary Care Provider [phone] Allergies No known active allergies Medications cetirizine [...] 06/08/2023 Assessment & Plan (06/08/2023 8:40 AM CARTOGRAPHY PROFESSOR): Seem to be resolving. Told her to [...] recheck Assessment & Plan (06/08/2023 8:36 AM CARTOGRAPHY PROFESSOR): Discussed starting a medication and pt is [...] on file Legal Sex Female 10:18 AM CARTOGRAPHY PROFESSOR Gender Identity Not on file Sexual Orientation Not on file Last Filed Vital Signs Vital Sign Reading Time Taken Comments Blood Pressure 124/74 01/10/2024 8:32 AM CDT Pulse 82 01/10/2024 8:32 AM CDT Temperature 36.7 ??C (98.1 ??F) 01/10/2024 8:32 AM CD T Respiratory Rate 20 05/24/2023 11:0 3 AM CARTOGRAPHY PROFESSOR Oxygen Saturation 98% 01/10/2024 8:32 AM CDT Inhaled Oxygen Concentration - - Weight 77.4 kg (170 lb 11.2 oz) 01/10/2024 8:32 AM CDT Height 167.6 cm (5' 6 ) 01/10/2024 8:32 AM CDT Body Mass Index 27.55 01/10/2024 8:32 AM CDT Plan of Treatment Not on file Insurance ROSALINDA LEUNGGIANCE Care Teams Direct Sales Consultant Relationship Specialty Start Date End Date Hazel Foley NP PCP - General Family Medicine 06/08/23 Lexx Varma MD 05/10/23
--- OUTSIDE RECORDS SUMMARY | 2024-05-03 23:29 | XMS_ITS | Clinical Summary ---
Author Organization [facility] [address] [place] Address [address] [place] [address] Care Team Providers Care Sample Selector Name Role Phone Lexx Varma MD Unavailable [phone] Hazel Foley NP Primary Care Provider [phone] Allergies No known active allergies Medications cetirizine [...] 06/08/2023 Assessment & Plan (06/08/2023 8:40 AM TRANSPORT PILOT): Seem to be resolving. Told her to [...] recheck Assessment & Plan (06/08/2023 8:36 AM TRANSPORT PILOT): Discussed starting a medication and pt is [...] on file Legal Sex Female 10:18 AM TRANSPORT PILOT Gender Identity Not on file Sexual Orientation Not on file Obstetrics History Last Filed Vital Signs Vital Sign Reading Time Taken Comments Blood Pressure 124/74 01/10/2024 8:32 AM CDT Pulse 82 01/10/2024 8:32 AM CDT Temperature 36.7 ??C (98.1 ??F) 01/10/2024 8:32 AM CD T Respiratory Rate 20 05/24/2023 11:0 3 AM TRANSPORT PILOT Oxygen Saturation 98% 01/10/2024 8:32 AM CDT [...] this topic Insurance ROSALINDA ALLEGIANCE Care Teams Sample Selector Relationship Specialty Start Date End Date Hazel Foley NP PCP - General Family Medicine 06/08/23 Lexx Varma MD 05/10/23
--- OUTSIDE RECORDS SUMMARY | 2024-05-03 23:29 | XMS_ITS | Patient Health Summary ---
Author Organization [facility] [employer] Address [address] [place] [address] Care Team Providers Care Pediatric Hospitalist Name Role Phone Hazel Foley RONN-DIE REPAIRER FORGING Primary Care Provider [phone] Note from [facility],non-owned Affiliates and Associated Physician Practices is amultiple site organization consisting of ambulatory clinics and hospital sitesin [place], [place], [place] and [place]. This disclosure is being madepursuant to the Care Everywhere program and may not contain all information available regarding this patient. Last updated 17.[facility] Allergies No known active allergies Medications * [...] Date Recorded PHQ2 TOTAL SCORE 0 10/19/2022 [facility] - Occupational [...] place to sleep or slept in a penitentiary (including now)? No 08/02/2022 Flynn Depression Scale Answer Date Recorded Flynn Depression Scale Total 1 08/04/2022 The thought [...] Performed for Positive urine test (HCC) * NE REMOVE INTRAUTERINE DEVICE(Performed 02/05/2024) Performed for Encounter for IUD removal * CULTURE URINE(Performed 03/21/2023) Performed for Dysuria * NE SONO EXAM, TRANSVAGINAL(Performed 01/09/2023) Performed for Irregular menses * IMAGING/RADIOLOGY/XRAY RESULTS ORDER(Performed 01/09/2023) * NE SONO EXAM, TRANSVAGINAL(Performed 09/28/2022) Performed for Encounter [...] (AMB) [facility](Performed 07/25/2022) Performed for Third trimester ([facility]) * URINALYSIS - POINT OF CARE (AMB) [facility](Performed 07/18/2022) Performed for Supervision of normal first in third trimester ([facility]) * CULTURE STREP B(Performed 07/11/2022) Performed for Normal , third trimester ([facility]) * NE SONO FU OR REPEAT(Performed 07/11/2022) Performed for Supervision of normal first in third trimester ([facility]), Low weight gain, antepartum, third trimester ([facility]), Encounter for ultrasound to assess growth ([facility]), Maternal obesity, antepartum, third trimester ([facility]) * IMAGING/RADIOLOGY/XRAY RESULTS ORDER(Performed 07/11/2022) * URINALYSIS - POINT OF CARE (AMB) [facility](Performed 07/11/2022) Performed for Normal , third trimester ([facility]) * NON-STRESS TEST(Performed 07/04/2022) * URINE MICROSCOPIC ONLY REFLEX TO CULTURE(Performed 07/04/2022) Performed for Abdominal cramping affecting ([facility]) * URINALYSIS REFLEX MICROSCOPIC REFLEX CULTURE(Performed 07/04/2022) Performed for Abdominal cramping affecting ([facility]) * CULTURE URINE(Performed 07/04/2022) Performed for Abdominal cramping affecting ([facility]) * CULTURE URINE(Performed 06/28/2022) Performed for Supervision of normal first in third trimester ([facility]) * URINALYSIS - POINT OF CARE (AMB) [facility](Performed 06/27/2022) Performed for Supervision of normal first in third trimester ([facility]) * NE SONO FU OR REPEAT(Performed 06/13/2022) Performed for Low weight gain, antepartum, third trimester ([facility]), Encounter for ultrasound to assess growth ([facility]), Maternal obesity, antepartum, third trimester ([facility]) * IMAGING/RADIOLOGY/XRAY RESULTS ORDER(Performed 06/13/2022) * URINALYSIS - POINT OF CARE (AMB) [facility](Performed 06/13/2022) Performed for Supervision of normal first in third trimester ([facility]) * URINALYSIS - POINT OF CARE (AMB) [facility](Performed 05/30/2022) Performed for Supervision of normal first in third trimester ([facility]) * NE SONO FU OR REPEAT(Performed 05/16/2022) Performed for Low weight gain during in second trimester ([facility]), Obesity affecting in second trimester ([facility]), Encounter for ultrasound to assess growth ([facility]) * IMAGING/RADIOLOGY/XRAY RESULTS ORDER(Performed 05/16/2022) * HIV-1 HIV-2 ANTIBODY + HIV P24 AG PANEL(Performed 05/16/2022) Performed for Supervision of normal first in third trimester ([facility]) * TREPONEMA PALLIDUM POS REFLX RPR(Performed 05/16/2022) Performed for Supervision of normal first in third trimester ([facility]) * CBC W/O DIFFERENTIAL(Performed 05/16/2022) Performed for Supervision of normal first in third trimester ([facility]) * GTT 1 HR (50G) GESTATIONAL SCREEN(Performed 04/30/2022) Performed for 24 weeks gestation of ([facility]) * URINALYSIS - POINT OF CARE (AMB) [facility](Performed 04/18/2022) Performed for 24 weeks gestation of ([facility]) * NE ULTRASND,PREG UTERUS,IMAGE DOC(Performed 03/21/2022) Performed for Encounter for anatomic survey ([facility]), 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 ([facility]), Obesity affecting in second trimester ([facility]), BMI 34.0-34.9,adult * IMAGING/RADIOLOGY/XRAY RESULTS ORDER(Performed 03/21/2022) * URINALYSIS - POINT OF CARE (AMB) [facility](Performed 03/21/2022) Performed for 20 weeks gestation of ([facility]) * CULTURE URINE(Performed 03/09/2022) * URINALYSIS - POINT OF CARE (AMB) [facility](Performed 02/14/2022) Performed for 15 weeks gestation of ([facility]) * LAB RESULTS ORDER(Performed 02/02/2022) * URINALYSIS - POINT OF CARE (AMB) [facility](Performed 01/17/2022) Performed for 11 weeks gestation of ([facility]) * BLOOD TYPE ABO+ RH PANEL(Performed 12/25/2021) [...] 12/20/2021) Performed for 6 weeks gestation of ([facility]) * NE ULTRASND,PREG UTER,TRANSVAGIN(Performed 12/20/2021) Performed for PCOS (polycystic ovarian syndrome), Maternal obesity, antepartum, first trimester ([facility]), Encounter for routine ultrasound ([facility]) * IMAGING/RADIOLOGY/XRAY RESULTS ORDER(Performed 12/20/2021) * URINALYSIS - POINT OF CARE (AMB) [facility](Performed 12/20/2021) Performed for 6 weeks gestation of ([facility]) * HCG BETA BLOOD QUANTITATIVE(Performed 12/11/2021) Performed for Early stage of ([facility]) * HCG BETA BLOOD QUANTITATIVE(Performed 12/09/2021) Performed for Early stage of ([facility]) * HCG BETA BLOOD QUANTITATIVE(Performed 11/26/2021) Performed for Low maternal serum human chorionic gonadotropin (hCG) * HCG BETA BLOOD QUANTITATIVE(Performed 11/24/2021) Performed for Early stage of (HCC) * NE SPERM WASHING FOR ARTIF INSEM(Performed 11/15/2021) Performed for Infertility associated with anovulation * NE ARTIF INSEMINATION,INTRA-UTERINE(Performed 11/15/2021) Performed for Infertility associated [...] * SONOGRAM - TRANSVAGINAL (04/11/2024 8:20 AM [employer]NON CREW[employer]) Linked Results Indication ======== NOB History ====== [...] in 3 weeks Coding ====== Procedures ? 99440: US Preg Uterus Transvaginal [email or web address] PACS Anatomical Region Laterality Modality Other 04/11/2024 8:20 AM [employer] CREWMEMBER Emily Mukherjee MD [facility] ORDERABLES * (ABNORMAL) HCG BETA BLOOD QUANTITATIVE (03/25/2024 10:35 AM [employer] CREW[employer]BER) Only the most recent of6 resultswithin the time period is included. HCG Quant 522(H) mIU/mL [facility] Comment: Reference Range Non or premenopausal ?<5 Postmenopausal ? <10 Values from different assay methods may vary. The use of this assay to monitor or to diagnose patients with cancer or any condition unrelated to has not been cleared or approved by the FDA or the hooker up of the assay. Test Performed at: [facility] ??[id number] DEE ARELLANO MD Blood BLOOD SPECIMEN / Unknown 03/25/2024 10:35 AM [employer] CREWMEMBER 03/25/2024 10:37 AM [employer]BER Emily Mukherjee MD LAB - CHEMISTRY ORD ERABLES [facility] [address] [place] [address] * NE REMOVE INTRAUTERINE DEVICE (02/05/2024 11:34 AM CDT) Narrative Emily Mukherjee MD - 02/05/2024 11:34 AM CDT Emily Mukherjee MD ? 02/05/2024 11:34 AM See note Emily Mukherjee MD PROCEDURE/MINOR SABRINA GICAL ORDERABLES * CULTURE URINE (03/21/2023 3:48 PM [employer] CREW[employer]BER) Only the most recent of4 resultswithin the time period is included. Culture [facility] Comment: ??CULTURE, URINE, ROUTINE ?Micro Number: ?[id number] ??Test Status: ? Final ??Specimen Source: ?? [...] Tube. REPORT COMMENT: FASTING:NO Test Performed at: [facility] ??[id number] DEE ARELLANO MD Urine URINE SPECIMEN OBTAINED BY CLEAN CATCH PROCEDURE / Unknown 03/21/2023 3:48 PM [employer] CREW[employer]BER 03/21/2023 3:49 PM [employer]NON CREWMEMBER Emily Mukherjee MD LAB - MICROBIOLOGY ORDERABLES [facility] [address] [place] [address] * NE SONO EXAM, TRANSVAGINAL (01/09/2023 9:05 AM CDT) Narrative Herbie Branham RDMS - 01/09/2023 9:05 AM CDT Herbie Branham RDMS ? 01/09/2023 ??9:05 AM Documentation in digisonics. Daphnie Pederson HISTORICAL INTERPRETER-DIE REPAIRER FORGING PROCEDURE/MINOR CROWDER RGICAL ORDERABLES * IMAGING RADIOLOGY XRAY RESULTS ORDER (01/09/2023) Only the most recent of7 resultswithin the time period is included. Anatomical Region Laterality Modality Other Narrative 01/09/2023 Ordered by an unspecified provider. Scanned Document IMAGING * NE SONO EXAM, TRANSVAGINAL (09/28/2022 11:34 AM CDT) [...] [facility] [address] [place] [address], [facility] [phone] * (ABNORMAL) COMPREHENSIVE METABOLIC PANEL (08/04/2022 8:51 AM CDT) Glucose 87 70 - 105 mg/dL 08/04/2022 9:33 AM [facility] Sodium 139 136 - 145 mmol/L 08/04/2022 9:33 AM [facility] Potassium 3.6 3.5 - 5.1 mmol/L 08/04/2022 9:33 AM [facility] Chloride 111(H) 98 - 107 mmol/L 08/04/2022 9:33 AM [facility] CO2 18(L) 23 - 31 mmol/L 08/04/2022 9:33 AM [facility] Calcium 8.7 8.4 - 10.4 mg/dL 08/04/2022 9:33 AM [facility] Anion Gap 10 8 - 18 mmol/L 08/04/2022 9:33 AM [facility] BUN 5(L) 7 - 18.7 mg/dL 08/04/2022 9:33 AM [facility] Creatinine 0.62 0.57 - 1.11 mg/dL 08/04/2022 9:33 AM [facility] Alkaline Phosphatase 94 40 - 150 U/L 08/04/2022 9:33 AM [facility] ALT 8 0 - 61 U/L 08/04/2022 9:33 AM [facility] AST 17 5 - 34 U/L 08/04/2022 9:33 AM [facility] Protein Total 5.5(L) 6.4 - 8.3 gm/dL 08/04/2022 9:33 AM [facility] Albumin 2.8(L) 3.5 - 5.2 gm/dL 08/04/2022 9:33 AM [facility] Bilirubin Total 0.5 0.2 - 1.2 mg/dL 08/04/2022 9:33 AM [facility] eGFR by CKD-EPI >90 >=90 mL/min/1.7 3 m2 08/04/2022 9:33 AM [facility] Blood BLOOD SPECIMEN / Unknown Lab Venipuncture / Unknown 08/04/2022 8:51 AM CDT 08/04/2022 9:13 AM T Ani Hope MD LAB - CHEMISTRY ORDE RABLES [facility] Organization Address City/State/ZIP Co de Phone Number [facility] [address] [place] [address] * (ABNORMAL) CBC W AUTO DIFFERENTIAL (08/04/2022 3:23 AM CDT) Only the most recent of3 resultswithin the time period is included. WBC 17.6(H) 4.4 - 10.7 x10E9/L 08/04/2022 3:51 AM CDT [facility] WBC Corrected 08/04/2022 3:51 AM CDT [facility] RBC 3.70(L) 3.80 - 5.20 x10E12/L 08/04/2022 3:51 AM CDT [facility] Hemoglobin 10.3(L) 12.0 - 15.6 gm/dL 08/04/2022 3:51 AM CDT [facility] Hematocrit 31.5(L) 35.9 - 45.5 % 08/04/2022 3:51 AM CDT [facility] MCV 85.1 80.7 - 98.3 fl 08/04/2022 3:51 AM CDT [facility] MCH 27.8 26.7 - 34.0 pg 08/04/2022 3:51 AM CDT [facility] MCHC 32.7 30.8 - 35.9 gm/dL 08/04/2022 3:51 AM CDT [facility] Platelet Count 207 153 - 416 x10E9/L 08/04/2022 3:51 AM CDT [facility] RDW-CV 14.7 12.1 - 14.9 % 08/04/2022 3:51 AM CDT [facility] MPV 10.8 9.4 - 12.9 fl 08/04/2022 3:51 AM CDT [facility] Neutrophils % 76.1(H) 44.0 - 73.0 % 08/04/2022 3:51 AM CDT [facility] Lymphocytes % 13.3(L) 20.0 - 43.0 % 08/04/2022 3:51 AM CDT [facility] Monocytes % 9.2 5.0 - 13.0 % 08/04/2022 3:51 AM CDT [facility] Eosinophils % 0.4 0.0 - 6.0 % 08/04/2022 3:51 AM CDT [facility] Basophils % 0.3 0.0 - 2.0 % 08/04/2022 3:51 AM CDT [facility] Immature Granulocytes 0.7 0 - 1 % 08/04/2022 3:51 AM CDT [facility] Neutrophil Absolute 13.38(H) 2.01 - 7.14 x10E9/L 08/04/2022 3:51 AM CDT [facility] Lymphocytes Absolute 2.34 1.07 - 3.94 x10E9/L 08/04/2022 3:51 AM CDT [facility] Monocytes Absolute 1.62(H) 0.26 - 1.07 x10E9/L 08/04/2022 3:51 AM CDT [facility] Eosinophils Absolute 0.07 0 - 0.47 x10E9/L 08/04/2022 3:51 AM CDT [facility] Basophils Absolute 0.05 0 - 0.08 x10E9/L 08/04/2022 3:51 AM CDT [facility] Immature Granulocytes Absolute 0.12(H) 0.00 - 0.06 x10E9/L 08/04/2022 3:51 AM CDT [facility] nRBC Auto 0 /100 WBC 08/04/2022 3:51 AM CDT [facility] Blood BLOOD SPECIMEN / Unknown Lab Venipuncture / Unknown 08/04/2022 3:23 AM CDT 08/04/2022 3:42 AM CDT Daniel Arauz MD LAB - HEMATOLOGY ORD ERABLES [facility] [address] [place], [place] [id number] * (ABNORMAL) BLOOD GASES CORD CONNOR (ISTAT) (08/03/2022 9:54 AM CDT) pH Cord Venous POCT 7.23(L) 7.28 - 7.40 pH 08/03/2022 10:01 AM CDT [facility] pCO2 Cord Venous POCT 42.4 35 - 45 mm hg 08/03/2022 10:01 AM CDT [facility] pO2 Cord Venous POCT 33 22 - 33 mm hg 08/03/2022 10:01 AM [facility] HCO3 Cord Arterial POCT 17.6(L) 22 - 24 mmol/L 08/03/2022 10:01 AM [facility] BE Cord Venous POCT Calc -10(L) -6.4 - 1.6 mmol/L 08/03/2022 10:01 AM [facility] TCO2 Cord Venous POCT 19(L) 22 - 30 mmol/L 08/03/2022 10:01 AM [facility] O2 Saturation % Cord Venous Calc POCT 52 % 08/03/2022 10:01 AM [facility] Site CORD CONNOR 08/03/2022 10:01 AM [facility] Sample iSTAT CORD CONNOR 08/03/2022 10:01 AM [facility] Blood CORD BLOOD SPECIMEN / Unknown 08/03/2022 9:54 AM CDT 08/03/2022 10:01 AM T Daniel Arauz MD LAB - POINT OF CARE ORDERABLES [facility] [address] [place], [place] [id number] * (ABNORMAL) BLOOD GASES CORD ART (ISTAT) (08/03/2022 9:49 AM CDT) pH Cord Arterial POCT 7.08(L) 7.20 - 7.34 pH 08/03/2022 10:01 AM [facility] pCO2 Cord Arterial POCT 69.2(H) 45 - 55 mm hg 08/03/2022 10:01 AM [facility] pO2 Cord Arterial POCT 20 12 - 25 mm hg 08/03/2022 10:01 AM [facility] HCO3 Cord Arterial POCT 20.3(L) 22 - 24 mmol/L 08/03/2022 10:01 AM [facility] BE Cord Arterial POCT -11(L) -2.9 - 8.3 mmol/L 08/03/2022 10:01 AM [facility] TCO2 Cord Arterial POCT 22 mmol/L 08/03/2022 10:01 AM CDT [facility] O2 Saturation Cord Art % Calc POCT 17 % 08/03/2022 10:01 AM CDT [facility] Site CORD ART 08/03/2022 10:01 AM CDT [facility] Sample iSTAT CORD ART 08/03/2022 10:01 AM CDT [facility] Blood CORD BLOOD SPECIMEN / Unknown 08/03/2022 9:49 AM CDT 08/03/2022 10:01 AM CDT Daniel Arauz MD LAB - POINT OF CARE ORDERABLES [facility] [address] [place], [place] [id number] * EPIDURAL BLOCK PERF (08/02/2022 11:30 PM [...] Staff: ?? Anesthesia Provider: ??Dulce Maria Holland APRN-CHRONOMETER ASSEMBLER AND ADJUSTER ?? - ?? performed the procedure Dat Gage DO GENERAL ANESTHESIA O RDERABLES * BLOOD TYPE VERIFICATION (08/02/2022 9:42 AM CDT) ABO Rh A POS 08/02/2022 10:29 AM CDT [facility] Blood Bank BLOOD SPECIMEN / Unknown Venipuncture / Unknown 08/02/2022 9:42 AM CDT 08/02/2022 9:54 AM CDT Daniel Arauz MD LAB - BLOOD BANK ORD ERABLES [facility] [address] [phone] * SYPHILIS ANTIBODY CASCADING REFLEX (08/02/2022 8:42 AM CDT) Treponema pallidum Antibody Non Reactive Non Reactive 08/02/2022 10:29 AM CDT [facility] Comment: No Laboratory evidence of syphilis infection. ?? Note: ??Circulating antibodies may be low or undetectable in early infection. ??If recent exposure is suspected, re-draw sample in 2-4 weeks and repeat testing. Blood BLOOD SPECIMEN / Unknown Venipuncture / Unknown 08/02/2022 8:42 AM CDT 08/02/2022 9:21 AM CDT Daniel Arauz MD LAB - SEROLOGY ORDER NOHEMY Performing Organization Address [facility] Co de Phone Number [facility] [address] [place] [address] * TYPE + SCREEN PANEL (08/02/2022 8:42 AM CDT) ABO Rh A POS 08/02/2022 10:16 AM CDT [facility] Comment:No history; collect retype. Antibody Screen NEG 10:16 AM CDT [facility] Blood Bank BLOOD SPECIMEN / Unknown Venipuncture / Unknown 08/02/2022 8:42 AM CDT 08/02/2022 9:21 AM CDT Daniel Arauz MD LAB - BLOOD BANK ORD ERABLES Performing Organization Address [facility] Co de Phone Number [facility] [address] [place] [address] * URINALYSIS - POINT OF CARE (AMB) [facility] (07/25/2022) Only the most recent of11 resultswithin the time period is included. Specific [place]ham UA 1.015 pH UA 7 WBC UA + Nitrite UA n Protein UA trace Glucose UA n Ketones UA POCT n Urobilinogen UA n Bilirubin UA POCT n Blood Urine POCT n Urine URINE / Unknown 07/25/2022 Emily Mukherjee MD LAB - POINT OF CARE ORDERABLES * CULTURE STREP B (07/11/2022 3:51 PM CDT) Culture [facility] Comment: ??STREPTOCOCCUS, GROUP B CULTURE ?Micro Number: ?[id number] ??Test Status: ? Final ??Specimen Source: ?? Anorectum/va ??Specimen Quality: ??Adequate ??Result: ?No group B Streptococcus isolated ? Note per CDC guidelines optimal recovery is ? achieved by swabbing both the lower vagina and ? rectum (through the anal sphincter). Test Performed at: [facility] ??[id number] DEE ARELLANO MD Microbiology MISCELLANEOUS SAMPLES / Unknown 07/11/2022 3:51 PM CDT 07/12/2022 1:56 AM CDT Emily Mukherjee MD LAB - MICROBIOLOGY ORDERABLES Performing Organization Address [facility]/State/[facility] Co de Phone Number [address] [address] * NE SONO FU OR REPEAT (07/11/2022 3:12 PM [...] OTHER INFORMATION Carin Hernandez RN Non-Stress Test [facility] Patient Name: Nikki Reddy LMP: Patient's last menstrual period was 09/14/2021. Gestational Age: 35w3d as of 07/05/2022 Estimated Date of Delivery: 08/06/22 Indications: Abdominal pain in NST date: 07/05/2022 NST duration: >20 mins Interpretation: Baseline: ??130 beats/minute moderate variability ?Reactive ?Contractions: ??none ?Decelerations: ??none Impression and Plan: FWB reassuring, continue monitoring as scheduled. Jazmin Wahl MD 07/05/2022 1:30 AM Cindy Jesus MD [facility] ORDERABLES * (ABNORMAL) URINE MICROSCOPIC ONLY REFLEX TO CULTURE (07/04/2022 10:12 PM CDT) Reflex Status Culture to follow 07/04/2022 10:34 PM CDT [facility] RBC UA 3-5 0 - 5 # /hpf 07/04/2022 10:34 PM CDT [facility] WBC UA 6-10(A) 0 - 5 # /hpf 07/04/2022 10:34 PM CDT [facility] Bacteria UA Trace(A) None Seen 07/04/2022 10:34 PM CDT [facility] Squamous Epithelial Cells >20(A) 0 - 5 /hpf 07/04/2022 10:34 PM CDT [facility] Mucus UA 1+ /LPF 07/04/2022 10:34 PM CDT [facility] Urine URINE SPECIMEN OBTAINED BY CLEAN CATCH PROCEDURE / Unknown Collection / Unknown 07/04/2022 10:12 PM CDT 07/04/2022 10:19 PM CDT Narrative [facility] - 07/04/2022 10:34 PM CDT Adrienne Leo MD LAB - URINALYSIS OR DERABLES Performing Organization Address City/[facility]/ZIP Co de Phone Number [facility] [address] [place] [address] * (ABNORMAL) URINALYSIS REFLEX MICROSCOPIC REFLEX CULTURE (07/04/2022 10:12 PM CDT) Color UA Kamila(A) Straw, Yellow 07/04/2022 10:26 PM CDT [facility] Clarity UA Cloudy(A) Clear 07/04/2022 10:26 PM CDT [facility] Glucose UA Negative Negative 07/04/2022 10:26 PM CDT [facility] Bilirubin UA Negative Negative 07/04/2022 10:26 PM CDT [facility] Ketone UA 1+(A) Negative 07/04/2022 10:26 PM CDT [facility] Specific [place] UA 1.019 1.005 - 1.030 07/04/2022 10:26 PM CDT [facility] Blood UA Negative Negative 07/04/2022 10:26 PM CDT [facility] pH UA 6.0 5.0 - 8.0 pH 07/04/2022 10:26 PM CDT [facility] Protein UA Negative Negative 07/04/2022 10:26 PM CD[address] [facility] Urobilinogen UA Negative Negative mg/dL 07/04/2022 10:26 PM CDT [facility] Nitrite UA Negative Negative 07/04/2022 10:26 PM CD[address] [facility] Leukocyte UA 3+(A) Negative 07/04/2022 10:26 PM CDT [facility] Urine Microscopy Urine microscopy to follow 07/04/2022 10:26 PM CDT [facility] Reflex Status Culture to follow 07/04/2022 10:26 PM CDT [facility] Urine URINE SPECIMEN OBTAINED BY CLEAN CATCH PROCEDURE / Unknown Collection / Unknown 07/04/2022 10:12 PM CDT 07/04/2022 10:19 PM CDT Narrative [facility] - 07/04/2022 10:26 PM CDT Adrienne Leo MD LAB - URINALYSIS OR DERABLES [facility] [address] [place] [address] * NE SONO FU OR REPEAT (06/13/2022 3:16 PM [employer]) Narrative Vasyl Brittni ChipVIOLETTE - 06/13/2022 3:16 PM [employer] Brittni FallonVIOLETTE ? 06/13/2022 ??3:16 PM Documentation in digisonics. Emily Mukherjee MD PROCEDURE/MINOR SABRINA GICAL ORDERABLES * NE SONO FU OR REPEAT (05/16/2022 3:02 PM [employer]) Narrative Herbie Branham RDMS - 05/16/2022 3:02 PM [employer] Herbie Branham RDMS ? 05/16/2022 ??3:03 PM Documentation in digisonics. Emily Mukherjee MD PROCEDURE/MINOR SABRINA GICAL ORDERABLES * HIV-1 HIV-2 ANTIBODY + HIV P24 AG PANEL (05/16/2022) Only the most recent of2 resultswithin the time period is included. [facility] HIV Screen 4th Generation w Reflex [...] ?? For additional information please refer to http://education.[employer] Plan/faq/CGO539 (This link is being provided for informational/ educational purposes only.) The performance of this assay has not been clinically validated in patients less than 2 years old. Test Performed at: [facility] [id number] [place] [address] ??[id number] DEE ARELLANO MD Blood BLOOD SPECIMEN / Unknown 05/16/2022 05/16/2022 3:17 PM [employer] Emily Mukherjee MD LAB - CHEMISTRY ORD ANCA Performing Organization Address [facility]/ZIP Co de Phone Number [facility] [id number] [place] [address] * TREPONEMA PALLIDUM POS REFLX RPR (05/16/2022) Only the most recent of2 resultswithin the time period is included. Pathologist [facility] Treponema pallidum Antibody EIA NEGATIVE NEGATIVE [facility] Comment: No antibodies to T. pallidum (the agent causing syphilis) were detected in the specimen. This result, however, does not exclude very recent T. pallidum infection; testing of a second specimen, collected 2-4 weeks after this specimen, is recommended if the index of suspicion for recent infection is high. REPORT COMMENT: FASTING:NO Test Performed at: [facility] [address] ??[phone] IZZY Griffiths NESTOR Blood BLOOD SPECIMEN / Unknown 05/16/2022 05/16/2022 3:17 PM CANNON CREWMEMBER Emily Mukherjee MD LAB - SEROLOGY JESSICA LOPEZ Performing Organization Address City/[facility]/ZIP Co de Phone Number [facility] [address] [place] [address] * (ABNORMAL) CBC W/O DIFFERENTIAL (05/16/2022) Pathologist [facility] White Blood Cell Count 13.1(H) 3.8 - [...] 12.5 fL [facility] Comment: Test Performed at: [facility] [address] [address] ??[phone] DEE ARELLANO MD Blood BLOOD SPECIMEN / Unknown 05/16/2022 05/16/2022 3:17 PM CANNON CREWMEMBER Emily Mukherjee MD LAB - HEMATOLOGY OR DERABLES Performing Organization Address [facility] Co de Phone Number [facility] [address] [place] [address] * GTT 1 HR (50G) GESTATIONAL SCREEN (04/30/2022 8:04 AM CANNON CREWMEMBER) Glucose Gestational Screen 128 <140 mg/dL [facility] Comment: REPORT COMMENT: FASTING:YES Test Performed at: [facility] ??[phone] JENNIFER AMOR DO,MPH Blood BLOOD SPECIMEN / Unknown 04/30/2022 8:04 AM CANNON CREWMEMBER 04/30/2022 8:10 AM CANNON CREWMEMBER Emily Mukherjee MD LAB - CHEMISTRY ORD ERABLES Performing Organization Address [facility] Co de Phone Number [phone] [place] [address] * NE ULTRASND,PREG UTERUS,IMAGE DOC (03/21/2022 3:39 PM CANNON CREWMEMBER) Narrative Camelia Montes - 03/21/2022 3:39 PM CANNON CREWMEMBER Camelia Montes ? 03/21/2022 ??3:39 PM Documentation [...] a test for HCV RNA (test code 10782) is suggested. For additional information please refer to http://education.Eptica/faq/BLO07a0 (This link is being provided for informational/ educational purposes only.) Test Performed at: [facility] [address] [place], [place] ??[phone] JENNIFER AMOR DO,MPH 12/25/2021 12:3 4 PM CDT 12/25/2021 12:39 PM CDT Emily Mukherjee MD LAB - CHEMISTRY ORD ANCA Performing Organization Address [facility] de Phone Number [facility] [address] [place] [address] * RUBELLA ANTIBODY IGG (12/25/2021 12:34 PM CDT) Rubella Antibody 2.43 Index [facility] Comment: ?Index ?Interpretation ?----- ?<0.90 ?Not consistent with immunity ?0.90-0.99 ?Equivocal ?> or = 1.00 ?Consistent with immunity The presence of rubella IgG antibody suggests immunization or past or current infection with rubella virus. Test Performed at: [facility] [address] [place], [place] ??[address] JENNIFER AMOR DO,MPH 12/25/2021 12:3 4 PM CDT 12/25/2021 12:39 PM CDT Emily Mukherjee MD LAB - SEROLOGY ORDYazan LOPEZ Performing Organization Address [facility] de Phone Number [facility] [address] [place] [address] * BLOOD TYPE ABO+ RH PANEL (12/25/2021 12:34 PM CDT) [facility] ABO A [facility] Rh Type RH(D) POSITIVE [facility] Comment: For additional information, please refer to http://education.Tapad/faq/KDT847 (This link is being provided for informational/ educational purposes only.) REPORT COMMENT: VARIFIED ALL INFO FASTING:NO PATIENT UNABLE TO VOID; ADVISED TO RETURN FOR COL Test Performed at: [facility] [address] [place] [address] ??[phone] JENNIFER AMOR DO,MPH 12/25/2021 12:3 4 PM CDT 12/25/2021 12:39 PM CDT Emily Mukherjee MD LAB - BLOOD BANK OR DERABLES Performing Organization Address [facility] de Phone Number [facility] [address] [place] [address] * ANTIBODY SCREEN (12/25/2021 12:34 PM CDT) [facility] Antibody Screen NO ANTIBODIES DETECTED [facility] Comment: ?Reference range ?No antibodies detected This assay is a screening test for the detection of red blood cell antibodies. The test is not to be used for pretransfusion screening or for the medical management of an alloimmunized . ? Test Performed at: [facility] ??[phone] JENNIFER AMOR DO,MPH 12/25/2021 12:3 4 PM CDT 12/25/2021 12:39 PM CDT Emily Mukherjee MD LAB - BLOOD BANK OR DERABLES Performing Organization Address [facility] de Phone Number [facility] [address] [place] [address] * HEPATITIS B SURFACE ANTIGEN W RFLX CONFIRMATION (12/25/2021 12:34 PM CDT) [facility] Hepatitis B Virus Surface Antigen NON-REACT DALIA NON-REACT DALIA [facility] Comment: Test Performed at: [facility] [place], [place] ??[address] JENNIFER AMOR DO,MPH Confirmation [facility] Comment: Test Performed at: [facility] [place] [address] [place], [place] ??[phone] JENNIFER AMOR DO,MPH 12/25/2021 12:3 4 PM CDT 12/25/2021 12:39 PM CDT Emily Mukherjee MD LAB - CHEMISTRY ORD ERABLES [facility] [address] [place] [address] * C. TRACHOMATIS + N. GONORRHOEAE + [...] Gen-Probe Aptima Trichomonas vaginalis Assay on the Zuvvu system and rectal and pharyngeal swabs with Gen-Probe Aptima combo 2 were determined by the [facility] at [facility]. ??They have not been cleared or approved [...] ORDERABLES [facility] [address] [place] [address], [facility] [phone] * NE ULTRASND,PREG UTER,TRANSVAGIN (12/20/2021 2:57 PM CDT) Narrative Brittni Fallon RDMS - 12/20/2021 2:57 PM CDT Brittni Fallon RDMS ? 12/20/2021 ??2:58 PM Documentation in digisonics. Emily Mukherjee MD PROCEDURE/MINOR SABRINA GICAL ORDERABLES * NE ARTIF INSEMINATION,INTRA-UTERINE, NE SPERM WASHING FOR ARTIF INSEM (11/15/2021 8:29 [...] analytical performance characteristics have been determined by [facility]. It has not been cleared or approved by FDA. This assay has been validated pursuant to the CLIA regulations and is used for clinical purposes. Test Performed at: [facility] [address] [place], [place] ??[phone] AMANUEL CARRANZA MD,PHD,TITI Blood BLOOD SPECIMEN / Unknown 10/27/2021 7:46 AM CDT 10/27/2021 7:48 AM CDT Emily Mukherjee MD LAB - CHEMISTRY ORD ERABLES Performing Organization Address City/State/[facility] Co de Phone Number [facility] [address] [place] [address] * GTT 2 HR (75G) NON GESTATIONAL (10/27/2021 7:46 AM CDT) Fasting Specimen 92 65 - 99 mg/dL [facility] 2 Hour Specimen 108 <140 mg/dL [facility] See Below [facility] Comment: [place] [employer] Diagnostic Criteria for Diabetes Mellitus ?Glucose Value (mg/dL) Interpretation ?Fasting ?2 hr Tolerance ?------- ? Normal ?<100 ? <140 Impaired Fasting ?100-125 Impaired Tolerance ? 140-199 Diabetes ? > or =126* ? > or =200* * Must be confirmed by testing on a subsequent day. Test Performed at: [facility] [place] [address] [place], [place] ??[phone] JENNIFER AMOR DO,MPH Blood BLOOD SPECIMEN / Unknown 10/27/2021 7:46 AM CDT 10/27/2021 7:48 AM CDT Emily Mukherjee MD LAB - CHEMISTRY ORD ERABLES Performing Organization Address [facility] de Phone Number [facility] [phone] [place] [address] * DHEA SULFATE (10/27/2021 7:46 AM CDT) Dehydroepiandrosterone Sulfate (DHEAS) 282 14 - 349 mcg/dL [facility] Comment: Test Performed at: [facility] [place] [address] [place], [place] ??[phone] JENNIFER AMOR DO,MPH Blood BLOOD SPECIMEN / Unknown 10/27/2021 7:46 AM CDT 10/27/2021 7:48 AM CDT Emily Mukherjee MD LAB - CHEMISTRY ORD ERABLES Performing Organization Address [facility] de Phone Number [facility] [phone] [place] [address] * TESTOSTERONE TOTAL (10/27/2021 7:46 AM CDT) Pathologist [facility] Testosterone Total MS 38 2 - 45 ng/dL [facility] Comment: For additional information, please refer to https://education.Power Africa.Errand Boy Delivery Business Plan/faq/TotalTestosteroneLCMSMS (This link is being provided for informational/educational purposes only.) (Note) This test was developed and its analytical performance characteristics have been determined by [facility]. It has not been cleared or approved by the FDA. This assay has been validated pursuant to the CLIA regulations and is used for clinical purposes. [facility] [address] [address],[address] [facility] [address] Emily Hooks MD REPORT COMMENT: FASTING:YES Test Performed at: [facility] [address] [address] [address] [place], [place] ??[phone] EMILY HOOKS MD Blood BLOOD SPECIMEN / Unknown 10/27/2021 7:46 AM CDT 10/27/2021 7:48 AM CDT Emily Mukherjee MD LAB - CHEMISTRY ORD [employer]ES Performing Organization Address [facility] Phone Number [facility] [address] [place] [address] * PROLACTIN (10/27/2021 7:46 AM CDT) Pathologist [facility] Prolactin 8.1 ng/mL [facility] Comment: ?Reference Range Females ?Non- ?3.0-30.0 ? 10.0-209.0 ?Postmenopausal ?2.0-20.0 ? Test Performed at: [facility] ??[phone] JENNIFER AMOR DO,MPH Blood BLOOD SPECIMEN / Unknown 10/27/2021 7:46 AM CDT 10/27/2021 7:48 AM CDT Emily Mukherjee MD LAB - CHEMISTRY ORD [employer] Performing Organization Address [facility] Phone Number [facility] [address] [place] [address] * (ABNORMAL) VITAMIN D 25-HYDROXY (10/27/2021 7:46 AM CDT) Pathologist [facility] Vitamin D, 25 Hydroxy 22(L) 30 - [...] D, (D2,D3), LC/MS/MS is recommended: order code 90214 (patients >2yrs). See Note 1 Note 1 For additional information, please refer to http://education.Tapad/faq/MOR874 (This link is being provided for informational/ educational purposes only.) Test Performed at: [facility] [address] [place], [place] ??[phone] JENNIFER AMOR DO,MPH Blood BLOOD SPECIMEN / Unknown 10/27/2021 7:46 AM CDT 10/27/2021 7:48 AM CDT Emily Mukherjee MD LAB - CHEMISTRY ORD ERABLES Performing Organization Address [facility] Phone Number [facility] [address] [address] [place] [phone] * TSH (10/27/2021 7:46 AM CDT) TSH 2.01 mIU/L [facility] Comment: ?Reference Range ?> or = 20 Years ??0.40-4.50 ? Ranges ?First trimester ?0.26-2.66 ?Second trimester ?? 0.55-2.73 ?Third trimester ?0.43-2.91 Test Performed at: [facility] [address] [place], [place] ??[address] JENNIFER AMOR DO,MPH Blood BLOOD SPECIMEN / Unknown 10/27/2021 7:46 AM CDT 10/27/2021 7:48 AM CDT Emily Mukherjee MD LAB - CHEMISTRY ORD ERABLES Performing Organization Address [facility] Co de Phone Number [facility] [address] [address] [place] [phone] * (ABNORMAL) LIPID PROFILE (10/27/2021 7:46 AM [...] LDL-C. Sandor SS et al. SHAUNA. 2013;310(19): 4721-4755 (http://education.Tapad/faq/TJM568) CHOL/HDLC RATIO 3.3 <5.0 (calc) [facility] Non HDL Cholesterol 115 <130 mg/dL (calc) [facility] Comment: For patients with diabetes plus 1 major ASCVD risk factor, treating to a non-HDL-C goal of <100 mg/dL (LDL-C of <70 mg/dL) is considered a therapeutic option. Test Performed at: [facility] [address] [place] [address] ??[phone] JENNIFER AMOR DO,MPH Blood BLOOD SPECIMEN / Unknown 10/27/2021 7:46 AM CDT 10/27/2021 7:48 AM CDT Emily Mukherjee MD LAB - CHEMISTRY ORD ERABLES Performing Organization Address [facility] Co de Phone Number [facility] [address] [place] [address] * US SONOHYSTEROGRAM (09/21/2021) Anatomical Region Laterality Modality Pelvis, Abdomen Ultrasound Narrative 09/21/2021 Tabby Roberts MD ? 09/21/2021 ??2:35 PM See digi Procedure Note Tabby Roberts MD - 09/21/2021 2:34 PM CDT See digi Tabby Roberts MD [facility] Care Teams Pediatric Hospitalist Relationship Specialty Start Date End Date Hazel Foley, HISTORICAL INTERPRETER-DIE REPAIRER [address] [place] [address] PCP - General Nurse Practitioner Family 02/05/24
--- OUTSIDE RECORDS SUMMARY | 2024-05-03 23:30 | XMS_ITS | Clinical Summary ---
Author Organization [facility] Address [address] [address] [place] [address] Phone Care Team Providers Care Climate Change Analyst Name Role Phone Unavailable Primary Care Provider [...] on file Payer ID:Not on file Group ID:[id number] Type:RX Commercial Address: [place]
--- OUTSIDE RECORDS SUMMARY | 2024-05-03 23:30 | XMS_ITS | Encounter Summary ---
Author Organization [facility] Address [address] [place] [address] Care Team Providers Care Oil Lease Operator Name Role Phone Unavailable Primary Care Provider [...]
--- NOTE | 2024-05-03 23:46 | ED.PREGNANCY ---
HPI - General Chief complaint: Vaginal Bleeding Stated complaint: 10w preg, bleeding/cramping Time Seen by Provider: 05/03/24 23:13 Source: patient Mode of arrival: ambulatory Limitations: no limitations History of Present Illness HPI Narrative: Patient is a 28 y/o female who presents to the ED with c/o vaginal bleeding. Patient is and currently [address] Mukherjee with reproductive endocrinology with [facility]. States she had an ultrasound outpatient clinic around 7 weeks gestation which showed IUP. She then had another elective outpatient ultrasound at 8 weeks which showed a possible subchorionic hematoma. Patient developed slight vaginal bleeding today. Noticed small clots with wiping. States the bleeding has been very light. Has not filled through a pad. Reports mild lower abdominal cramping. Denies nausea, vomiting, dysuria, hematuria. Related Data Home Medications ?Medication ?Instructions ?Recorded ?Confirmed ?Last Taken ?Type azithromycin 250 mg tablet 250 mg PO DIRECTED 02/15/21 02/15/21 02/15/21 History medroxyprogesterone 10 mg tablet 10 mg PO DAILY PCOS 02/15/21 02/15/21 02/15/21 History Allergies Allergy/AdvReac Type Severity Reaction Status Date / Time No Known Allergies Allergy Verified 05/03/24 20:20 Review of Systems Review of Systems: All systems reviewed & are unremarkable except as noted in HPI. All systems reviewed & are unremarkable except as noted in HPI and below Exam Narrative: GENERAL: Well appearing, well-nourished, non-toxic, in no acute distress. HEAD: Normocephalic, atraumatic. RESPIRATORY: Airway patent, respirations nonlabored. Clear to auscultation bilaterally, no rales, rhonchi, wheezing. CARDIOVASCULAR: Regular rate and rhythm without murmurs, rubs, or gallops. ABDOMINAL: Soft, no tenderness throughout abdomen, nondistended. Normoactive BS. MUSCULOSKELETAL: Moves all extremities. No gross deformities. SKIN: Warm, dry, normal color. NEURO: A&O X3. Speech clear. PSYCHIATRIC: Appropriate mood and affect. Normal interaction. Course Vital Signs Vital signs: Vital Signs Temperature 97.1 F L 05/03/24 20:20 Pulse Rate 90 05/03/24 20:20 Respiratory Rate 18 05/03/24 20:20 Blood Pressure 135/79 05/03/24 20:20 Pulse Oximetry 100 05/03/24 20:20 Oxygen Delivery Room Air 05/03/24 20:20 Temperature 97.1 F L 05/03/24 20:20 Pulse Rate 90 05/03/24 20:20 Respiratory Rate 18 05/03/24 20:20 Blood Pressure 135/79 05/03/24 20:20 Pulse Oximetry 100 05/03/24 20:20 Oxygen Delivery Room Air 05/03/24 20:20 MDM - OB/Uterine Contractions MDM Narrative Medical decision making narrative: Patient presented to ED with vaginal spotting, currently 10 weeks gestation. Reports confirmed IUP via outpatient ultrasound, but did show subchorionic hematoma. Vital signs are stable upon arrival. Patient is in no acute distress. Unfortunately formal ultrasound is not available to me at this time of night, given that patient has had confirmed IUP. I utilized bedside ultrasound myself and was able to visualize the fetus in utero with active movement and good cardiac activity. Patient and family very reassured by this. Discussed likelihood of bleeding coming from known subchorionic. H&H is stable on blood work. Beta hCG nearly 53,000. Urine does appear infectious with 21-50 white blood cell count, 3+ urine bacteria. Sent for culture. Will treat given status. Could be contaminated catch. Blood type is A+, no indication for rhogam. Patient has a follow-up with her OBGYN next week. Feel patient is safe for discharge home at this time. Discussed pelvic rest until seen by OBGYN, advised to continue to monitor bleeding. Given return precautions. Discharged in stable condition. Medical Records Attestation: I reviewed the patient's medical records. Lab Data Attestation: I reviewed the patient's lab results. 05/03/24 23:50 05/03/24 23:51 Labs: Lab Results 05/03/24 05/03/24 Range/Units 23:50 23:51 WBC 11.8 H (4.5-10.0) K/mm3 RBC 4.56 (4.2-5.4) M/mm3 Hgb 13.2 (12.0-15.0) g/dL Hct 39.8 (37.0-47.0) % MCV 87.3 (80-100) fl MCH 28.9 (26-34) pg MCHC 33.2 (32-36) g/dl RDW 13.1 (11.5-14.5) % Plt Count 267 (150-375) k/mm3 MPV 9.3 (7.4-10.4) fl Immature Gran % (Auto) 0.4 (0-0.5) % Neut % (Auto) 66.1 (45.5-73.1) % Lymph % (Auto) 22.3 (18.3-44.2) % Hendry % (Auto) 10.1 H (2.6-8.5) % Eos % (Auto) 0.7 (0-4.4) % Baso % (Auto) 0.4 (0.2-1.2) % Lymph # (Auto) 2.63 (0.9-3.2) K/mm3 Hendry # (Auto) 1.2 H (0.1-0.6) K/mm3 Eos # (Auto) 0.1 (0-0.3) K/mm3 Baso # (Auto) 0.1 (0.0-0.1) K/mm3 Abs Immat Gran (auto) 0.05 H (0.00-0.031) K/mm3 Absolute Neuts (auto) 7.8 H (1.3-6.7) K/mm3 Absolute Nucleated RBC 0.000 (0.0-0.012) K/mm3 Nucleated RBC % 0.0 (0.0-0.2) % PT 13.9 (11.1-14.7) Seconds INR 1.0 APTT 30.7 (22.3-36.8) Seconds Sodium 138 (137-145) mmol/L Potassium 3.7 (3.4-5.0) mmol/L Chloride 102 (98-107) mmol/L Carbon Dioxide 25 (22-30) mmol/L Anion Gap 11 (4-12) mmol/L BUN 12 (7-17) mg/dL Creatinine 0.60 L (0.7-1.0) mg/dL Estim Creat Clear Calc 125 ml/min Estimated GFR > 60 (59 - ) Glucose 84 (65-110) mg/dL Calcium 9.2 (8.4-10.2) mg/dL Total Bilirubin 0.5 (0.2-1.3) mg/dL AST 22 (14-36) U/L ALT 24 (6-35) U/L Alkaline Phosphatase 68 (38-126) U/L Total Protein 7.0 (6.3-8.2) g/dL Albumin 4.3 (3.5-5.1) g/dL Beta HCG, Quant 40907.00 mIU/ML Urine Color Yellow (Yellow) Urine Appearance Cloudy H (Clear) Urine pH 6.0 (5.0-9.0) Ur Specific Morrice 1.032 (1.001-1.035) Urine Protein Trace (Negative) mg/dL Urine Glucose (UA) Negative (Negative) mg/dL Urine Ketones Trace H (Negative) mg/dL Ur Blood (Man) 2+ H (Negative) Urine Nitrate Negative (Negative) Urine Bilirubin Negative (Negative) Urine Urobilinogen 1.0 (<2.0) mg/dL Add Ur Microanalysis Reviewed Leukocyte Esterase Rfl 2+ H (Negative) JARET/UL Urine RBC 6-10 H (0-2) /hpf Urine WBC 21-50 H (0-3) /hpf Ur Squamous Epith Cells Few (Few) /hpf Urine Bacteria 3+ H /hpf Urine Casts 6-10 Discharge Plan Discharge Clinical Impression: Threatened , 10 weeks gestation of , Asymptomatic bacteriuria during Patient Disposition: Home, Self-Care Condition: Stable Instructions: Antibiotic Form, Threatened Miscarriage (ED), Urinary Tract Infection in (ED) Additional Instructions: Your workup here was reassuring. Follow-up with your equal opportunity specialist next week at your scheduled appointment. Continue to monitor bleeding. Recommend pelvic rest until seen by OB-no tampons, heavy lifting, intercourse. Return to the ED if you experience worsening or severe pain or bleeding, unable to keep down food or drink, fevers, or any other symptoms of concern. Your urine showed signs of possible infection. Take antibiotics as prescribed. Follow-up with OB for urine culture results. Patient Language: Latvian Prescriptions: New nitrofurantoin monohyd/m-cryst 100 mg capsule 100 mg PO Q12H 5 Days Qty: 10 0RF Rx Instructions: must administer with a meal/food No Action medroxyprogesterone 10 mg tablet 10 mg PO DAILY Rx Instructions: FOR 10 DAYS azithromycin 250 mg tablet 250 mg PO DIRECTED prednisone 50 mg tablet 50 mg PO DAILY 5 Days Qty: 5 0RF Follow-up/Referrals: Alaina,Hazel Curiel, MOLDER MACHINE TENDER [Primary Care Provider] - Time of Disposition: 01:03
[2024-05-03 23:57] LABS: Basophils Absolute Auto 0.1 K/mm3 (0.0-0.1); Basophils Percent Auto 0.4 % (0.2-1.2); Eosinophils Absolute Auto 0.1 K/mm3 (0-0.3); Eosinophils Percent Auto 0.7 % (0-4.4); Hematocrit 39.8 % (37.0-47.0); Hemoglobin 13.2 g/dL (12.0-15.0); Immature Granulocyte Absolute 0.05 K/mm3 (0.00-0.031); Immature Granulocyte Percent A 0.4 % (0-0.5); Lymphocytes Absolute Auto 2.63 K/mm3 (0.9-3.2); Lymphocytes Percent Auto 22.3 % (18.3-44.2); Mean Corpuscular HGB Conc 33.2 g/dl (32-36); Mean Corpuscular Hemoglobin 28.9 pg (26-34); Mean Corpuscular Volume 87.3 fl (80-100); Mean Platelet Volume 9.3 fl (7.4-10.4); Monocytes Absolute Auto 1.2 K/mm3 (0.1-0.6); Monocytes Percent Auto 10.1 % (2.6-8.5); Neutrophils Absolute Auto 7.8 K/mm3 (1.3-6.7); Neutrophils Percent Auto 66.1 % (45.5-73.1); Platelet Count Result 267 k/mm3 (150-375); Red Blood Count 4.56 M/mm3 (4.2-5.4); Red Cell Distribution Width 13.1 % (11.5-14.5); White Blood Count 11.8 K/mm3 (4.5-10.0)
[2024-05-04 00:08] LABS: Alanine Aminotransferase 24 U/L (6-35); Albumin Level 4.3 g/dL (3.5-5.1); Alkaline Phosphatase 68 U/L (38-126); Anion Gap 11 mmol/L (4-12); Aspartate Amino Transferase 22 U/L (14-36); Bilirubin,Total 0.5 mg/dL (0.2-1.3); Blood Urea Nitrogen 12 mg/dL (7-17); Calcium 9.2 mg/dL (8.4-10.2); Carbon Dioxide 25 mmol/L (22-30); Chloride 102 mmol/L (98-107); Estimated CRCL calculation 125 ml/min; Estimated Glomerular Filt Rate > 60; Glucose 84 mg/dL (65-110); Potassium 3.7 mmol/L (3.4-5.0); Sodium 138 mmol/L (137-145)
[2024-05-04 00:16] LABS: Add Urine Microscopic? YES; Appearance Urine Cloudy (Clear); Bacteria Urine 3+ /hpf; Bilirubin Urine Negative (Negative); Blood Urine 2+ (Negative); Color Urine Yellow (Yellow); Glucose Urine UA Negative (Negative); Ketones Urine Trace mg/dL (Negative); Leukocyte Esterase Ur 2+ LEU/UL (Negative); Need Manual Microscopic Reviewed; Nitrate Urine Negative (Negative); Protein Urine Trace mg/dL (Negative); Specific Grav Ur 1.032 (1.001-1.035); Squamous Epithelial Cell Urine Few /hpf (Few); WBC Urine 21-50 /hpf (0-3)
[2024-05-04 00:20] VITALS: BP 132/76; PULSE 88; RESP 16; O2SAT 99
[2024-05-04 00:22] LABS: Prothrombin Time 13.9 Seconds (11.1-14.7)
[2024-05-04 00:23] LABS: Partial Thromboplastin Time 30.7 Seconds (22.3-36.8)
[2024-05-04 01:23] VITALS: BP 133/73; PULSE 86; RESP 18; O2SAT 100
[2024-05-04 01:26] VITALS: BP 133/73; PULSE 86; RESP 18; O2SAT 100
== END 2024-05-04 01:27 | disposition home or self-care (01) ==
PROVIDERS: Emergency Provider Physician Assistant; PCP Nurse Practitioner Family
DX: O20.0 Threatened abortion (principal); O26.891 Other specified pregnancy related conditions, first trimester; R82.71 Bacteriuria; Z3A.10 10 weeks gestation of pregnancy
CPT/HCPCS: 36415; 80053; 81001; 84702; 85025; 85461; 85610; 85730; 86850; 86900; 86901; 87086; 99283